=== PATIENT | male | born 1950 | race Caucasian/White ===

== ENCOUNTER → 2016-12-23 | Outpatient (CLI) | payer OTHER ==
--- NOTE | 2016-12-23 08:56 | US ---
EXAMINATION TYPE: US kidneys/renal and bladder DATE OF EXAM: 12/23/2016 COMPARISON: NONE CLINICAL HISTORY: N18.9 Chronic Kidney Disease. EXAM MEASUREMENTS: Right Kidney: 11.2 x 5.9 x 4.9 cm Left Kidney: 11.2 x 5.4 x 4.8 cm Right Kidney: no evidence of hydronephrosis or mass Left Kidney: cystic area mid = 2.1 x 2.4 x 2.9cm Bladder: appears wnl Bilateral Jets seen: yes The right kidney appears morphologically normal. There is a cystic lesion in the mid polar region of the left kidney measured 2.1 x 2.4 x 2.9 cm. This has low-level internal echoes and does not meet the requirements of simple cyst. IMPRESSION: 2.9 CM CYSTIC LESION IN THE LEFT KIDNEY DOES NOT MEET THE REQUIREMENTS OF A SIMPLE CYST. FURTHER INVE STIGATION WITH CT OR MR WOULD BE SUGGESTED.
== END | disposition home or self-care (01) ==
LOC: RADUSWWP 08:07
PROVIDERS: ATTEND Family Medicine
DX: Q61.9 Cystic kidney disease, unspecified (principal); N18.9 Chronic kidney disease, unspecified
CPT/HCPCS: 76770

== ENCOUNTER → 2017-01-13 | Outpatient (CLI) | payer MEDICARE, OTHER | END | disposition home or self-care (01) | LOC: LABWHC1 14:13 | PROVIDERS: ATTEND Internal Medicine | DX: Z01.812 Encounter for preprocedural laboratory examination (principal) | CPT/HCPCS: 36415; 82565 ==

== ENCOUNTER → 2017-01-15 | Outpatient (CLI) | payer MEDICARE, OTHER | END | disposition home or self-care (01) | LOC: RADMRIMAIN 07:54 | PROVIDERS: ATTEND Internal Medicine | DX: Z53.9 Procedure and treatment not carried out, unspecified reason (principal) ==

== ENCOUNTER → 2017-03-27 | Outpatient (CLI) | payer MEDICARE, OTHER ==
--- NOTE | 2017-03-27 13:30 | NM ---
EXAMINATION TYPE: NM stress cardiolite complete DATE OF EXAM: 03/27/2017 COMPARISON: NONE HISTORY: History of hypertension, diabetes, hypercholesteremia, and family history of coronary artery disease presents with chest pain and difficulty in breathing. TECHNIQUE: After the intravenous administration of 11.2 mCi Tc 99m Sestamibi - Rest images obtained 45 minutes post injection. The patient exercised using a CARO protocol and 1 minute prior to peak exercise was injected with 28.0 mCi Tc 99m Sestamibi - Stress images obtained 10 minutes post injecti on. FINDINGS: Targeted heart rate was achieved during performance of the study. Review of stress and rest SPECT waqas ges demonstrates no distinct perfusion abnormality. Gated analysis shows normal wall motion with an estimated left ventricular ejection fraction of 63 %. IMPRESSION: No convincing scintigraphic evidence for reversible ischemia
--- NOTE | 2017-03-27 22:04 | EST ---
EXERCISE STRESS Baseline EKG revealed a normal sinus rhythm with right bundle branch block pattern, and there was evidence of leftward axis. Patient walked for 4 minutes on standard Frederic protocol. Maximum heart rate was 136 beats per minute, more than 85% of predicted maximal. Resting blood pressure was 155/78. Peak blood pressure was 184/69. EKG remained unremarkable without ST-segment changes. However, because of minor resting changes, this is considered an inconclusive stress test with limited exercise capacity. IMPRESSION: Limited exercise capacity. Technically inconclusive stress test, but at the above- mentioned stress level, patient did not have angina. There were no significant EKG changes. Baseline minor resting changes persisted. MMODL / IJN: [id number] /
== END ==
LOC: RADNMMAIN 10:11
PROVIDERS: ATTEND Internal Medicine
DX: R07.89 Other chest pain (principal)
CPT/HCPCS: 93017; 78452; A9500

== ENCOUNTER → 2021-12-12 | Outpatient (CLI) | payer MEDICARE, OTHER ==
[2021-12-12 17:30] LABS: Partial Thromboplastin Time 24.2 sec (22.0-30.0)
[2021-12-12 22:16] LABS: Appearance,Urine Clear (Clear); Bilirubin,Urine Negative (Negative); Blood,Urine Negative (Negative); Color,Urine Yellow; Glucose,Urine (UA) Negative (Negative); Hyaline Casts,Urine 5 /lpf (0-2); Ketones,Urine Negative (Negative); Leukocyte Esterase,Urine Negative (Negative); Mucus,Urine Rare /hpf; Nitrite,Urine Negative (Negative); Protein,Urine 2+ (Negative); RBC,Urine 1 /hpf (0-5); Specific Gravity,Urine 1.015 (1.001-1.035); Squamous Epithelial Cell,Urine <1 /hpf (0-4); Urobilinogen,Urine <2.0 mg/dL (<2.0); WBC,Urine 1 /hpf (0-5)
[2021-12-12 22:56] LABS: African American GFR (CKD) 45.4 (60.0-200.0); Albumin 3.6 g/dL (3.8-4.9); Albumin/Globulin Ratio 1.24 (1.60-3.17); Anion Gap 8.1 mmol/L (10.00-18.00); BUN/Creat Ratio 14.71 Ratio (12.00-20.00); Calcium 8.6 mg/dL (8.7-10.3); Carbon Dioxide 25.9 mmol/L (20.0-27.5); Globulin 2.9 g/dL (1.6-3.3); Non-African American GFR(CKD) 39.1 (60.0-200.0); Potassium 4.4 mmol/L (3.5-5.5); Total Bilirubin 0.3 mg/dL (0.30-1.20); Total Protein 6.5 g/dL (6.2-8.2)
[2021-12-12 23:29] LABS: HCT 36.6 % (39.6-50.0); HGB 11.6 g/dL (13.0-17.0); MCH 32.5 pg (27.0-32.0); MCHC 31.7 g/dL (32.0-37.0); MCV 102.5 fL (80.0-97.0); Mean Platelet Volume 10.9 fL (9.5-12.2); NRBC Per 100 WBC 0 /100 WBCS (0.0-0.0); Platelet Count 202 X 10*3/uL (140-440); RBC 3.57 X 10*6/uL (4.40-5.60); RDW 13.8 % (11.5-14.5); WBC 7.23 X 10*3/uL (4.50-10.00)
== END | disposition home or self-care (01) ==
LOC: LABPAT 12-11 14:08
PROVIDERS: ATTEND Orthopaedic Surgery
DX: Z01.812 Encounter for preprocedural laboratory examination (principal); M16.11 Unilateral primary osteoarthritis, right hip
CPT/HCPCS: 36415; 80053; 81001; 85027; 85610; 85730; 87070; 93005

== ENCOUNTER 2021-12-23 11:03 | Day surgery (SDC) | payer MEDICARE, OTHER ==
[2021-12-19 10:15] VITALS: BMI 43.5
[~2021-12-23 11:03] MED LIST: ACETAMINOPHEN TAB 500 MG TAB PO PRN; DEXAMETHASONE SOD PHOSPHATE 4 MG/ML 1 ML VIAL IV ONE; GABAPENTIN 300 MG CAP PO PRN; LIDOCAINE 1% (10MG/ML) FOR IV START INTRADERMA PRN; MELOXICAM 7.5 MG TAB PO PRN; ONDANSETRON 4 MG/2 ML VIAL IVP ONE; TRANEXAMIC ACID IN NACL,ISO-OS 1,000 MG in SALINE 1 100ML.BAG IVPB PRN; ceFAZolin 3 GM in SODIUM CHLORIDE 0.9% 100 ML IVPB PRN; fentaNYL (PF) 50 MCG/ML 2 ML AMP IV PRN
[2021-12-23] MEDS: LACTATED RINGERS 1,000 ML IV SCH (11:45)
[2021-12-23 12:31] LABS: Glucose,Whole Blood 172 mg/dL (75-99)
[2021-12-23] MEDS ORDERED: TRANEXAMIC ACID IN NACL,ISO-OS 1,000 MG/100 ML BAG ONE (13:38)
[2021-12-23] MEDS ORDERED: MIDAZOLAM 2 MG/2 ML VIAL ONE (13:38)
[2021-12-23] MEDS ORDERED: PHENYLEPHRINE-0.9% NACL SYG 1,000 MCG/10 ML SYRINGE ONE (13:38)
[2021-12-23] MEDS ORDERED: PROPOFOL 10 MG/ML 20 ML VIAL IV ONE (13:38)
[2021-12-23] MEDS ORDERED: fentaNYL (PF) 50 MCG/ML 2 ML AMP ONE (13:38)
[2021-12-23] MEDS ORDERED: ceFAZolin 1,000 MG in SODIUM CHLORIDE 0.9% 1,000 ML IRRIGATION ONE (14:13)
[2021-12-23] MEDS ORDERED: ROPIVACAINE 5 MG/ML 30 ML VIAL MISCELLANE ONE (14:59)
--- NOTE | 2021-12-23 15:06 | P.OP ---
Date of Procedure: 12/23/21 Preoperative Diagnosis: Severe osteoarthritis right hip Postoperative Diagnosis: Severe osteoarthritis right hip Procedure(s) Performed: Right total hip arthroplasty with a direct anterior approach Implants: [employer] Polarstem standard size 2 collar [employer] R3, 3 hole hemispherical acetabular shell, 54 mm [employer] Reflection 6.5 mm cancellus screw, 20 mm 2 [employer] R3, XLPE 20 acetabular liner [employer] Oxinium femoral head 36 m, +4 All components were press-fit. The articulation is Oxinium on polyethylene. Anesthesia: spinal Surgeon: Jefry Norman Dental Detail Representative #1: Kavya Ozuna Estimated Blood Loss (ml): 300 Pathology: other (Femoral head) Condition: stable Disposition: PACU Indications for Procedure: After failure of conservative treatment we discussed the surgical and nonsur gical treatment options at length. Patient wishes to proceed with a total hip arthroplasty with a direct anterior approach. Complications specific to this procedure were discussed at length, including but not limited to infection, leg length discrepancy, dislocation, nerve injury, and fracture. Covid-19 was also discussed at length with the patient, and they are aware of the current policies and procedures. The patient was given the option of delaying surgery, but they elect to proceed knowing these risks. Patient is aware of all these complications and informed consent was obtained Operative Findings: The operative findings are consistent with severe osteoarthritis of the right hip Description of Procedure: Patient was seen and evaluated in the preoperative area and the consent was reviewed. The operative site was marked with a skin marker. The patient was then brought to the operating room and given preoperative antibiotics intravenously. 1 g of Tranexamic acid was also given intravenously. A spinal anesthetic was administered by the anesthesia department. The patient was then placed on the Julian table with the bony prominences well-padded. The hip area was then prepped with a ChloraPrep solution and draped in the usual sterile fashion. A universal timeout was then performed, which confirmed the patient's name, surgical site, ALLERGIES, and procedure being performed on the consent. Next the incision site was located at 1 cm distal and 2 cm lateral to the anterior superior iliac spine. The skin and subcutaneous tissues were sharply incised. Incision was carefully dissected down to the fascia overlying the tensor fascia prudencio muscle. This fascia was then incised in line with the incision. Care was taken to stay laterally in order to avoid injuring the lateral femoral cutaneous nerve. Next, using blunt finger dissection, the tensor fascia prudencio muscle was dissected off its investing fascia. The muscle was then carefully retracted laterally with a cobra retractor over the lateral neck of the femur. Next, the circumflex vessels were identified and cauterized using the AquaMantis device. The anterior hip capsule was then exposed. The capsule was then opened and an inverted T fashion. Cobra retractors were then placed intracapsularly. The retractors were maintained intracapsular throughout the procedure. The proximal femur was then visualized. Fluoroscopic x-rays were then taken in order to evaluate the preoperative leg lengths. A small amount of traction was placed on the leg. The femoral neck was then osteotomized at the appropriate level above the lesser trochanter. A small wedge of bone was then removed from the remaining femoral head. Next, using a corkscrew the femoral head was removed from the acetabulum. On gross visual inspection, the femoral head had complete loss of articular cartilage and multiple periarticular osteophytes. The femoral head was then alex sured. Attention was then turned to the acetabulum. The acetabulum was exposed and any remaining labrum was excised. Sequential reaming of the acetabulum was performed using fluoroscopic guidance until there was a good bed of bleeding cancellus bone. When the appropriate size was reached, a trial was then placed. The position and fit of the trial was checked with fluoroscopy. The trial was then removed. Then, using fluoroscopic guidance, the final implant was impacted at 20 of anteversion and 40 of abduction, and fully seated in the acetabulum. 2 screws were then placed in the acetabulum. Again fluoroscopy was used to check position of the screws. Next, the liner was then impacted, with a 20 elevated liner located in the anterior superior quadrant. Component locking was confirmed. Attention was then directed to the femur. With the aid of the Julian table, the femur was externally rotated to approximately 130, extended, and adducted under the opposite leg. A side hook was then placed under the proximal femur, and the side hook elevator was used to elevate the proximal femur while releasing the capsule. Retractors were then placed. A capsular release was performed, as well as a release of the conjoined tendon, which afforded excellent visualization of the proximal femur. Next, a box osteotome was used to lateralize the proximal femur. A hand wood sander was then used to locate the femoral canal. Sequential broaching was then performed with appropriate size which afforded excellent fixation in the proximal femur. A trial was then placed with appropriate head and neck, and the hip was gently reduced with the aid of the Julian table. Fluoroscopy was then used to check position of the components, as well as to ensure equal leg lengths. The hip was then gently dislocated and the trials were then removed. Final implants were then impacted and the hip was again reduced. Final fluoroscopic x-rays confirmed that the components were in anatomic position, as well as equal leg lengths. The hip was also taken through range of motion, and found to be stable. The hip was then copiously irrigated with antibiotic solution with pulsatile lavage. The hip was then irrigated with Irrisept solution. The soft tissues were then injected with a ropivacaine solution. A second dose of 1 g of Tranexamic acid was also given intravenously. The fascia was then closed with 2-0 strata fix suture. The subcutaneous tissue was closed with 3-0 Vicryl. The subcuticular tissue was closed with 3-0 strata fix suture. The skin was then closed with Exofin skin glue. After the glue and dried, and Optifoam silver impregnated dressing was applied. The patient was then transferred to the recovery room in stable condition. The data analysis assistant LOREE Bridges was required due to the complexity of surgery, and the need for skilled surgical territory manager for positioning, draping, exposure, retraction, and closure of the wound.
[2021-12-23] MEDS ORDERED: LACTATED RINGERS 1,000 ML IV ONE (15:08)
[2021-12-23] MEDS ORDERED: NALOXONE 0.4 MG/ML 1 ML VIAL IV PRN (15:34)
[2021-12-23] MEDS ORDERED: HYDROmorphone 0.5 MG/0.5 ML SYRINGE IVP PRN ×2 (15:34)
[2021-12-23] MEDS ORDERED: MAGNESIUM HYDROXIDE 2,400 MG/10 ML CUP PO PRN (15:34)
--- NOTE | 2021-12-23 15:58 | XR ---
EXAMINATION TYPE: XR Hip Limited RT DATE OF EXAM: 12/23/2021 Comparison: None Clinical History: 71-year-old male Status post hip surgery, assess surgical alignment Findings: Image shows placement of right total hip arthroplasty. Both acetabular cup and femoral stem component s of the prosthesis are well seated without periprosthetic fracture. Alignment grossly anatomic. Scat tered soft tissue air related to recent operation. Vascular calcifications noted. Impression: Uncomplicated postoperative appearance right hip total arthroplasty.
[2021-12-23 16:09] LABS: Glucose,Whole Blood 113 mg/dL (75-99)
--- NOTE | 2021-12-23 18:59 | XR ---
EXAMINATION TYPE: XR Hip Limited RT, FL guidance operating room DATE OF EXAM: 12/23/2021 Comparison: None Clinical History: 71-year-old male Rt Hip-Ant Findings: Intraoperative fluoroscopic images during placement of right hip total arthroplasty. FLUOROSCOPY Fluoroscopy time of 1 minute 23 seconds was used during right hip total arthroplasty. 3 image/s docu ment/s the procedure. Impression: Intraoperative fluoroscopy as above.
[2021-12-23 20:14] LABS: Glucose,Whole Blood 212 mg/dL (75-99)
[2021-12-23] MEDS: HYDROmorphone 0.5 MG/0.5 ML SYRINGE IVP PRN (20:17)
[2021-12-23] MEDS: INSULIN ASPART (NovoLOG) 100 UNIT/ML VIAL SQ SCH (20:18)
[2021-12-23] MEDS: ceFAZolin 3 GM in SODIUM CHLORIDE 0.9% 100 ML IVPB SCH (20:18)
[2021-12-23] MEDS: ASPIRIN 325 MG TAB PO SCH (20:18)
[2021-12-23] MEDS ORDERED: INSULIN DETEMIR (LEVEMIR) 100 UNIT/ML SYR SQ SCH (21:00)
[2021-12-23] MEDS ORDERED: SENNOSIDES-DOCUSATE SODIUM 1 EACH TAB PO SCH (21:00)
[2021-12-23] MEDS ORDERED: ATORVASTATIN 10 MG TAB PO SCH (21:00)
[2021-12-23] MEDS: HYDROcodone/APAP 7.5-325MG 1 EACH TAB PO PRN (22:19)
[2021-12-24] MEDS: HYDROmorphone 0.5 MG/0.5 ML SYRINGE IVP PRN ×2 (01:44→07:06)
[2021-12-24] MEDS: ceFAZolin 3 GM in SODIUM CHLORIDE 0.9% 100 ML IVPB SCH (04:29)
[2021-12-24] MEDS: HYDROcodone/APAP 7.5-325MG 1 EACH TAB PO PRN ×2 (06:03→11:18)
[2021-12-24] MEDS ORDERED: LEVOTHYROXINE 100 MCG TAB PO SCH (06:30)
[2021-12-24 06:51] LABS: Glucose,Whole Blood 169 mg/dL (75-99)
[2021-12-24] MEDS: LACTATED RINGERS 1,000 ML IV SCH (06:59)
[2021-12-24] MEDS: INSULIN ASPART (NovoLOG) 100 UNIT/ML VIAL SQ SCH ×4 (07:01→12:23)
[2021-12-24] MEDS: ASPIRIN 325 MG TAB PO SCH (07:07)
[2021-12-24 07:56] VITALS: BP 154/79; PULSE 67; RESP 20; TEMP 98.2
[2021-12-24] MEDS ORDERED: TAMSULOSIN 0.4 MG CAP.ER.24H PO SCH (09:00)
[2021-12-24] MEDS ORDERED: LORATADINE 10 MG TAB PO SCH (09:00)
[2021-12-24] MEDS ORDERED: LOSARTAN 25 MG TAB PO SCH (09:00)
[2021-12-24] MEDS ORDERED: allopurinoL 100 MG TAB PO SCH (09:00)
[2021-12-24] MEDS ORDERED: atenoloL 50 MG TAB PO SCH (09:00)
[2021-12-24 09:07] LABS: Basophils # (A) 0.02 X 10*3/uL (0.00-0.10); Basophils % (A) 0.3 %; Eosinophils % (A) 1.4 %; HCT 32.4 % (39.6-50.0); Immature Grans, Automated 0.3 %; Lymphocytes # (A) 1.07 X 10*3/uL (0.90-5.00); Lymphocytes % (A) 14.5 %; MCH 31.7 pg (27.0-32.0); MCHC 30.9 g/dL (32.0-37.0); MCV 102.9 fL (80.0-97.0); Mean Platelet Volume 10.6 fL (9.5-12.2); Monocytes # (A) 0.78 X 10*3/uL (0.20-1.00); Monocytes % (A) 10.6 %; NRBC Per 100 WBC 0 /100 WBCS (0.0-0.0); Neutrophils # (A) 5.39 X 10*3/uL (1.80-7.70); Neutrophils % (A) 72.9 %; Platelet Count 190 X 10*3/uL (140-440); RBC 3.15 X 10*6/uL (4.40-5.60); RDW 13.8 % (11.5-14.5); WBC 7.38 X 10*3/uL (4.50-10.00)
--- NOTE | 2021-12-24 10:58 | P.DS ---
Providers Expected date of discharge: 12/24/21 Attending physician: Jefry Norman Consults: 12/23/21 15:34 Consult Physician Routine Consulting Provider: Dane Mejia Reason/Comments: Medical management Do you want consulting provider notified?: Yes Primary care physician: Dane Mejia [facility] Course: This is a 71-year-old male who has been followed in our office by Dr. Norman for continued complaints of right hip pain due to right hip osteoarthritis. Treatment options were discussed, and patient elected to undergo a right total hip arthroplasty. Patient was seen pre-operatively by Dr. Mejia and cleared for surgery. Patient underwent a right total hip arthroplasty on 12/23/21. The procedure was performed without complication or sequelae. The patient is doing fairly well postoperatively. Vital signs and labs are stable on postoperative day #1. Patient was examined bedside today. He is up to the bedside chair. Patient states he is overall doing very well and the pain in his right hip is well- controlled. He has been ambulating with a walker with minimal assistance. He has worked with physical therapy this morning. Patient is tolerating his breakfast well. He is voiding without issues. Patient is comfortable being discharged home today. Patient denies chest pain, shortness of breath, nausea, vomiting, fevers, chills. On examination, the patient is sitting up in the bedside chair in no apparent distress. He is alert and orientated 3. On inspection of the right hip, there is a clean, dry, intact Optifoam dressing in place. There is no bleeding or drainage the dressing. Patient has good strength and ROM of the right ankle and toes. Motor and sensory function is intact of the right lower extremity. The dorsalis pedis pulse is easily palpable, the right lower extremity is warm and well perfused with brisk capillary refill. Calf is soft and non-tender to palpation. Patient is discharged home with home health in good condition, pending medical clearance. Patient will follow-up with Dr. Norman in the office in 2 weeks. Please see med rec for accurate list of discharge medication. Plan - Discharge Summary Discharge Rx Participant: Yes New Discharge Prescriptions: New Meloxicam [Mobic] 1 - 2 tab PO DAILY PRN #30 tab PRN Reason: Pain Sennosides-Docusate Sodium [Senokot-S] 1 tab PO BID #60 tablet Aspirin 325 mg PO BID #60 tab HYDROcodone/APAP 7.5-325MG [[place] 7.5-325] 1 - 2 tab PO Q6HR PRN #32 tab PRN Reason: Pain Ondansetron Odt [Zofran Odt] 4 mg PO Q8HR PRN #14 tab PRN Reason: Nausea No Action Insulin Glargine,Hum.rec.anlog [Lantus Solostar Pen] 13 unit SQ HS Loratadine [Claritin] 10 mg PO DAILY Atorvastatin [Lipitor] 10 mg PO HS Cholecalciferol [Vitamin D3 (25 Mcg = 1000 Iu)] 50 mcg PO DAILY Insulin Aspart [NovoLOG Flexpen] 13 units SQ TID-W/MEALS Tamsulosin [Flomax] 0.4 mg PO DAILY Allopurinol [Zyloprim] 100 mg PO DAILY Atenolol [Tenormin] 50 mg PO DAILY Multivitamins, Thera [Multivitamin (formulary)] 1 tab PO DAILY Losartan [Cozaar] 25 mg PO DAILY Levothyroxine Sodium [Synthroid] 100 mcg PO DAILY Cyanocobalamin (Vitamin B-12) [Vitamin B-12] 1,000 mcg PO DAILY Aspirin [Adult Low Dose Aspirin EC] 81 mg PO DAILY Discharge Medication List Allopurinol [Zyloprim] 100 mg PO DAILY 12/19/21 [History] Aspirin [Adult Low Dose Aspirin EC] 81 mg PO DAILY 12/19/21 [History] Atenolol [Tenormin] 50 mg PO DAILY 12/19/21 [History] Atorvastatin [Lipitor] 10 mg PO HS 12/19/21 [History] Cholecalciferol [Vitamin D3 (25 Mcg = 1000 Iu)] 50 mcg PO DAILY 12/19/21 [History] Cyanocobalamin (Vitamin B-12) [Vitamin B-12] 1,000 mcg PO DAILY 12/19/21 [Hi story] Insulin Aspart [NovoLOG Flexpen] 13 units SQ TID-W/MEALS 12/19/21 [History] Insulin Glargine,Hum.rec.anlog [Lantus Solostar Pen] 13 unit SQ HS 12/19/21 [History] Levothyroxine Sodium [Synthroid] 100 mcg PO DAILY 12/19/21 [History] Loratadine [Claritin] 10 mg PO DAILY 12/19/21 [History] Losartan [Cozaar] 25 mg PO DAILY 12/19/21 [History] Multivitamins, Thera [Multivitamin (formulary)] 1 tab PO DAILY 12/19/21 [History] Tamsulosin [Flomax] 0.4 mg PO DAILY 12/19/21 [History] Aspirin 325 mg PO BID #60 tab 12/23/21 [Rx] HYDROcodone/APAP 7.5-325MG [[place] 7.5-325] 1 - 2 tab PO Q6HR PRN #32 tab 12/23/21 [Rx] Meloxicam [Mobic] 1 - 2 tab PO DAILY PRN #30 tab 12/23/21 [Rx] Ondansetron Odt [Zofran Odt] 4 mg PO Q8HR PRN #14 tab 12/23/21 [Rx] Sennosides-Docusate Sodium [Senokot-S] 1 tab PO BID #60 tablet 12/23/21 [Rx] Follow up Appointment(s)/Referral(s): [facility], [NON-STAFF] - ([facility] will contact you to arrange a visit) Jefry Norman DO [Doctor of Osteopathic Medicine] - 01/06/22 2:45 pm Activity/Diet/Wound Care/Special Instructions: May bear wt as tolerated w walker. Keep Optifoam dressing intact 7 days post op. May shower. Discharge Disposition: HOME WITH HOME HEALTH SERVICES
[2021-12-24] MEDS ORDERED: PANTOPRAZOLE 40 MG/10 ML VIAL IVP SCH (11:00)
[2021-12-24 11:06] LABS: Glucose,Whole Blood 126 mg/dL (75-99)
--- NOTE | 2021-12-24 13:05 | P.CONS ---
History of Present Illness - Reason for Consult Consult date: 12/24/21 Medical management DM,HTN Requesting physician: Jefry Norman - Chief Complaint Severe right hip osteoarthritis status post surgical repair - History of Present Illness This is a 71 -year-old gentleman status post right total hip arthroplasty with a direct anterior approach secondary to severe right hip osteoarthritis, postop day #1, with a past medical history of diabetes mellitus, deafness, hypertension, hyperlipidemia, hypothyroidism, gout, BPH and multiple other m edical issues. Tolerated procedure well. Pain controlled on current regimen. Participate with physical therapy, ambulating with walker, tolerated exertion well. Denies lightheadedness, dizziness or focal deficits. Denies chest pain, palpitations or shortness of breath. Good diet intake with blood sugars controlled. Blood pressures better controlled, home medication regime /antihypertensive resumed this morning this morning. Afebrile, normal WBC. Hemoglobin 10, platelets 190. Review of Systems Constitutional: Denied any fatigue denied any fever. Cardio vascular: denied any chest pain, palpitations Gastrointestinal denied any nausea vomiting Pulmonary: Denied any shortness of breath cough Neurologic denied any new focal deficits ROS Statement: Those systems with pertinent positive or pertinent negative responses have been documented in the HPI. ROS Other: All systems not noted in ROS Statement are negative. Past Medical History Past Medical History: Diabetes Mellitus, Hearing Disorder / Deafness, Hyperlipidemia, Hypertension, Musculoskeletal Disorder, Osteoarthritis (OA), Thyroid Disorder Additional Past Medical History / Comment(s): GOUT, BPH, BILAT HEARING AIDS History of Any Multi-Drug Resistant Organisms: None Reported Past Surgical History: Appendectomy, Joint Replacement Additional Past Surgical History / Comment(s): BILAT CATARACTS REMOVED WITH LENS IMPLANTS. COLONOSCOPY. Ant. TRH 12/23/2021 Past Anesthesia/Blood Transfusion Reactions: No Reported Reaction Past Psychological History: No Psychological Hx Reported Smoking Status: Never smoker Past Alcohol Use History: Occasional Past Drug Use History: None Reported - Past Family History Mother Family Medical History: Cancer Medications and Allergies Home Medications Medication Instructions Recorded Confirmed Type Allopurinol [Zyloprim] 100 mg PO DAILY 12/19/21 12/23/21 History Aspirin [Adult Low Dose Aspirin EC] 81 mg PO DAILY 12/19/21 12/23/21 History Atenolol [Tenormin] 50 mg PO DAILY 12/19/21 12/23/21 History Atorvastatin [Lipitor] 10 mg PO HS 12/19/21 12/23/21 History Cholecalciferol [Vitamin D3 (25 50 mcg PO DAILY 12/19/21 12/23/21 History Mcg = 1000 Iu)] Cyanocobalamin (Vitamin B-12) 1,000 mcg PO DAILY 12/19/21 12/23/21 History [Vitamin B-12] Insulin Aspart [NovoLOG Flexpen] 13 units SQ TID-W/MEALS 12/19/21 12/23/21 History Insulin Glargine,Hum.rec.anlog 13 unit SQ HS 12/19/21 12/23/21 History [Lantus Solostar Pen] Levothyroxine Sodium [Synthroid] 100 mcg PO DAILY 12/19/21 12/23/21 History Loratadine [Claritin] 10 mg PO DAILY 12/19/21 12/23/21 History Losartan [Cozaar] 25 mg PO DAILY 12/19/21 12/23/21 History Multivitamins, Thera [Multivitamin 1 tab PO DAILY 12/19/21 12/23/21 History (formulary)] Tamsulosin [Flomax] 0.4 mg PO DAILY 12/19/21 12/23/21 History Aspirin 325 mg PO BID #60 tab 12/23/21 Rx HYDROcodone/APAP 7.5-325MG [[place] 1 - 2 tab PO Q6HR PRN #32 tab 12/23/21 Rx 7.5-325] Meloxicam [Mobic] 1 - 2 tab PO DAILY PRN #30 tab 12/23/21 Rx Ondansetron Odt [Zofran Odt] 4 mg PO Q8HR PRN #14 tab 12/23/21 Rx Sennosides-Docusate Sodium 1 tab PO BID #60 tablet 12/23/21 Rx [Senokot-S] Allergies Allergy/AdvReac Type Severity Reaction Status Date / Time albuterol Allergy Rash/Hives Verified 12/23/21 11:57 Physical Exam Vitals: Vital Signs Temp Pulse Resp BP Pulse Ox 12/24/21 07:56 98.2 F 67 20 154/79 93 L 12/24/21 01:41 98.0 F 69 17 155/76 96 12/23/21 20:31 57 L 154/78 12/23/21 18:47 97.4 F L 61 18 172/68 95 12/23/21 18:20 54 L 159/92 98 12/23/21 18:05 61 149/72 98 12/23/21 17:50 49 L 154/76 96 12/23/21 17:35 51 L 162/73 97 12/23/21 17:20 49 L 172/68 98 12/23/21 16:59 50 L 17 145/65 97 12/23/21 16:30 50 L 16 116/58 99 12/23/21 16:15 50 L 16 117/53 95 12/23/21 16:00 69 17 111/51 97 12/23/21 15:45 51 L 16 90/50 98 12/23/21 15:29 96.9 F L 52 L 16 80/55 97 12/23/21 12:09 98.0 F 63 16 176/61 98 Intake and Output 12/23/21 12/24/21 12/24/21 22:59 06:59 14:59 Intake Total 1720 Output Total 700 550 Balance 1020 -550 Intake: IV 1600 Oral 120 Output: Urine 400 550 Estimated Blood Loss 300 Other: # Voids 1 1 1 Weight 140.2 kg PHYSICAL EXAM: VITAL SIGNS: As above GENERAL: Sitting up in chair, no acute distress HEENT: Conjunctivae normal. eyes normal. NECK: Supple, No JVD. No thyroid enlargement. No LNs CARDIOVASCULAR: S1, S2 regular. No murmur RESPIRATION: Breath sounds diminished in the bases. No rhonchi or crackles. No bronchial breathing. ABDOMEN: Soft, nontender . No guarding. no masses palpable. No ascites, No hepatosplenomegaly.Bowel sounds heard. LEGS: Right hip dressing clean dry and intact, no lower calf pain, positive DP pulse. No edema. PSYCHIATRY: Alert and oriented X3, mood and affect normal. NERVOUS SYSTEM: Cranial N 2-12 grossly normal. Moves all 4 limbs. No focal deficits. Strength and sensation grossly intact. Skin: Warm and dry, no rash. Results CBC & Chem 7: 12/24/21 05:26 Labs: Abnormal Lab Results - Last 24 Hours (Table) 12/23/21 12/23/21 12/23/21 Range/Units 12:28 16:08 20:12 RBC (4.40-5.60) X 10*6/uL Hgb (13.0-17.0) g/dL Hct (39.6-50.0) % MCV (80.0-97.0) fL MCHC (32.0-37.0) g/dL POC Glucose (mg/dL) 172 H 113 H 212 H (75-99) mg/dL 12/24/21 12/24/21 Range/Units 05:26 06:49 RBC 3.15 L (4.40-5.60) X 10*6/uL Hgb 10.0 L (13.0-17.0) g/dL Hct 32.4 L (39.6-50.0) % MCV 102.9 H (80.0-97.0) fL MCHC 30.9 L (32.0-37.0) g/dL POC Glucose (mg/dL) 169 H (75-99) mg/dL Assessment and Plan Assessment: Severe right hip osteoarthritis status post right total hip arthroplasty with direct anterior approach Diabetes mellitus Hypertension Hyperlipidemia Hearing disorder BPH Hypothyroidism Plan: Continue on current medication regime, monitoring and symptomatic treatment.Home meds reviewed and resumed accordingly. PPI added to med regimen for GI prophylaxis. Pain management/anticoagulation as per primary. Follow wit h PCP in one week. Thank you Dr. Norman for the consult. The impression and plan of care has been dictated as directed. : I performed a history and examination of this patient, discussed the same with the dictator. I agree with the dictator's note ,documented as a scribe. Any additional findings or plans will be noted.
[2021-12-24] MEDS ORDERED: TEMAZEPAM 15 MG CAP PO PRN (22:00)
== END 2021-12-24 12:49 | disposition home health service (06) ==
LOC: OR 11:03 → 4SSUR 15:29 → OR 12-24 12:49
PROVIDERS: ATTEND Orthopaedic Surgery
DX: M16.11 Unilateral primary osteoarthritis, right hip (principal); E03.9 Hypothyroidism, unspecified; E78.5 Hyperlipidemia, unspecified; I10 Essential (primary) hypertension; M10.9 Gout, unspecified; N40.0 Benign prostatic hyperplasia without lower urinary tract symptoms; Z79.1 Long term (current) use of non-steroidal anti-inflammatories (NSAID); Z79.82 Long term (current) use of aspirin; Z90.49 Acquired absence of other specified parts of digestive tract; Z96.641 Presence of right artificial hip joint
CPT/HCPCS: 27130; 97162; 85025; 88300; 73501; C1776; J0690 ×3; J2405; J2795; J1170 ×2; 86850; 86900; 86901

== ENCOUNTER → 2022-11-19 | Outpatient (CLI) | payer MEDICARE, OTHER ==
[2022-11-19 12:59] LABS: Partial Thromboplastin Time 24.3 sec (22.0-30.0)
[2022-11-19 15:44] LABS: Appearance,Urine Clear (Clear); Bilirubin,Urine Negative (Negative); Blood,Urine Negative (Negative); Color,Urine Yellow (Yellow); Ketones,Urine Negative (Negative); Nitrite,Urine Negative (Negative); PH, Urine 6.5 (5.0-8.0); Specific Gravity,Urine 1.014 (1.001-1.030)
[2022-11-19 15:52] LABS: Bacteria,Urine None Seen /HPF (None Seen)
[2022-11-19 15:56] LABS: HCT 35.7 % (39.6-50.0); HGB 11.1 g/dL (13.0-17.0); MCH 30.9 pg (27.0-32.0); MCHC 31.1 g/dL (32.0-37.0); MCV 99.4 fL (80.0-97.0); Mean Platelet Volume 10.8 fL (9.5-12.2); NRBC Per 100 WBC 0 /100 WBCS (0.0-0.0); Platelet Count 218 X 10*3/uL (140-440); RBC 3.59 X 10*6/uL (4.40-5.60); WBC 7.57 X 10*3/uL (4.50-10.00)
[2022-11-19 18:14] LABS: Prothrombin Time 10.8 sec (9.0-12.0)
[2022-11-19 20:28] LABS: African American GFR (CKD) 35.3 (60.0-200.0); Albumin 3.6 g/dL (3.8-4.9); Albumin/Globulin Ratio 1.32 (1.60-3.17); Anion Gap 10.2 mmol/L (10.00-18.00); BUN/Creat Ratio 13.85 Ratio (12.00-20.00); Blood Urea Nitrogen 28.8 mg/dL (9.0-27.0); Calcium 8.7 mg/dL (8.7-10.3); Carbon Dioxide 26.3 mmol/L (20.0-27.5); Globulin 2.8 g/dL (1.6-3.3); Non-African American GFR(CKD) 30.5 (60.0-200.0); Potassium 4.8 mmol/L (3.5-5.5); Total Bilirubin 0.3 mg/dL (0.30-1.20); Total Protein 6.4 g/dL (6.2-8.2)
== END | disposition home or self-care (01) ==
LOC: LABPAT 09:50
PROVIDERS: ATTEND Orthopaedic Surgery
DX: Z01.812 Encounter for preprocedural laboratory examination (principal); M17.12 Unilateral primary osteoarthritis, left knee; I45.10 Unspecified right bundle-branch block; I44.4 Left anterior fascicular block; I45.2 Bifascicular block; R94.31 Abnormal electrocardiogram [ECG] [EKG]
CPT/HCPCS: 36415; 80053; 81001; 85027; 85610; 85730; 87070; 93005

== ENCOUNTER 2022-12-02 10:28 | Observation (INO) | payer MEDICARE, OTHER ==
[2022-12-02 17:29] LABS: Glucose,Whole Blood 124 mg/dL (70-110)
[2022-12-02] MEDS ORDERED: LORATADINE 10 MG TAB PO PRN (18:18)
[2022-12-02] MEDS: INSULIN ASPART (NovoLOG) 100 UNIT/ML VIAL SQ SCH ×2 (18:29→21:16)
[2022-12-02] MEDS: SODIUM CHLORIDE 0.9% 1,000 ML IV SCH (18:30)
[2022-12-02 19:58] LABS: Glucose,Whole Blood 136 mg/dL (70-110)
[2022-12-02] MEDS ORDERED: INSULIN DETEMIR (LEVEMIR) 100 UNIT/ML SYR SQ SCH (21:00)
[2022-12-02] MEDS ORDERED: TAMSULOSIN 0.4 MG CAP.ER.24H PO SCH (21:00)
[2022-12-03 02:06] LABS: Anion Gap 7.8 mmol/L (10.00-18.00); BUN/Creat Ratio 18.78 Ratio (12.00-20.00); Blood Urea Nitrogen 33.8 mg/dL (9.0-27.0); Calcium 8.4 mg/dL (8.7-10.3); Carbon Dioxide 24.2 mmol/L (20.0-27.5); Non-African American GFR(CKD) 36.3 (60.0-200.0); Potassium 4.5 mmol/L (3.5-5.5)
[2022-12-03 02:22] LABS: HCT 33.4 % (39.6-50.0); HGB 10.3 g/dL (13.0-17.0); MCH 31.4 pg (27.0-32.0); MCHC 30.8 g/dL (32.0-37.0); MCV 101.8 fL (80.0-97.0); Mean Platelet Volume 10.7 fL (9.5-12.2); NRBC Per 100 WBC 0 /100 WBCS (0.0-0.0); Platelet Count 221 X 10*3/uL (140-440); RBC 3.28 X 10*6/uL (4.40-5.60); RDW 14.5 % (11.5-14.5); WBC 8.64 X 10*3/uL (4.50-10.00)
[2022-12-03] MEDS: SODIUM CHLORIDE 0.9% 1,000 ML IV SCH ×2 (05:58→12:41)
[2022-12-03 06:07] LABS: Glucose,Whole Blood 113 mg/dL (70-110)
[2022-12-03] MEDS: INSULIN ASPART (NovoLOG) 100 UNIT/ML VIAL SQ SCH ×3 (06:20→17:54)
[2022-12-03] MEDS ORDERED: LEVOTHYROXINE 100 MCG TAB PO SCH (06:30)
[2022-12-03] MEDS ORDERED: allopurinoL 100 MG TAB PO SCH (09:00)
[2022-12-03] MEDS ORDERED: ATORVASTATIN 40 MG TAB PO SCH (09:00)
[2022-12-03] MEDS ORDERED: CHOLECALCIFEROL 25 MCG (1000 IU) TABLET PO SCH (09:00)
[2022-12-03] MEDS ORDERED: atenoloL 25 MG TAB PO SCH (09:00)
[2022-12-03] MEDS ORDERED: ASPIRIN 81 MG PO SCH (09:00)
[2022-12-03] MEDS ORDERED: CYANOCOBALAMIN 500 MCG TAB PO SCH (09:00)
[2022-12-03] MEDS ORDERED: MULTIVITAMINS, THERA 1 EACH TAB PO SCH (09:00)
[2022-12-03] MEDS ORDERED: LOSARTAN 50 MG TAB PO SCH (09:00)
[2022-12-03 09:13] LABS: African American GFR (CKD) 39 (>60 ml/min/1.73 sqM); Anion Gap 8 mmol/L; Blood Urea Nitrogen 30 mg/dL (9-20); Calcium 8.3 mg/dL (8.4-10.2); Carbon Dioxide 24 mmol/L (22-30); Chloride 106 mmol/L (98-107); Glucose 144 mg/dL (74-99); Non-African American GFR(CKD) 34 (>60 ml/min/1.73 sqM); Potassium 4.4 mmol/L (3.5-5.1); Sodium 138 mmol/L (137-145)
[2022-12-03] MEDS: BENZOCAINE SPRAY 1 CAN TOPICAL ONE ×2 (10:00→10:05)
[2022-12-03] MEDS ORDERED: MIDAZOLAM 2 MG/2 ML VIAL IVP ONE (10:06)
[2022-12-03] MEDS ORDERED: fentaNYL (PF) 50 MCG/ML 2 ML AMP IVP ONE (10:06)
[2022-12-03] MEDS: MIDAZOLAM 2 MG/2 ML VIAL IVP ONE ×2 (10:10→10:17)
[2022-12-03] MEDS: SODIUM CHLORIDE 0.9% 1,000 ML IV ONE ×2 (10:23→12:40)
[2022-12-03] MEDS ORDERED: SODIUM CHLORIDE 0.9% 1,000 ML IV ONE ×2 (10:23)
[2022-12-03] MEDS ORDERED: IV FLUID CONTINUATION 1,000 ML IV ONE (11:20)
[2022-12-03] MEDS ORDERED: LIDOCAINE 1% INJ 10MG/ML (5 ML VIAL-PF) SQ ONE (11:32)
[2022-12-03] MEDS ORDERED: MIDAZOLAM 2 MG/2 ML VIAL IV ONE (11:32)
[2022-12-03] MEDS: VERAPAMIL SYRINGE (5 MG/10 ML) INTRAARTER ONE ×2 (11:35→11:49)
[2022-12-03] MEDS ORDERED: HEPARIN SODIUM 1,000 UN/ML (10ML VL) IV ONE (11:42)
[2022-12-03] MEDS ORDERED: IOPAMIDOL-370 100ML BTL INJ ONE (11:48)
[2022-12-03] MEDS ORDERED: amLODIPine 5 MG TAB PO STA ×2 (12:28→17:04)
[2022-12-03 12:38] LABS: Glucose,Whole Blood 119 mg/dL (70-110)
[2022-12-03] MEDS ORDERED: SODIUM CHLORIDE 0.9% 1,000 ML IV SCH (12:45)
--- NOTE | 2022-12-03 12:45 | P.NPCON ---
History of Present Illness - Reason for Consult acute renal failure, chronic renal failure - History of Present Illness Reason for consultation: Acute kidney injury on chronic kidney disease History of present illness: Patient is a 72-year-old male seen in renal consultation for acute kidney injury on chronic kidney disease. Patient has chronic kidney disease stage IIIa baseline creatinine near 1.5-1.6 secondary to diabetic kidney disease. Creatinine this admission has been in the range of 1.8-1.9. Patient came to the hospital for elective cardiac cath which was completed this morning. No interv entions done however he will need aortic valve replaced due to stenosis. He denies chest pain or shortness of breath. No vomiting or diarrhea. No fever or chills. Admits to good urine output. No hematuria or dysuria. He does have long-standing history of diabetes. He denies use of nonsteroidals. He is currently receiving IV fluids. Vital signs are stable. General: No acute distress. HEENT: Head exam is unremarkable. LUNGS: No audible rhonchi or wheezes. HEART: Rate and Rhythm are regular. ABDOMEN: Obese, nontender. EXTREMITITES: No edema. Past Medical History Past Medical History: Diabetes Mellitus, Hearing Disorder / Deafness, Hypertension, Renal Disease, Thyroid Disorder Additional Past Medical History / Comment(s): CHRONIC KIDNEY DISEASE, MACULAR DEGENERATION, NEUROPATHY - BOTH FEET History of Any Multi-Drug Resistant Organisms: None Reported Past Surgical History: Appendectomy, Joint Replacement Additional Past Surgical History / Comment(s): BILAT CATARACTS REMOVED WITH LENS IMPLANTS. COLONOSCOPY, TOTAL RIGHT HIP Past Anesthesia/Blood Transfusion Reactions: No Reported Reaction Past Psychological History: No Psychological Hx Reported Smoking Status: Never smoker Past Alcohol Use History: Occasional Past Drug Use History: None Reported - Past Family History Mother Family Medical History: Cancer Medications and Allergies Home Medications Medication Instructions Recorded Confirmed Type Aspirin [Adult Low Dose Aspirin EC] 81 mg PO DAILY 12/19/21 12/02/22 History Cholecalciferol [Vitamin D3 (25 50 mcg PO DAILY 12/19/21 12/02/22 History Mcg = 1000 Iu)] Cyanocobalamin (Vitamin B-12) 1,000 mcg PO DAILY 12/19/21 12/02/22 History [Vitamin B-12] Insulin Aspart [NovoLOG Flexpen] 13 units SQ TID-W/MEALS 12/19/21 12/02/22 History Insulin Glargine,Hum.rec.anlog 26 unit SQ HS 12/19/21 12/02/22 History [Lantus Solostar Pen] Levothyroxine Sodium [Synthroid] 100 mcg PO DAILY 12/19/21 12/02/22 History Loratadine [Claritin] 10 mg PO DAILY PRN 12/19/21 12/02/22 History Multivitamins, Thera [Multivitamin 1 tab PO DAILY 12/19/21 12/02/22 History (formulary)] Tamsulosin [Flomax] 0.4 mg PO HS 12/19/21 12/02/22 History allopurinoL [Zyloprim] 200 mg PO DAILY 12/19/21 12/02/22 History atenoloL [Tenormin] 25 mg PO DAILY 12/19/21 12/02/22 History Meloxicam [Mobic] 1 - 2 tab PO DAILY PRN #30 tab 12/23/21 12/02/22 Rx Losartan [Cozaar] 50 mg PO DAILY 12/02/22 12/02/22 History Rosuvastatin [Crestor] 20 mg PO DAILY 12/02/22 12/02/22 History Allergies Allergy/AdvReac Type Severity Reaction Status Date / Time albuterol Allergy Rash/Hives Verified 12/02/22 18:02 Physical Exam Vitals: Vital Signs Temp Pulse Pulse Resp BP BP Pulse Ox 12/03/22 10:15 71 14 155/70 98 12/03/22 10:10 77 16 159/74 98 12/03/22 10:05 75 16 183/78 100 12/03/22 09:15 17 12/03/22 07:31 97 12/03/22 06:57 97.8 F 63 18 169/71 98 12/03/22 02:37 98.0 F 65 16 179/82 97 12/02/22 19:18 97.5 F L 70 16 174/72 98 12/02/22 16:33 97.5 F L 72 16 164/69 97 Intake and Output 12/02/22 12/03/22 12/03/22 22:59 06:59 14:59 Intake Total 240 350 Balance 240 350 Intake: IV 350 Oral 240 Other: Voiding Method Toilet # Voids 1 1 Weight 140.7 kg Results - Lab Results Most recent lab results Calcium 8.3 mg/dL (8.4-10.2) L 12/03/22 08:21 12/02/22 17:25 12/03/22 08:21 Assessment and Plan Plan: Assessment: 1. Mild acute kidney injury versus progression of underlying chronic kidney disease. Renal function stable with creatinine 1.8-1.9. 2. Chronic kidney disease stage III with baseline creatinine near 1.6 secondary to diabetic kidney disease. 3. Aortic stenosis. 4. Diabetes mellitus. 5. Hypertension with chronic kidney disease. Plan: Maintain IV fluids. 1 dose of amlodipine noted by cardiology. Most recent blood pressure in the systolic 140s. Avoid nephrotoxins. Discussed risk of worsening renal failure post-IV contrast exposure. I gave the patient a prescription to get BMP done on 12/05/2022 to make sure renal function stable. Follow-up outpatient in 1 week. Thank you for the consultation. I will continue to follow the patient with you during his hospital stay.
[2022-12-03 13:47] VITALS: RESP 17; TEMP 98
--- NOTE | 2022-12-03 13:49 | PN ---
PROGRESS NOTE SUBJECTIVE: I admitted this gentleman yesterday because of diabetes, CKD, creatinine of 1.8. He has hypertension, hyperlipidemia, severe aortic stenosis by noninvasive evaluation. I suggested that he should come into the hospital to be hydrated. The patient received 0.9 normal saline and a 0.9 saline at 75 mL/hour through the night. His diabetes is under fair control. He has significant exertional shortness of breath and chest tightness. He is going to have a transesophageal echo today along with coronary angiography. The patient is doing well. No chest pain. OBJECTIVE: VITAL SIGNS: Blood pressure is 150/70, pulse rate is 70 per minute, regular. HEENT: Unremarkable. Fundus was not examined by me. NECK: Supple. No JVD. I do not hear a carotid bruit. There is no thyromegaly. HEART: Reveals S1, S2 heard normally. Ejection systolic murmur at the base. Second heart sound is not well heard. LUNGS: Clear. ABDOMEN: Soft, nontender. LOWER EXTREMITIES: Reveal diminished pulses. CENTRAL NERVOUS SYSTEM: Grossly within normal limits. IMPRESSION: 1. Severe aortic stenosis. 2. Type 2 diabetes with chronic kidney disease. 3. Hypertension. 4. Hyperlipidemia. 5. Obesity. 6. Hypothyroidism. RECOMMENDATIONS: The patient will have a transesophageal echo today and coronary angiography. He has been brought in early yesterday for hydration. We will repeat BUN, creatinine. The patient will be hydrated following the procedure as well. Procedure will be performed today. MMODL / CLAUDIAN: [id number] / MTDD
[2022-12-03 17:07] VITALS: BP 177/83; PULSE 57
[2022-12-03 17:18] LABS: Glucose,Whole Blood 140 mg/dL (70-110)
--- NOTE | 2022-12-03 17:39 | CC ---
CARDIAC CATHETERIZATION REPORT DATE OF SERVICE: 12/03/2022. PROCEDURE PERFORMED: Coronary angiography. PERFORMED BY: Dr. Naomy Yu. Moderate conscious sedation time was 19 minutes. The patient was administered Versed. Oxygen saturation, hemodynamics, and EKG were monitored closely. CLINICAL INFORMATION: Mr. Eduardo Greenfield is a 72-year-old obese gentleman with a history of hypertension, hyperlipidemia, and diabetes with chronic kidney disease. He has also developed severe aortic stenosis. He was advised cardiac catheterization and transesophageal echo and brought in for the procedure. Transesophageal echo revealed severe aortic stenosis with a valve area at about 0.9, which is significant when you look at his body surface area. He was advised coronary angiography. PROCEDURE NOTE: Under local anesthesia and strict aseptic precautions, a 6-Portuguese introducer was placed in the right radial artery. Using JL3.5 and JR4 catheters, I performed coronary angiography. I could not cross the aortic valve. The sheath was taken out, and TR band was applied as per protocol. Saturation in the fingers of the right hand was 96%. The patient tolerated procedure well without complication. CARDIAC CATHETERIZATION FINDINGS: CORONARY ANGIOGRAPHY FINDINGS: 1. RIGHT CORONARY ARTERY: Dominant vessel. No significant disease. Supplies a sizable amount of myocardium. Distally bifurcates into large PDA and PLV, no significant disease. RCA is dominant. 2. LEFT MAIN CORONARY ARTERY: Short, patent vessel, free of significant disease. Bifurcates into LAD and circumflex. 3. LEFT ANTERIOR DESCENDING CORONARY ARTERY: Good-caliber vessel, extends along the anterior wall, gives off septal and diagonal branches, runs all the way to the apex. LAD has only minor irregularities. No significant disease. 4. LEFT POSTERIOR CIRCUMFLEX CORONARY ARTERY: There is a high obtuse marginal, almost looks like a ramus, and also a secondary branch from it, and then circumflex continues in the AV groove and distally has 2 small branches. There are only minor irregularities in the circumflex system. No significant disease is noted. FINAL IMPRESSION: This patient has a right-dominant system, minor irregularities, no significant disease. Basically, he has no significant obstructive coronary artery disease. He has severe aortic stenosis by transesophageal echo and transthoracic echo. RECOMMENDATIONS: I am recommending elective transcutaneous aortic valve replacement. Discussed my thoughts in detail with the patient and his . MMODL / IJN: [id number] /
--- NOTE | 2022-12-03 23:31 | DS ---
DISCHARGE SUMMARY DIAGNOSES: 1. Severe aortic stenosis. 2. Hypertension. 3. Hypercholesterolemia. 4. Diabetes with chronic kidney disease. HOSPITAL COURSE: Mr. Greenfield was admitted to the hospital yesterday evening for hydration. He has severe aortic stenosis, and he was advised a transesophageal echo and coronary angiography. In preparation for this, he was advised to come in a day earlier for hydration. His creatinine runs between 1.8 and 2.0. He was adequately hydrated yesterday, and I performed coronary angiography with the least amount of contrast and also had a transesophageal echo. He has no significant obstructive CAD. He has a right-dominant system. He has severe aortic stenosis. I am referring him to the Structural Heart Team for evaluation for percutaneous aortic valve implant. The patient was hydrated till about 6 or 6:30 p.m., this evening, and he will be discharged, and I will see him in the office next week. Advised to orally hydrate himself for at least another 24 hours. Same medical regimen plus amlodipine 5 mg b.i.d. He has an appointment to be seen in the [facility]. At the time of discharge, he was asymptomatic, ambulating without symptoms. MMODL / IJN: [id number] /
--- NOTE | 2022-12-04 03:10 | ECHOT ---
TRANSESOPHAGEAL ECHOCARDIOGRAM INDICATION: Aortic stenosis. PROCEDURE NOTE: After obtaining informed consent, transesophageal echocardiogram was performed in left lateral position using an Omniplane probe. Local and IV sedation were obtained using Versed and fentanyl. The patient tolerated the procedure well without any obvious immediate complications. The patient received moderate conscious sedation. Total sedation time was 10 minutes. FINDINGS: 1. Aortic valve: Aortic valve is a 3-leaflet valve that appears calcified and shows severe restriction in leaflet mobility. By planimetry, the valve area is around 0.921 sq cm. This is consistent with severe aortic stenosis. There is no aortic regurgitation. Mitral valve appears anatomically normal. There is mild central mitral regurgitation noted. Tricuspid valve shows mild tricuspid regurgitation. Left atrium is mildly enlarged. Right atrium and right ventricle seem within normal limits. 2. Left ventricle has normal size and systolic function. 3. Interatrial septum: there is no evidence of laiv-zj-offnq shunt by color-flow Doppler or dlkjl-eo-wlns shunt by agitated saline contrast study. 4. Aortic root measures within normal limits. Ascending aorta measures at 3.7 cm consistent with mild aneurysm. CONCLUSIONS: 1. Severe aortic stenosis involving a tricuspid aortic valve that is heavily calcified and shows restricted leaflet mobility. By planimetry, the valve area is between 0.9 and 1 square cm. 2. Normal LV systolic function. PLAN: The patient will undergo cardiac catheterization and probably be referred for aortic valve replacement. MMODL / IJN: [id number] /
[2022-12-04] MEDS ORDERED: HEPARIN SODIUM,PORCINE 2,500 UNIT in SODIUM CHLORIDE 0.9% 250 ML IRRIGATION PRN (07:00)
[2022-12-04] MEDS ORDERED: HEPARIN SODIUM,PORCINE 10,000 UNIT in SODIUM CHLORIDE 0.9% 1,000 ML IRRIGATION PRN (07:00)
[2022-12-04] MEDS ORDERED: amLODIPine 5 MG TAB PO SCH (09:00)
== END 2022-12-03 18:31 | disposition home or self-care (01) ==
LOC: 6NMEDSUR 16:08
PROVIDERS: ADMIT Internal Medicine Interventional Cardiology; ATTEND Internal Medicine Interventional Cardiology
DX: I35.0 Nonrheumatic aortic (valve) stenosis (principal); N17.9 Acute kidney failure, unspecified; I12.9 Hypertensive chronic kidney disease with stage 1 through stage 4 chronic kidney disease, or unspecified chronic kidney disease; E11.22 Type 2 diabetes mellitus with diabetic chronic kidney disease; E66.9 Obesity, unspecified; E03.9 Hypothyroidism, unspecified; N18.31 Chronic kidney disease, stage 3a; E78.00 Pure hypercholesterolemia, unspecified; E11.42 Type 2 diabetes mellitus with diabetic polyneuropathy; I08.1 Rheumatic disorders of both mitral and tricuspid valves; H35.30 Unspecified macular degeneration; Z98.42 Cataract extraction status, left eye; Z98.41 Cataract extraction status, right eye; Z96.1 Presence of intraocular lens; Z96.641 Presence of right artificial hip joint; Z80.9 Family history of malignant neoplasm, unspecified; Z79.82 Long term (current) use of aspirin; Z79.899 Other long term (current) drug therapy; Z79.4 Long term (current) use of insulin; Z79.890 Hormone replacement therapy; Z68.42 Body mass index [BMI] 45.0-49.9, adult
CPT/HCPCS: 80048; 85027; 93312; 93325; 93454; 94760

== ENCOUNTER → 2022-12-18 | Outpatient (CLI) | payer MEDICARE, OTHER ==
[2022-12-18 07:48] VITALS: BP 172/78; PULSE 66; RESP 16
[2022-12-18 07:52] LABS: Basophils % (A) 1 %; Eosinophils # (A) 0.2 k/uL (0-0.7); Eosinophils % (A) 3 %; HCT 35.2 % (39.0-53.0); HGB 11.2 gm/dL (13.0-17.5); Lymphocytes % (A) 15 %; MCH 31.3 pg (25.0-35.0); MCHC 31.8 g/dL (31.0-37.0); MCV 98.4 fL (80.0-100.0); Mean Platelet Volume 8.7; Monocytes # (A) 0.4 k/uL (0-1.0); Monocytes % (A) 6 %; Neutrophils # (A) 4.7 k/uL (1.3-7.7); Neutrophils % (A) 74 %; Platelet Count 197 k/uL (150-450); RBC 3.58 m/uL (4.30-5.90); RDW 14.5 % (11.5-15.5); WBC 6.4 k/uL (3.8-10.6)
[2022-12-18 08:02] LABS: ALT 24 U/L (4-49); AST 27 U/L (17-59); African American GFR (CKD) 41 (>60 ml/min/1.73 sqM); Albumin 3.5 g/dL (3.5-5.0); Albumin/Globulin Ratio 1.1; Alkaline Phosphatase 105 U/L (38-126); Anion Gap 9 mmol/L; Blood Urea Nitrogen 26 mg/dL (9-20); Calcium 8.2 mg/dL (8.4-10.2); Carbon Dioxide 26 mmol/L (22-30); Chloride 102 mmol/L (98-107); Globulin 3.1 g/dL; Glucose 171 mg/dL (74-99); Magnesium 1.8 mg/dL (1.6-2.3); Non-African American GFR(CKD) 35 (>60 ml/min/1.73 sqM); Potassium 4.2 mmol/L (3.5-5.1); Prothrombin Time 10.7 sec (9.0-12.0); Sodium 137 mmol/L (137-145); Total Bilirubin 0.5 mg/dL (0.2-1.3); Total Protein 6.6 g/dL (6.3-8.2)
[2022-12-18 08:06] LABS: Appearance,Urine Clear (Clear); Bacteria,Urine Rare /hpf; Bilirubin,Urine Negative (Negative); Blood,Urine Negative (Negative); Color,Urine Light Yellow; Glucose,Urine (UA) Negative (Negative); Ketones,Urine Negative (Negative); Leukocyte Esterase,Urine Negative (Negative); Nitrite,Urine Negative (Negative); PH, Urine 6.5 (5.0-8.0); Protein,Urine 2+ (Negative); RBC,Urine 1 /hpf (0-5); Urobilinogen,Urine <2.0 mg/dL (<2.0); WBC,Urine <1 /hpf (0-5)
[2022-12-18 11:17] LABS: Hepatitis A Antibody IgM Nonreactive (Nonreactive); Hepatitis B Core IgM Nonreactive (Nonreactive); Hepatitis B Surface Antigen Nonreactive (Nonreactive); Hepatitis C IgG Antibody Nonreactive (Nonreactive)
--- NOTE | 2022-12-18 14:20 | US ---
EXAMINATION TYPE: US carotid duplex BILAT DATE OF EXAM: 12/18/2022 COMPARISON: NONE CLINICAL INDICATION: Male, 72 years old with history of TAVR workup; TECHNIQUE: Carotid duplex ultrasound examination. Indirect Doppler criteria was utilized. FINDINGS: EXAM MEASUREMENTS: RIGHT: Peak Systolic Velocity (PSV) cm/sec ----- Right CCA: 98.8 ----- Right ICA: 97.9 ----- Right ECA: 88.8 ICA/CCA ratio: 1.0 RIGHT: End Diastole cm/sec ----- Right CCA: 14.5 ----- Right ICA: 28.1 ----- Right ECA: 0 LEFT: Peak Systolic Velocity (PSV) cm/sec ----- Left CCA: 101 ----- Left ICA: 99.7 ----- Left ECA: 77.9 ICA/CCA ratio: 1.0 LEFT: End Diastole cm/sec ----- Left CCA: 19.9 ----- Left ICA: 26.3 ----- Left ECA: 0 VERTEBRALS (direction of flow): Right Vertebral: Antegrade Left Vertebral: Antegrade Rhythm: Normal [facility] NOTES: No significant stenosis seen IMPRESSION: Less than 50% stenosis of the bilateral carotid bifurcations. Criteria for Assigning % of Stenosis / Diameter reduction (Estimation based on the indirect measurements of the internal carotid artery velocities (ICA PSV). 1. Normal (no stenosis)=ICA PSV < 125 cm/s: ratio < 2.0: ICA EDV<40 cm/s. 2. Less than 50% stenosis=ICA PSV < 125 cm/s: ratio < 2.0: ICA EDV<40 cm/s. 3. 50 to 69% stenosis=ICA PSV of 125 to 230 cm/s: ration 2.0 ? 4.0: ICA EDV 40-100 cm/s. 4. Greater than 70% stenosis to near occlusion= ICA PSV > 230 cm/s: ratio > 4.0: ICA EDV > 100 cm/s. 5. Near occlusion= ICA PSV velocities may be low or undetectable: variable ratio and ICA EDV. 6. Total occlusion=unable to detect flow.
[2022-12-18 16:23] LABS: Chol/HDL Ratio 2.11 Ratio; LDL Cholesterol,Calculated 26.5 mg/dL (0.0-131.0)
--- NOTE | 2022-12-18 22:13 | CT ---
EXAMINATION TYPE: CT TAVR Planning DATE OF EXAM: 12/18/2022 HISTORY: 72-year-old male TAVR planning. Non-rheumatic aortic valve insufficiency. CT DLP: 3526.60 mGycm Automated Exposure Control for Dose Reduction was Utilized. CONTRAST: CT scan of the chest, abdomen and pelvis is performed with IV Contrast, patient injected with 125 mL of Isovue 370. COMPARISON: None TECHNIQUE: Helical imaging obtained through the chest, abdomen and pelvis during arterial phase fredy rasta administration of radiographic contrast intravenously. FINDINGS: See report from [facility] regarding preprocedural planning CHEST: Lower Neck and Thyroid: There is marked bilateral lingual and palatine tonsillar hypertrophy. Signif icant circumferential narrowing of the hypopharynx, axial image 14. Direct visualization is advised t o assess for any abnormal mucosal space lesions. Lungs: There is some dependent atelectasis. Mild diffuse bronchial wall thickening suggesting bronchi tis or asthma. Some strandy atelectasis or scarring at the lung bases. No pleural effusion. Central Airway: No significant findings Pleura: No significant findings Pulmonary Arteries: Borderline caliber measuring up to 2.5 cm may reflect underlying pulmonary hypert ension. Heart and Pericardium: Moderate aortic valvular calcifications. Heart overall normal size without per icardial effusion. Borderline aneurysmal ascending aorta 4.0 cm. Bovine configuration to the aortic arch. Lymph Nodes: Scattered nonenlarged mediastinal lymph nodes. No thoracic lymphadenopathy by CT size cr iteria. Mediastinum & Esophagus: No significant findings ABDOMEN/PELVIS: Please note arterial phase of the imaging limits detailed evaluation of the solid abdominal organs. Liver: No significant abnormality. Spleen: No significant findings Kidneys: A couple benign renal cortical cysts measuring up to 2.0 cm on the left and 1.1 cm on the ri ght. Adrenal Glands: No significant findings Pancreas: No significant findings Gallbladder: No significant findings Bowel and Mesentery: Small 2.8 cm diverticulum of the third portion of the duodenum projecting up int o the pancreatic head region. No dilated small bowel, free fluid, or free air. Mild overall stool bur den. Redundant sigmoid colon. No pericolonic inflammatory change. Lymph Nodes: No significant findings Urinary Bladder: No significant findings Pelvic Organs: Prostatomegaly of 5.3 cm wide. Multiple pelvic phleboliths. Other: Right apical arthroplasty. [facility] within the lower thoracic spine. Hypertrophic facet arthropath y lower lumbar spine. Moderate degenerative disc disease L4-L5. Other Lines/Tubes/Devices/Hardware: None IMPRESSION: 1. Prominent bilateral palatine and lingual tonsillar hypertrophy. There seems to be significant circ umferential narrowing at the level of the hypopharynx as well. Recommend direct visualization to excl ude any worrisome lesion of the cervical mucosal space here. 2. Possible underlying pulmonary arterial hypertension. Mild aneurysm ascending aorta 4.0 cm. Prostat omegaly at 5.3 cm.
== END | disposition home or self-care (01) ==
LOC: LABWHC1 06:48
PROVIDERS: ATTEND Thoracic Surgery (Cardiothoracic Vascular Surgery)
DX: Z01.818 Encounter for other preprocedural examination (principal); I35.1 Nonrheumatic aortic (valve) insufficiency; I65.23 Occlusion and stenosis of bilateral carotid arteries; J35.1 Hypertrophy of tonsils; E87.8 Other disorders of electrolyte and fluid balance, not elsewhere classified; R58 Hemorrhage, not elsewhere classified; E07.9 Disorder of thyroid, unspecified; R35.0 Frequency of micturition; Z79.01 Long term (current) use of anticoagulants; I35.0 Nonrheumatic aortic (valve) stenosis; E11.9 Type 2 diabetes mellitus without complications; N28.9 Disorder of kidney and ureter, unspecified; E78.5 Hyperlipidemia, unspecified; Z79.899 Other long term (current) drug therapy
CPT/HCPCS: 94150; 83880; 80061; 80053; 80074; 84443; 83735; 85025; 85610; 85730; 81001; 87086; 83036; 93880; 71275; 74174; 36415; Q9967

== ENCOUNTER → 2023-01-22 | Outpatient (CLI) | payer MEDICARE, OTHER ==
[2023-01-22 12:02] LABS: Partial Thromboplastin Time 23.5 sec (22.0-30.0); Prothrombin Time 10.6 sec (9.0-12.0)
[2023-01-22 16:33] LABS: ALT 17 U/L (10-49); AST 20 U/L (14-35); Albumin 3.8 d/dL (3.8-4.9); Albumin/Globulin Ratio 1.46 Ratio (1.60-3.17); Alkaline Phosphatase 86 U/L (41-126); BUN/Creat Ratio 15.95 Ratio (12.00-20.00); Blood Urea Nitrogen 31.9 mg/dL (9.0-27.0); Calcium 9.1 mg/dL (8.7-10.3); Carbon Dioxide 23.5 mmol/L (21.6-31.8); Chloride 108 mmol/L (96-109); Globulin 2.6 d/dL (1.6-3.3); Glucose 162 mg/dL (70-110); Potassium 4.4 mmol/L (3.5-5.5); Sodium 141 mmol/L (135-145); Total Bilirubin 0.3 mg/dL (0.3-1.2); Total Protein 6.4 d/dL (6.2-8.2)
[2023-01-22 16:34] LABS: HCT 36.2 % (39.6-50.0); HGB 11.5 d/dL (12.0-15.0); MCH 31.6 pg (27.0-32.0); MCHC 31.8 d/dL (32.0-37.0); MCV 99.5 FL (80.0-97.0); Mean Platelet Volume 10.5 FL (9.5-12.2); NRBC Per 100 WBC 0 X 10*3/uL (0.00-0.01); Platelet Count 199 X 10*3/uL (140-440); RBC 3.64 X 10*6/uL (4.40-5.60); RDW 14.2 % (11.5-14.5); WBC 8.43 X 10*3/uL (4.50-10.00)
== END | disposition home or self-care (01) ==
LOC: LABWHC1 11:14
PROVIDERS: ATTEND Thoracic Surgery (Cardiothoracic Vascular Surgery)
DX: I35.0 Nonrheumatic aortic (valve) stenosis (principal)
CPT/HCPCS: 36415; 80053; 85027; 85610; 85730

== ENCOUNTER 2023-01-28 05:40 | Inpatient (IN) | payer MEDICARE, OTHER ==
[2023-01-28] MEDS ORDERED: LACTATED RINGERS 1,000 ML IV SCH ×2 (06:00→09:38)
[2023-01-28] MEDS ORDERED: TRANEXAMIC ACID 2,000 MG in SODIUM CHLORIDE 0.9% 80 ML IV PRN (06:00)
[2023-01-28] MEDS ORDERED: METOPROLOL TARTRATE 25 MG TAB PO ONE (06:00)
[2023-01-28] MEDS ORDERED: NITROGLYCERIN-D5W PMX 25 MG/250 ML BTL IV PRN (06:00)
[2023-01-28] MEDS ORDERED: ceFAZolin 3 GM in SODIUM CHLORIDE 0.9% 100 ML IVPB ONE (06:00)
[2023-01-28] MEDS ORDERED: PROTAMINE SULFATE 250 MG in EMPTY BAG 1 BAG IV PRN (06:00)
[2023-01-28] MEDS ORDERED: CLOPIDOGREL 75 MG TAB PO ONE (06:00)
[2023-01-28] MEDS ORDERED: ATORVASTATIN 10 MG TAB PO ONE (06:00)
[2023-01-28] MEDS ORDERED: SODIUM CHLORIDE 0.9% 500 ML 500 ML INTRAARTER PRN (06:00)
[2023-01-28] MEDS ORDERED: INSULIN REGULAR 100 UNIT in SODIUM CHLORIDE 0.9% 100 ML IV PRN (06:00)
[2023-01-28] MEDS ORDERED: CLEVIDIPINE BUTYRATE 25 MG in EMPTY BAG 1 BAG IV PRN (06:00)
[2023-01-28] MEDS ORDERED: ASPIRIN 325 MG TAB PO ONE (06:00)
[2023-01-28] MEDS ORDERED: ELECTROLYTE-A SOLUTION 1,000 ML with POTASSIUM CHLORIDE 100 MEQ, MAGNESIUM SULFATE 16 M... IV PRN ×5 (06:00)
[2023-01-28 06:37] LABS: Glucose,Whole Blood 141 mg/dL (70-110)
[2023-01-28] MEDS ORDERED: SODIUM CHLORIDE 0.9% 1,000 ML IV ONE ×2 (06:40→09:26)
[2023-01-28] MEDS ORDERED: SUCCINYLCHOLINE CHLORIDE 200 MG/10 ML VIAL IV ONE (07:41)
[2023-01-28] MEDS ORDERED: PHENYLEPHRINE 10 MG/ML VIAL ONE (07:41)
[2023-01-28] MEDS ORDERED: LIDOCAINE 2% INJ 20 MG/ML (2 ML VIAL) ONE (07:41)
[2023-01-28] MEDS ORDERED: hydrALAZINE HCL 20 MG/ML 1 ML VIAL ONE (07:41)
[2023-01-28] MEDS ORDERED: fentaNYL (PF) 50 MCG/ML 2 ML AMP ONE (07:41)
[2023-01-28] MEDS ORDERED: PROTAMINE SULFATE 10 MG/ML 5 ML VIAL IV ONE (07:41)
[2023-01-28] MEDS ORDERED: PROPOFOL 10 MG/ML 50 ML VIAL IV ONE (07:41)
[2023-01-28] MEDS ORDERED: NEOSTIGMINE 1 MG/ML 10 ML VIAL ONE (07:41)
[2023-01-28] MEDS ORDERED: HEPARIN SODIUM,PORCINE 10,000 UNIT/ML 1 ML VIAL ONE (07:41)
[2023-01-28] MEDS ORDERED: ROCURONIUM 10 MG/ML (5 ML VIAL) IV ONE (07:41)
[2023-01-28] MEDS ORDERED: GLYCOPYRROLATE 0.2 MG/ML 2 ML VIAL ONE (07:41)
[2023-01-28] MEDS ORDERED: MIDAZOLAM 2 MG/2 ML VIAL ONE (07:41)
[2023-01-28] MEDS ORDERED: IOPAMIDOL-370 100ML BTL INJ ONE ×4 (09:12)
--- NOTE | 2023-01-28 09:26 | P.OP ---
Description of Procedure: Transcatheter Aoritc Valve Replacement Operative report PROCEDURE PERFORMED: 1. Percutaneous Aortic Valve Implantation using a 34 mm Evolut-FX. 2. Transesophageal echocardiography (performed by anesthesia) 3. Ultrasound guided access and repair of left femoral artery access site by Perclose closure device. 4. Placement of temporary pacemaker wire. 5. Aortic root angiography INDICATIONS: 1. 73 year-old with a history of severe symptomatic aortic valve stenosis. PERFORMING PHYSICIANS: 1. Venancio Randall, Interventional Cardiology 2. Roberto Ulloa MD, Cardiothoracic Surgeon. SEDATION: General anesthesia provided by anesthesia, see separate note APPROACH: Left femoral artery via percutaneous approach PROCEDURE DESCRIPTION: The patient was discussed at valve clinic with multidisciplinary approach with cardiothoracic surgeon as well as underground foreman and thought better treated with TAVR. Risks, benefits, and alternatives of the procedure had been explained to the patient who understood the risks and agreed to proceed. After consents were obtained, patient was brought to the transcatheter aortic valve implantation r oom in the cardiac medical lab assistant and general anesthesia was provided by the anesthesiologist (see separate report). Once full body sterile prep was performed, right subclavian venous access was obtained and a temporary pacemaker was screwed in, performed by cardiothoracic surgery. Pacing threshholds were checked and deemed appropriate. Next the right femoral artery was accessed using a modified Seldinger technique, ultrasound guidance and micropuncture technique. A 6 Khmer Rabi sheath was placed in the right femoral artery. Next, a 6-Khmer pigtail catheter was advanced into the aorta and positioned in the aortic root, aortic root angiography was performed to determine optimal deployment angle. The left femoral artery was accessed using modified Seldinger technique, micropuncture technique and under direct ultrasound guidance. Femoral angiogram was done showing access in the common femoral artery and a 6Fr sheath was placed. Next preclose technique was performed using 2 Percloses. Next a 0.035 Lunderquist wire was placed in the Aorta via a pigtail catheter. Over that the arteriotomy was serially dilated and a 18 Fr [place] sheath was placed. Next a 6F- AL1 catheter was advanced over a wire to the aortic root. A straight wire was advanced through the catheter and used to cross the severely stenotic valve. The AL1 was then exchanged for a 6Fr pigtail catheter and pressure measurements were obtained. The 0.035 Lunderquist wire was then positioned in the apex. Next a 34 mm Evolut-FX was advanced. The valve was then positioned across the aortic valve and confirmed with aortic root angiography. The valve was then deployed in proper position using slow deployment and with rapid pacing in conjuncture with aortic root angiography and SHEILA. The delivery system was withdrawn back into the arch and an aortic root injection in conjunction with SHEILA demonstrated a satisfactory result. There was mild para valvular leak. There was no evidence of any other significant abnormalities. The preclose Perclose was then deployed in the left femoral artery however one of the percloses broke and therefore additional 8Fr Angioseal was deployed with hemostasis achieved. A 6Fr Rim see ter was advanced to the bifurcation via the right femoral access. Femoral angiogram was performed that showed no contrast leak. The right femoral angiogram demonstrated an arteriotomy in the common femoral artery and this was repaired using a 6F angioseal device with complete hemostasis. The temporary venous pacemaker was sutured in place. The patient was then transported to the ICU in hemodynamically stable condition, requiring no pressor support. COMPLICATIONS: None CONCLUSION: 1. Implantaion of 34 mm Evolut-Fx transcatheter aortic valve via left femoral approach under SHEILA and fluoro guidance with mild judd-valvular aortic regurgitation. 2. Placement of temporary pacemaker wire 3. Aortic Root Aortogram. RECOMMENDATIONS: The patient will be monitored in the ICU for hemodynamic and electrical stability. Patient will be on aspirin
[2023-01-28] MEDS ORDERED: DEXTROSE 50% SYRINGE 50 ML IVP PRN ×2 (09:38)
[2023-01-28] MEDS ORDERED: CALCIUM GLUCONATE IN NACL 2 GM in SALINE 1 100ML.BAG IVPB PRN (09:38)
[2023-01-28] MEDS ORDERED: Magnesium Replacement Protocol 1 EACH MISC MISCELLANE PRN (09:38)
[2023-01-28] MEDS ORDERED: IPRATROPIUM-ALBUTEROL 3 ML NEB INHALATION PRN (09:38)
[2023-01-28] MEDS ORDERED: ACETAMINOPHEN TAB 325 MG TAB PO PRN (09:38)
[2023-01-28] MEDS ORDERED: Potassium Replacement Protocol 1 EACH MISC MISCELLANE PRN (09:38)
--- NOTE | 2023-01-28 09:38 | P.ANPRN ---
Procedure Note - Anesthesia - SHEILA Intraop Pre Bypass SHEILA Intraop - Anesthesia Indication: TAVR Date of Procedure: 01/28/23 Pre-operative Diagnosis: aortic stenosis Post-operative Diagnosis: same Surgeon: Roberto Ulloa Left Ventricle: wnl Ejection Fraction: Normal Regional Wall Motion Abnormalities: None Left Ventricle Hypertrophy: No R. Ventricle Function: Normal Aortic Valve: LVOT 2.2. Tricuspid. 0.8cm2 and 0.9cm2. peak pressure 46 and mean 29. EF wnl Anatomy: Trileaflet Aortic Stenosis: Severe Aortic Regurgitation: None Mitral Stenosis: None Mitral Regurgitation: Trace Tricuspid Stenosis: None Tricuspid Regurgitation: None Pulmonic Stenosis: None Pulmonic Regurgitation: None R. Atrial Dilation: No R. Atrial PFO: No L. Atrial Dilation: No Aortic Dissection: No Aortic Calcification: None Plural Effusion: None
--- NOTE | 2023-01-28 09:40 | P.ANPRN ---
Procedure Note - Anesthesia - SHEILA Intraop Post Bypass SHEILA Intraop Post Bypass Procedure Performed: TAVR Left Ventricle: wnl Ejection Fraction: Normal Regional Wall Motion Abnormalities: None R. Ventricle Function: Normal Aortic Valve: prostethic valve in place. opens well. small perivalvular leak at position where natural right and left coronary commisure would be. peak 15, mean 10 Mitral Valve: Unchanged Tricuspid: Unchanged Pulmonic: Unchanged Aortic Dissection: No
--- NOTE | 2023-01-28 09:40 | P.OP ---
Date of Procedure: 01/28/23 Preoperative Diagnosis: Pneumatic calcific tricuspid aortic stenosis Postoperative Diagnosis: Same Procedure(s) Performed: Percutaneous transfemoral placement of transcatheter aortic valve (Medtronic evolute FX 34 mm) Implants: Medtronic evolute FX 34 mm transcatheter aortic valve Anesthesia: GETA Surgeon: Roberto Ulloa (Cardiovascular surgeon) Inside Polisher #1: Venancio Randall ([facility]) Estimated Blood Loss (ml): 20 Pathology: none sent Condition: stable Disposition: ICU Indications for Procedure: 73-year-old male with worsening exertional dyspnea over the past year. Found to have severe aortic valvular stenosis. Recommended undergo transcatheter aortic valve replacement. Operative Findings: See below Description of Procedure: Patient was brought to the cardiac catheterization laboratory and placed supine on the table. Bilateral groins and chest were sterilely prepped and draped. Bilateral femoral access was obtained under ultrasound guidance. On the left a 7-Peruvian sheath was placed in the common femoral artery. On the right a 6- Peruvian long sheath was placed and advanced into the descending thoracic aorta. Right subclavian vein was punctured and a screw-in ventricular lead was advanced into the right ventricular apex. Thresholds were below 1 ball. This was secured at the skin with 2-0 silk suture ligatures. Pigtail catheter was advanced from the right femoral artery into the noncoronary sinus of Valsalva. A 7-Peruvian sheath was removed over a wire on the left and 2 Perclose devices were placed and the 9-Peruvian sheath was placed. Patient was systemically heparinized and ACTs maintained greater than 250. A 9-Peruvian sheath was exchanged for an 18-Peruvian sheath over a stiff wire. The valve was crossed and the left femoral artery and pigtail catheter positioned in the apex of the ventricle. Transvalvular gradients were measured. Lunderquist wire was placed in the apex of the ventricle. 34 Medtronic evolute FX valve had been loaded on the back table and the deployment system was brought up onto the field. 18- Peruvian sheath was exchanged over the Lunderquist wire for the deployment system of the TAVR valve. It was advanced through the ileal aortic system around the arch and across the aortic valve under fluoroscopic guidance. Valve was deployed under rapid ventricular pacing good deployment levels. Deployment system was drawn back into the descending thoracic aorta. SHEILA demonstrated excellent deployment level with good expansion and no evidence of paravalvular leak. Heparin was reversed with protamine and the valve delivery system removed. One Perclose device failed the other was deployed and a Angio-Seal was added for secured hemostasis in the left groin. Completion angiography was performed and the right femoral was closed by Dr. Randall. Patient was transferred to ICU in stable condition
[2023-01-28 09:42] LABS: Glucose,Whole Blood 146 mg/dL (70-110)
[2023-01-28 10:29] LABS: Basophils % (A) 0 %; Eosinophils # (A) 0.1 k/uL (0-0.7); Eosinophils % (A) 2 %; HCT 32.6 % (39.0-53.0); HGB 10.5 gm/dL (13.0-17.5); Lymphocytes % (A) 15 %; MCH 31.5 pg (25.0-35.0); MCHC 32.2 g/dL (31.0-37.0); Mean Platelet Volume 8.8; Monocytes # (A) 0.4 k/uL (0-1.0); Monocytes % (A) 6 %; Neutrophils # (A) 5.2 k/uL (1.3-7.7); Neutrophils % (A) 75 %; Platelet Count 171 k/uL (150-450); RBC 3.33 m/uL (4.30-5.90); RDW 14.3 % (11.5-15.5); WBC 6.9 k/uL (3.8-10.6)
--- NOTE | 2023-01-28 10:34 | XR ---
EXAMINATION TYPE: XR chest 1V portable DATE OF EXAM: 01/28/2023 10:10 AM COMPARISON: CT 12/18/2022 TECHNIQUE: XR chest 1V portable Frontal view of the chest. CLINICAL INDICATION:Male, 73 years old with history of Post Operative Cardiac Surgery; FINDINGS: Lungs/Pleura: There is no evidence of pleural effusion, focal consolidation, or pneumothorax. Pulmonary vascularity: Unremarkable. Heart/mediastinum: Cardiomediastinal silhouette is enlarged and stable. Post aortic valve repair ramesh nges. Musculoskeletal: No acute osseous pathology. IMPRESSION: Post aortic repair changes, No acute cardiopulmonary disease/process.
[2023-01-28 10:37] LABS: INR 1.1 (<1.2); Partial Thromboplastin Time 22.8 sec (22.0-30.0); Prothrombin Time 11.2 sec (9.0-12.0)
[2023-01-28 10:47] LABS: Ionized Calcium 4.8 mg/dL (4.5-5.3)
[2023-01-28 10:57] LABS: ALT 17 U/L (4-49); AST 26 U/L (17-59); African American GFR (CKD) 38 (>60 ml/min/1.73 sqM); Albumin 2.9 g/dL (3.5-5.0); Alkaline Phosphatase 78 U/L (38-126); Anion Gap 8 mmol/L; Blood Urea Nitrogen 32 mg/dL (9-20); Calcium 7.8 mg/dL (8.4-10.2); Carbon Dioxide 22 mmol/L (22-30); Chloride 108 mmol/L (98-107); Glucose 154 mg/dL (74-99); Magnesium 1.8 mg/dL (1.6-2.3); Non-African American GFR(CKD) 33 (>60 ml/min/1.73 sqM); Potassium 4.1 mmol/L (3.5-5.1); Sodium 138 mmol/L (137-145); Total Bilirubin 0.3 mg/dL (0.2-1.3); Total Protein 5.7 g/dL (6.3-8.2)
[2023-01-28 11:14] LABS: Glucose,Whole Blood 177 mg/dL (70-110)
[2023-01-28] MEDS ORDERED: MAGNESIUM SULFATE-D5W PMX 1 GM in DEXTROSE/WATER 1 100ML.BAG IVPB ONE (12:00)
[2023-01-28] MEDS: INSULIN ASPART (NovoLOG) 100 UNIT/ML VIAL SQ SCH ×5 (12:24→20:38)
[2023-01-28] MEDS: hydrALAZINE HCL 20 MG/ML 1 ML VIAL IVP PRN ×2 (13:55→19:28)
[2023-01-28 14:07] VITALS: BMI 45.4
[2023-01-28] MEDS: ceFAZolin 3 GM in SODIUM CHLORIDE 0.9% 100 ML IVPB SCH ×2 (16:01→23:32)
[2023-01-28 16:36] LABS: Glucose,Whole Blood 142 mg/dL (70-110)
[2023-01-28] MEDS ORDERED: BENZOCAINE/MENTHOL LOZENG 1 EACH LOZENGE MUCOUS MEM PRN (16:37)
[2023-01-28 20:26] LABS: Glucose,Whole Blood 154 mg/dL (70-110)
[2023-01-28] MEDS ORDERED: TAMSULOSIN 0.4 MG CAP.ER.24H PO SCH (21:00)
[2023-01-28] MEDS ORDERED: INSULIN DETEMIR (LEVEMIR) 100 UNIT/ML SYR SQ SCH (21:00)
[2023-01-28] MEDS: HEPARIN SODIUM,PORCINE/PF 5,000 UNIT/0.5 ML SYRINGE SQ SCH (23:32)
[2023-01-29] MEDS: ONDANSETRON 4 MG/2 ML VIAL IVP PRN ×2 (00:43→04:37)
[2023-01-29 04:37] LABS: Basophils % (A) 0 %; Eosinophils % (A) 0 %; HCT 34.8 % (39.0-53.0); HGB 11.4 gm/dL (13.0-17.5); Lymphocytes # (A) 0.9 k/uL (1.0-4.8); Lymphocytes % (A) 7 %; MCH 32.4 pg (25.0-35.0); MCHC 32.7 g/dL (31.0-37.0); MCV 99.2 fL (80.0-100.0); Mean Platelet Volume 8.6; Monocytes # (A) 0.6 k/uL (0-1.0); Monocytes % (A) 5 %; Neutrophils # (A) 10.4 k/uL (1.3-7.7); Neutrophils % (A) 87 %; Platelet Count 183 k/uL (150-450); RBC 3.51 m/uL (4.30-5.90); RDW 14.3 % (11.5-15.5)
[2023-01-29 05:03] LABS: Ionized Calcium 4.9 mg/dL (4.5-5.3)
[2023-01-29 05:09] LABS: ALT 16 U/L (4-49); AST 30 U/L (17-59); African American GFR (CKD) 37 (>60 ml/min/1.73 sqM); Albumin 3.3 g/dL (3.5-5.0); Alkaline Phosphatase 80 U/L (38-126); Anion Gap 8 mmol/L; Blood Urea Nitrogen 29 mg/dL (9-20); Calcium 8.5 mg/dL (8.4-10.2); Carbon Dioxide 24 mmol/L (22-30); Chloride 106 mmol/L (98-107); Glucose 127 mg/dL (74-99); Magnesium 2.1 mg/dL (1.6-2.3); Non-African American GFR(CKD) 32 (>60 ml/min/1.73 sqM); Potassium 3.8 mmol/L (3.5-5.1); Sodium 138 mmol/L (137-145); Total Bilirubin 0.3 mg/dL (0.2-1.3); Total Protein 6.2 g/dL (6.3-8.2)
[2023-01-29] MEDS ORDERED: POTASSIUM CHLORIDE ER 20 MEQ TAB.ER PO SCH (06:00)
[2023-01-29] MEDS ORDERED: LEVOTHYROXINE 100 MCG TAB PO SCH (06:30)
[2023-01-29 06:35] LABS: Glucose,Whole Blood 188 mg/dL (70-110)
[2023-01-29] MEDS: INSULIN ASPART (NovoLOG) 100 UNIT/ML VIAL SQ SCH ×4 (06:45→12:05)
[2023-01-29] MEDS ORDERED: PANTOPRAZOLE 40 MG TABLET PO SCH (07:30)
--- NOTE | 2023-01-29 07:35 | XR ---
EXAMINATION TYPE: XR chest 1V portable DATE OF EXAM: 01/29/2023 Comparison: 01/28/2023 Clinical History: 73-year-old male Post Operative Cardiac Surgery Findings: Endovascular aortic valve replacement. Right ventricular transvenous pacer lead noted. Heart mildly e nlarged. Interstitial prominence is improving. There may be trace residual effusions and some minimal anterior retrocardiac atelectasis remaining. Impression: Mild cardiomegaly. Interstitial prominence is improving. There may be residual trace effusions and so me patchy postoperative atelectasis in the retrocardiac region.
[2023-01-29] MEDS: HEPARIN SODIUM,PORCINE/PF 5,000 UNIT/0.5 ML SYRINGE SQ SCH (07:59)
[2023-01-29 08:06] VITALS: RESP 19; TEMP 97.7
[2023-01-29] MEDS ORDERED: CHOLECALCIFEROL 25 MCG (1000 IU) TABLET PO SCH (09:00)
[2023-01-29] MEDS ORDERED: atenoloL 25 MG TAB PO SCH (09:00)
[2023-01-29] MEDS ORDERED: LOSARTAN 50 MG TAB PO SCH (09:00)
[2023-01-29] MEDS ORDERED: MULTIVITAMINS, THERA 1 EACH TAB PO SCH (09:00)
[2023-01-29] MEDS ORDERED: allopurinoL 100 MG TAB PO SCH (09:00)
[2023-01-29] MEDS ORDERED: CYANOCOBALAMIN 500 MCG TAB PO SCH (09:00)
[2023-01-29] MEDS ORDERED: ASPIRIN 81 MG PO SCH (09:00)
[2023-01-29] MEDS ORDERED: TAMSULOSIN 0.4 MG CAP.ER.24H PO SCH (09:00)
[2023-01-29] MEDS ORDERED: ATORVASTATIN 40 MG TAB PO SCH (09:00)
[2023-01-29] MEDS ORDERED: MAGNESIUM HYDROXIDE 2,400 MG/30 ML CUP PO PRN (09:00)
[2023-01-29] MEDS: ceFAZolin 3 GM in SODIUM CHLORIDE 0.9% 100 ML IVPB SCH (09:48)
--- NOTE | 2023-01-29 10:29 | CA ---
Transthoracic Echo Report Name: Eduardo Greenfield Age: 73 Gender: M : 1950 Exam Date: 01/29/2023 08:03 Exam Location: [facility] Ht (in): 69 Wt (lb): 307 Ordering Physician: Kayva Pires Attending/Referring Phys: [id number], Lexis Machine Tailer Layo Steinberg Procedure CPT: Indications: post TAVR Cardiac Hx: Technical Quality: Technically difficult study Contrast 1: Lumason Total Dose (mL): 5 Contrast 2: Agitated Saline Total Dose (mL): 10 MEASUREMENTS (Male / Female) Normal Values 2D ECHO LV Diastolic Diameter PLAX 3.9 cm 4.2 - 5.9 / 3.9 - 5.3 cm LV Systolic Diameter PLAX 2.6 cm IVS Diastolic Thickness 1.2 cm 0.6 - 1.0 / 0.6 - 0.9 cm LVPW Diastolic Thickness 1.3 cm 0.6 - 1.0 / 0.6 - 0.9 cm LV Relative Wall Thickness 0.7 RV Internal Dim ED PLAX 2.6 cm LVOT Diameter 2.0 cm Aortic Root Diameter 2.1 cm LA Systolic Diameter LX 3.1 cm 3.0 - 4.0 / 2.7 - 3.8 cm LV Diastolic Volume MOD BP 76.2 cm??? 67 - 155 / 56 - 104 cm??? LV Systolic Volume MOD BP 43.2 cm??? 22 - 58 / 19 - 49 cm??? LV Ejection Fraction MOD BP 43.3 % >= 55 % LV Diastolic Volume MOD 4C 93.2 cm??? LV Systolic Volume MOD 4C 50.2 cm??? LV Ejection Fraction MOD 4C 46.1 % LV Diastolic Length 4C 8.4 cm LV Systolic Length 4C 7.6 cm LV Diastolic Volume MOD 2C 56.8 cm??? LV Systolic Volume MOD 2C 33.5 cm??? LV Ejection Fraction MOD 2C 41.0 % LV Diastolic Length 2C 7.6 cm LV Systolic Length 2C 6.9 cm LA Volume 78.0 cm??? 18 - 58 / 22 - 52 cm??? DOPPLER AV Peak Velocity 224.1 cm/s AV Peak Gradient 20.1 mmHg AV Mean Velocity 181.0 cm/s AV Mean Gradient 14.4 mmHg AV Velocity Time Integral 45.7 cm LVOT Peak Velocity 139.4 cm/s LVOT Peak Gradient 7.8 mmHg AV Area Cont Eq pk 1.9 cm??? MV Peak Velocity 174.1 cm/s MV Peak Gradient 12.1 mmHg MV Mean Velocity 87.2 cm/s MV Mean Gradient 3.9 mmHg MV Velocity Time Integral 47.3 cm Mitral E Point Velocity 121.0 cm/s Mitral A Point Velocity 155.1 cm/s Mitral E to A Ratio 0.8 MV Deceleration Time 252.0 ms MV E' Velocity 9.6 cm/s Mitral E to MV E' Ratio 12.6 TR Peak Velocity 170.1 cm/s TR Peak Gradient 11.6 mmHg Right Ventricular Systolic Press 16.6 mmHg PV Peak Velocity 144.8 cm/s PV Peak Gradient 8.4 mmHg FINDINGS Left Ventricle Normal LV size. Concentric LVH. Left ventricular ejection fraction is estimated at _55-60 %. Right Ventricle Normal right ventricular size. Right Atrium Normal right atrial size. Left Atrium Normal left atrial size. Mitral Valve Mitral valve thickened. Mild MR. Aortic Valve Post TAVR. Tricuspid Valve Tricuspid valve not well visualized. Trace TR. Pulmonic Valve Pulmonic valve not well visualized. Pericardium Not well visualized Aorta Not well visualized. CONCLUSIONS Technically difficult. Normal LV function Normally functioning bioprosthetic valve in aortic position Trace aortic regurgitation Previewed by: Alejandro Galdamez MD Dr. Suresh Tumma MD (Electronically Signed) Final Date: 29 January 2023 10:28
--- NOTE | 2023-01-29 10:56 | P.DS ---
Providers Date of admission: 01/28/23 05:40 Expected date of discharge: 01/29/23 Attending physician: Venancio Randall DO Consults: 01/28/23 06:00 Consult to Anesthesia Routine Consulting Provider: Anesthesia,Services Consult Reason/Comments: Cardiac Surgery Pre-Op 01/28/23 09:38 Consult Physician Routine Consulting Provider: Roberto Ulloa Consult Reason/Comments: post tavr Do you want consulting provider notified?: Already Contacted Primary care physician: Dane Mejia Hospital Course: MEDICAL HISTORY: 1. Calcified aortic valve with severe symptomatic aortic valve stenosis, NYHA III 2. Hypertension 3. Hyperlipidemia, treated, cholesterol 108, LDL 26, triglycerides 152 4. Type 2 diabetes mellitus, hemoglobin A1c 6.5% 5. Hypothyroidism, TSH 3.56 6. Current kidney disease stage III 7. BPH 8. Chronic anemia 9. Gout PROCEDURE: 1. Percutaneous aortic valve implantation using a 34 mm Core Valve Evolute-FX 2. Transesophageal echocardiography performed by anesthesia 3. Ultrasound-guided access and repair of left femoral artery access site by Perclose closure device 4. Placement of temporary pacemaker wire 5. Aortic root angiography HISTORY OF PRESENT ILLNESS: This is a 73-year-old gentleman who follows on an outpatient basis with Dr. Mejia for primary care and Dr. Yu for cardiology. He has a known history of severe aortic stenosis and has been symptomatic with increased exertional dyspnea as well as occasional chest pressure. He had been referred to structural heart clinic for evaluation for transcatheter aortic va lve replacement after heart catheterization and transesophageal echocardiogram were completed. Echocardiography demonstrated normal systolic function with EF 55%, aortic valve area 0.92 cm with a peak/mean gradient 63/39 mmHg. Heart catheterization showed no significant obstructive coronary artery disease. After workup was completed STS risk score was calculated along with incremental risk and the patient was felt to be better served with transcatheter aortic valve replacement. The usual course of TAVR was discussed in detail the patient, risks and benefits were reviewed, shared decision making between cardiology, surgery, and the patient/family took place, and the patient consented to proceed with the procedure. HOSPITAL COURSE: The patient was brought to the hospital on 01/28/2023, was taken to the extended stay area, prepared in the usual fashion, and subsequently taken to the cardiac catheterization laboratory where Dr. Randall and Dr. Ulloa completed TAVR procedure under general anesthesia with fluoroscopy and SHEILA. The valve was deployed under rapid ventricular pacing and proceeded without event. At the end of the procedure hemodynamics were felt to be acceptable, and there was no evidence of significant perivalvular leak. Upon completion of the procedure the patient was extubated and was transferred to the cardiovascular intensive care unit where he was recovered and monitored hemodynamically. His oxygen was titrated down, he was tolerating oral diet, his pain was controlled, follow-up TTE demonstrated normal left ventricular systolic function, functioni ng TAVR valve without significant leak, and he was ready to be discharged to home on postoperative day #1. He received written and verbal instruction regarding his medications, activity restrictions, signs and symptoms requiring physician notification, and follow-up appointments. Patient Condition at Discharge: Stable Plan - Discharge Summary Discharge Rx Participant: Yes New Discharge Prescriptions: New Sennosides-Docusate Sodium [Senokot-S] 2 each PO HS PRN tab PRN Reason: Constipation Acetaminophen Tab [Tylenol] 650 mg PO Q4HR PRN tab PRN Reason: Fever And/ Or Mild Pain (1-3) Continue Insulin Glargine,Hum.rec.anlog [Lantus Solostar Pen] 26 unit SQ HS Cholecalciferol [Vitamin D3 (25 Mcg = 1000 Iu)] 50 mcg PO DAILY Insulin Aspart [NovoLOG Flexpen] 13 units SQ TID-W/MEALS Losartan [Cozaar] 50 mg PO DAILY Tamsulosin [Flomax] 0.4 mg PO HS allopurinoL [Zyloprim] 200 mg PO DAILY atenoloL [Tenormin] 25 mg PO DAILY Multivitamins, Thera [Multivitamin (formulary)] 1 tab PO DAILY Levothyroxine Sodium [Synthroid] 100 mcg PO DAILY Cyanocobalamin (Vitamin B-12) [Vitamin B-12] 1,000 mcg PO DAILY Aspirin [Adult Low Dose Aspirin EC] 81 mg PO DAILY Rosuvastatin [Crestor] 20 mg PO DAILY Discharge Medication List Aspirin [Adult Low Dose Aspirin EC] 81 mg PO DAILY 12/19/21 [History] Cholecalciferol [Vitamin D3 (25 Mcg = 1000 Iu)] 50 mcg PO DAILY 12/19/21 [History] Cyanocobalamin (Vitamin B-12) [Vitamin B-12] 1,000 mcg PO DAILY 12/19/21 [History] Insulin Aspart [NovoLOG Flexpen] 13 units SQ TID-W/MEALS 12/19/21 [History] Insulin Glargine,Hum.rec.anlog [Lantus Solostar Pen] 26 unit SQ HS 12/19/21 [History] Levothyroxine Sodium [Synthroid] 100 mcg PO DAILY 12/19/21 [History] Multivitamins, Thera [Multivitamin (formulary)] 1 tab PO DAILY 12/19/21 [History] Tamsulosin [Flomax] 0.4 mg PO HS 12/19/21 [History] allopurinoL [Zyloprim] 200 mg PO DAILY 12/19/21 [History] atenoloL [Tenormin] 25 mg PO DAILY 12/19/21 [History] Losartan [Cozaar] 50 mg PO DAILY 12/02/22 [History] Rosuvastatin [Crestor] 20 mg PO DAILY 12/02/22 [History] Acetaminophen Tab [Tylenol] 650 mg PO Q4HR PRN tab 01/29/23 [Rx] Sennosides-Docusate Sodium [Senokot-S] 2 each PO HS PRN tab 01/29/23 [Rx] Follow up Appointment(s)/Referral(s): Cm Yu MD [STAFF PHYSICIAN] - 02/03/23 10:15 am (Appointment 02/03 is with DAVID aLwrence for groin check. You also have a 30 day post TAVR echo and appointment with Dr. Yu 04/08/23 @ 12:30 pm, and again 02/04/24 @ 9:45 am for a 1 year post TAVR echo and appointment with Dr. Yu ) Dane Mejia DO [Primary Care Provider] - As Needed Clinic,Structural Heart [NON-STAFF] - 04/08/23 12:00 pm (You have a 30 day post TAVR appointment at the valve clinic 04/08 @ noon before your appointment with Dr. Yu, and again 02/04/24 @ 9:15 am for a 1 year post TAVR valve clinic appointment ) Ambulatory/Diagnostic Orders: Complete Blood Count w/diff [LAB.AMB] Location: None Selected Complete Blood Count w/diff [LAB.AMB] Location: None Selected Comprehensive Metabolic Panel [LAB.AMB] Location: None Selected Comprehensive Metabolic Panel [LAB.AMB] Location: None Selected Patient Instructions/Handouts: Transcatheter Aortic Valve Replacement (DC) Activity/Diet/Wound Care/Special Instructions: DISCHARGE INSTRUCTIONS: 1. No driving for 1 week, or until physician gives their ok. 2. No lifting, pushing, or pulling more than 5-10 pounds for 1 week. 3. Hold both groins when you cough or sneeze for the next 2 weeks. Bruising is common, but report increased swelling, pain or fever >101F 4. Shower daily. No pool, hot tub, or bathtub for 1 week 5. No powders, lotions, ointments on incisions. 6. No straining, including for bowel movements. Use stool softner if necessary 7. Stairs are not an issue. Go slowly, using handrail and take 1 step at a time. Ambulate several times daily 8. Continue pain control per as needed orders. 9. Take only the medications listed on your discharge form 10. Eat low salt (limited to 2 grams or 2000 milligrams) daily, avoid adding salt, avoid canned/processed foods 11. Take your weight daily in the morning and record, bring with you to your follow up appointments 12. Keep all follow up appointments. You will need a valve clinic appointment at 30 days and 1 year post procedure for follow up 13. You have been referred to and are expected to begin Cardiac Rehab in approximately 4 weeks. 14. You will need antibiotics prior to any dental work, including cleanings, and any surgeries to prevent Endocarditis (bacterial infection in your heart) For any questions or concerns please call your valve coordinators: Kavya or Alireza @ Discharge Disposition: HOME SELF-CARE
[2023-01-29 11:39] LABS: Glucose,Whole Blood 210 mg/dL (70-110)
[2023-01-29 12:08] VITALS: BP 138/60; PULSE 78
[2023-01-29] MEDS ORDERED: SENNOSIDES-DOCUSATE SODIUM 1 EACH TAB PO SCH (21:00)
== END 2023-01-29 13:50 | disposition home or self-care (01) | DRG 267 ==
LOC: 2ORMAIN 05:40 → 2SICU 09:16
PROVIDERS: ADMIT Internal Medicine; ATTEND Internal Medicine
PROC: 5A1223Z Performance of Cardiac Pacing, Continuous (ICD-10-PCS; 2023-01-28)
PROC: B3101ZZ Fluoroscopy of Thoracic Aorta using Low Osmolar Contrast (ICD-10-PCS; 2023-01-28)
PROC: B24BZZ4 Ultrasonography of Heart with Aorta, Transesophageal (ICD-10-PCS; 2023-01-28)
PROC: 02RF38Z Replacement of Aortic Valve with Zooplastic Tissue, Percutaneous Approach (ICD-10-PCS; principal; 2023-01-28 08:00)
PROC: 04QL0ZZ Repair Left Femoral Artery, Open Approach (ICD-10-PCS; 2023-01-28 08:00)
DX: I35.2 Nonrheumatic aortic (valve) stenosis with insufficiency (principal); Z00.6 Encounter for examination for normal comparison and control in clinical research program; Z68.42 Body mass index [BMI] 45.0-49.9, adult; E03.9 Hypothyroidism, unspecified; E78.5 Hyperlipidemia, unspecified; M10.9 Gout, unspecified; N18.30 Chronic kidney disease, stage 3 unspecified; I12.9 Hypertensive chronic kidney disease with stage 1 through stage 4 chronic kidney disease, or unspecified chronic kidney disease; D63.1 Anemia in chronic kidney disease; N40.0 Benign prostatic hyperplasia without lower urinary tract symptoms; E11.22 Type 2 diabetes mellitus with diabetic chronic kidney disease; E66.01 Morbid (severe) obesity due to excess calories; M19.90 Unspecified osteoarthritis, unspecified site
CPT/HCPCS: 33210; 33361; 71045; 80053; 82330; 83735; 85025; 85610; 85730; 86850; 86900; 86901; 93306; 93312; 93320; 93325

== ENCOUNTER 2023-02-01 16:18 | Inpatient (IN) | payer MEDICARE, OTHER ==
[2023-02-01 17:08] LABS: Basophils % (A) 0 %; Eosinophils # (A) 0.1 k/uL (0-0.7); Eosinophils % (A) 2 %; HCT 33.1 % (39.0-53.0); HGB 10.6 gm/dL (13.0-17.5); Hypochromasia Slight; Lymphocytes # (A) 0.8 k/uL (1.0-4.8); Lymphocytes % (A) 13 %; MCH 32.4 pg (25.0-35.0); MCHC 31.9 g/dL (31.0-37.0); MCV 101.4 fL (80.0-100.0); Macrocytosis Slight; Mean Platelet Volume 8.8; Monocytes # (A) 0.4 k/uL (0-1.0); Monocytes % (A) 6 %; Neutrophils # (A) 4.9 k/uL (1.3-7.7); Neutrophils % (A) 78 %; Platelet Count 146 k/uL (150-450); RBC 3.26 m/uL (4.30-5.90); WBC 6.3 k/uL (3.8-10.6)
[2023-02-01 17:16] LABS: Partial Thromboplastin Time 22.1 sec (22.0-30.0); Prothrombin Time 10.5 sec (9.0-12.0)
[2023-02-01 17:22] LABS: ALT 32 U/L (4-49); AST 76 U/L (17-59); African American GFR (CKD) 32 (>60 ml/min/1.73 sqM); Albumin 3.2 g/dL (3.5-5.0); Alkaline Phosphatase 112 U/L (38-126); Anion Gap 10 mmol/L; Blood Urea Nitrogen 38 mg/dL (9-20); Calcium 8.1 mg/dL (8.4-10.2); Carbon Dioxide 21 mmol/L (22-30); Chloride 107 mmol/L (98-107); Glucose 177 mg/dL (74-99); Non-African American GFR(CKD) 27 (>60 ml/min/1.73 sqM); Potassium 4.8 mmol/L (3.5-5.1); Sodium 138 mmol/L (137-145); Total Bilirubin 0.3 mg/dL (0.2-1.3); Total Protein 6.1 g/dL (6.3-8.2)
--- NOTE | 2023-02-01 17:26 | ED ---
General Adult HPI - General Chief complaint: Dizziness Stated complaint: s/p TAVR with low heart rate Time Seen by Provider: 02/01/23 16:27 Source: patient Mode of arrival: wheelchair Limitations: no limitations - History of Present Illness Initial comments: This is a 73-year-old male with a past medical history including hypertension, diabetes and recent TAVR procedure performed on Thursday presents emergency department for low heart rate and increasing terms of breath. The patient stated that he was doing well after the surgery but noted that at lunch today he started to note that he was increasingly short of breath. The patient stated t hat he checked his heart rate and noted it was very low so he came into the emergency department for evaluation. While speaking, the patient did have some minor shortness of breath but denied any lightheadedness, dizziness or chest pain. The patient denied any other acute pain or complaints at this time. - Related Data Home Medications Medication Instructions Recorded Confirmed Aspirin [Adult Low Dose Aspirin EC] 81 mg PO DAILY 12/19/21 01/28/23 Cholecalciferol [Vitamin D3 (25 50 mcg PO DAILY 12/19/21 01/28/23 Mcg = 1000 Iu)] Cyanocobalamin (Vitamin B-12) 1,000 mcg PO DAILY 12/19/21 01/28/23 [Vitamin B-12] Insulin Aspart [NovoLOG Flexpen] 13 units SQ TID-W/MEALS 12/19/21 01/28/23 Insulin Glargine,Hum.rec.anlog 26 unit SQ HS 12/19/21 01/28/23 [Lantus Solostar Pen] Levothyroxine Sodium [Synthroid] 100 mcg PO DAILY 12/19/21 01/28/23 Multivitamins, Thera [Multivitamin 1 tab PO DAILY 12/19/21 01/28/23 (formulary)] Tamsulosin [Flomax] 0.4 mg PO HS 12/19/21 01/28/23 allopurinoL [Zyloprim] 200 mg PO DAILY 12/19/21 01/28/23 atenoloL [Tenormin] 25 mg PO DAILY 12/19/21 01/28/23 Losartan [Cozaar] 50 mg PO DAILY 12/02/22 01/28/23 Rosuvastatin [Crestor] 20 mg PO DAILY 12/02/22 01/28/23 Previous Rx's Medication Instructions Recorded Acetaminophen Tab [Tylenol] 650 mg PO Q4HR PRN tab 01/29/23 Sennosides-Docusate Sodium 2 each PO HS PRN tab 01/29/23 [Senokot-S] Allergies Allergy/AdvReac Type Severity Reaction Status Date / Time albuterol Allergy Rash/Hives Verified 02/01/23 16:23 Review of Systems ROS Statement: Those systems with pertinent positive or pertinent negative responses have been documented in the HPI. ROS Other: All systems not noted in ROS Statement are negative. Past Medical History Past Medical History: Diabetes Mellitus, Hearing Disorder / Deafness, Hypertension, Osteoarthritis (OA), Renal Disease, Thyroid Disorder Additional Past Medical History / Comment(s): CHRONIC KIDNEY DISEASE, MACULAR DEGENERATION, NEUROPATHY - BOTH FEET, SOB w/exertion History of Any Multi-Drug Resistant Organisms: None Reported Past Surgical History: Appendectomy, Heart Catheterization, Joint Replacement Additional Past Surgical History / Comment(s): BILAT CATARACTS REMOVED WITH LENS IMPLANTS. COLONOSCOPY, TOTAL RIGHT HIP Past Anesthesia/Blood Transfusion Reactions: No Reported Reaction Past Psychological History: No Psychological Hx Reported Smoking Status: Never smoker Past Alcohol Use History: None Reported Past Drug Use History: None Reported - Past Family History Mother Family Medical History: Cancer General Exam Limitations: no limitations General appearance: alert, in no apparent distress, obese Head exam: Present: atraumatic, normocephalic, normal inspection Eye exam: Present: normal appearance, PERRL Pupils: Present: normal accommodation ENT exam: Present: normal exam, normal oropharynx, mucous membranes moist Neck exam: Present: normal inspection, full ROM Respiratory exam: Present: normal lung sounds bilaterally Cardiovascular Exam: Present: normal rhythm, bradycardia GI/Abdominal exam: Present: soft, normal bowel sounds Extremities exam: Present: normal inspection, full ROM, pedal edema Back exam: Present: normal inspection, full ROM Neurological exam: Present: alert, oriented X3, CN II-XII intact Psychiatric exam: Present: normal affect, normal mood Skin exam: Present: warm, dry Course Vital Signs 02/01/23 02/01/23 02/01/23 16:19 17:09 17:42 Temperature 98.1 F Pulse Rate 41 L 36 L 55 L Respiratory 18 17 17 Rate Blood Pressure 121/70 103/46 122/86 O2 Sat by Pulse 97 94 L 94 L Oximetry 02/01/23 18:41 Temperature Pulse Rate 65 Respiratory 15 Rate Blood Pressure 128/60 O2 Sat by Pulse 95 Oximetry EKG Findings - EKG Comments: EKG Findings:: An EKG was obtained and was interpreted by myself showing a rate of 44, QRS duration of 154, QTC of 431. This EKG did show a right bundle branch block and was sinus bradycardia without ST segment elevation or depression noted. Medical Decision Making - Medical Decision Making Was pt. sent in by a medical professional or institution ([facility], [facility] [employer], urgent care, hospital, or assisted...) When possible be specific @ -No Did you speak to anyone other than the patient for history (EMS, parent, family, police, friend...)? What history was obtained from this source @ -Yes, patient's was at the bedside and did state that the patient had symptoms that began at lunch Did you review nursing and triage notes (agree or disagree)? Why? @ -I reviewed and agree with nursing and triage notes Were old charts reviewed (outside hosp., previous admission, EMS record, old EKG, old radiological studies, urgent care reports/EKG's, assisted records)? Report findings @ -No old charts were reviewed Differential Diagnosis (chest pain, altered mental status, abdominal pain women, abdominal pain men, vaginal bleeding, weakness, fever, dyspnea, syncope, headache, dizziness, GI bleed, back pain, seizure, CVA, palpatations, mental health)? @ -Symptomatic bradycardia, third-degree heart block, ACS EKG interpreted by me (3pts min.). @ -As above X-rays interpreted by me (1pt min.). @ -Chest x-ray was ordered however was pending at this time. CT interpreted by me (1pt min.). @ -None done U/S interpreted by me (1pt. min.). @ -None done What testing was considered but not performed or refused? (CT, X-rays, U/S, labs)? Why? @ -None What meds were considered but not given or refused? Why? @ -None Did you discuss the management of the patient with other professionals (professionals i.e. [facility], [employer], lab, RT, psych nurse, social media content specialist, delivery clerk, teacher, correctional officer lieutenant, nurse outreach case manager)? Give summary @ -Yes, the patient's cardiothoracic surgeon, Dr. Ulloa was made aware of the patient but stated that cardiology was to be contacted and he was not needed to be on consult at this time. The regulatory coordinator on-call, Dr. Montenegro, was contacted and did state that the patient to go to the ICU for further evaluation, made nothing by mouth at midnight for likely pacemaker placement in the morning. Daniela sahu from [facility] was also contacted regarding admission and she did accept the patient. Dr. Clemons was also contacted for ICU admission however he did state that he did not need to be on consult and did accept the patient to the ICU however. Was smoking cessation discussed for >3mins.? @ -No Was critical care preformed (if so, how long)? @ -Yes, see above Were there social determinants of health that impacted care today? How? (Homelessness, low income, unemployed, alcoholism, drug addiction, transporta tion, low edu. Level, literacy, decrease access to med. care, mcc, rehab)? @ -No Was there de-escalation of care discussed even if they declined (Discuss DNR or withdrawal of care, Hospice)? DNR status @ -No What co-morbidities impacted this encounter? (DM, HTN, Smoking, COPD, CAD, Cancer, CVA, ARF, Chemo, Hep., AIDS, mental health diagnosis, sleep apnea, morbid obesity)? @ -Hypertension, diabetes, recent TAVR on Thursday Was patient admitted / discharged? Hospital course, mention meds given and route, prescriptions, significant lab abnormalities, going to OR and other pertinent info. @ -The patient was seen and evaluated in the emergency department. Physical exam, the patient was resting in bed without any acute distress or symptoms. Vital signs admission however did show bradycardia with a normal blood pressure. EKG confirms the sinus bradycardia. Due to the patient's symptoms in the setting of bradycardia, for workup was obtained and did show an elevated troponin however due to the patient's recent cardiac surgery, it was likely secondary to this and did not require heparin at this time. Due to the patient's symptomatically bradycardia, the initial cardiac thoracic surgeon, Dr. Ulloa was contacted who stated that he did not need to be on consult and to contact cardiology. Dr. Montenegro was contacted and did recommend placement in the ICU and nothing by mouth at midnight. Dr. Clemons was contacted for ICU placement and he did accept the patient to the ICU however stated that he did not need to be on consult due to the patient being a cardiac patient. [facility] was contacted by EMS and accepted the patient for admission. It was also recommended to hold the patient's beta owen overnight. The patient was agreeable to this plan and was placed in ICU in stable condition. Undiagnosed new problem with uncertain prognosis? @ -No Drug Therapy requiring intensive monitoring for toxicity (Heparin, Nitro, Insulin, Cardizem)? @ -No Were any procedures done? @ -No Diagnosis/symptom? @ -Symptomatic bradycardia Acute, or Chronic, or Acute on Chronic? @ -Acute Uncomplicated (without systemic symptoms) or Complicated (systemic symptoms)? @ -Complicated Side effects of treatment? @ -No Exacerbation, Progression, or Severe Exacerbation? @ -No Poses a threat to life or bodily function? How? (Chest pain, USA, MD, pneumonia, PE, COPD, DKA, ARF, appy, cholecystitis, CVA, Diverticulitis, Homicidal, Suicidal, threat to staff... and all critical care pts) @ -Yes, continued symptomatic bradycardia can lead to worsening arrhythmia and possible . - Lab Data Result diagrams: 02/01/23 16:53 02/01/23 16:53 Lab Results 02/01/23 02/01/23 02/01/23 Range/Units 16:53 16:53 16:53 WBC 6.3 (3.8-10.6) k/uL RBC 3.26 L (4.30-5.90) m/uL Hgb 10.6 L (13.0-17.5) gm/dL Hct 33.1 L (39.0-53.0) % MCV 101.4 H (80.0-100.0) fL MCH 32.4 (25.0-35.0) pg MCHC 31.9 (31.0-37.0) g/dL RDW 14.0 (11.5-15.5) % Plt Count 146 L (150-450) k/uL MPV 8.8 Neutrophils % 78 % Lymphocytes % 13 % Monocytes % 6 % Eosinophils % 2 % Basophils % 0 % Neutrophils # 4.9 (1.3-7.7) k/uL Lymphocytes # 0.8 L (1.0-4.8) k/uL Monocytes # 0.4 (0-1.0) k/uL Eosinophils # 0.1 (0-0.7) k/uL Basophils # 0.0 (0-0.2) k/uL Hypochromasia Slight Macrocytosis Slight PT 10.5 (9.0-12.0) sec INR 1.0 (<1.2) APTT 22.1 (22.0-30.0) sec Sodium 138 (137-145) mmol/L Potassium 4.8 (3.5-5.1) mmol/L Chloride 107 (98-107) mmol/L Carbon Dioxide 21 L (22-30) mmol/L Anion Gap 10 mmol/L BUN 38 H (9-20) mg/dL Creatinine 2.26 H (0.66-1.25) mg/dL Est GFR (CKD-EPI)AfAm 32 (>60 ml/min/1.73 sqM) Est GFR (CKD-EPI)NonAf 27 (>60 ml/min/1.73 sqM) Glucose 177 H (74-99) mg/dL Calcium 8.1 L (8.4-10.2) mg/dL Magnesium 2.0 (1.6-2.3) mg/dL Total Bilirubin 0.3 (0.2-1.3) mg/dL AST 76 H (17-59) U/L ALT 32 (4-49) U/L Alkaline Phosphatase 112 (38-126) U/L Troponin I (0.000-0.034) ng/mL NT-Pro-B Natriuret Pep pg/mL Total Protein 6.1 L (6.3-8.2) g/dL Albumin 3.2 L (3.5-5.0) g/dL 02/01/23 02/01/23 Range/Units 16:53 16:53 WBC (3.8-10.6) k/uL RBC (4.30-5.90) m/uL Hgb (13.0-17.5) gm/dL Hct (39.0-53.0) % MCV (80.0-100.0) fL MCH (25.0-35.0) pg MCHC (31.0-37.0) g/dL RDW (11.5-15.5) % Plt Count (150-450) k/uL MPV Neutrophils % % Lymphocytes % % Monocytes % % Eosinophils % % Basophils % % Neutrophils # (1.3-7.7) k/uL Lymphocytes # (1.0-4.8) k/uL Monocytes # (0-1.0) k/uL Eosinophils # (0-0.7) k/uL Basophils # (0-0.2) k/uL Hypochromasia Macrocytosis PT (9.0-12.0) sec INR (<1.2) APTT (22.0-30.0) sec Sodium (137-145) mmol/L Potassium (3.5-5.1) mmol/L Chloride (98-107) mmol/L Carbon Dioxide (22-30) mmol/L Anion Gap mmol/L BUN (9-20) mg/dL Creatinine (0.66-1.25) mg/dL Est GFR (CKD-EPI)AfAm (>60 ml/min/1.73 sqM) Est GFR (CKD-EPI)NonAf (>60 ml/min/1.73 sqM) Glucose (74-99) mg/dL Calcium (8.4-10.2) mg/dL Magnesium (1.6-2.3) mg/dL Total Bilirubin (0.2-1.3) mg/dL AST (17-59) U/L ALT (4-49) U/L Alkaline Phosphatase (38-126) U/L Troponin I 0.204 H* (0.000-0.034) ng/mL NT-Pro-B Natriuret Pep 4080 pg/mL Total Protein (6.3-8.2) g/dL Albumin (3.5-5.0) g/dL Critical Care Time Critical Care Time: Yes Total Critical Care Time: 38 Disposition Clinical Impression: Symptomatic bradycardia Disposition: ADMITTED IP TO THIS [facility] Condition: Stable Is patient prescribed a controlled substance at d/c from ED?: No Referrals: Dane Mejia DO [Primary Care Provider] - 1-2 days Time of Disposition: 17:00 Decision to Admit Reason: Admit from EC Decision Date: 02/01/23 Decision Time: 17:00
[2023-02-01] MEDS ORDERED: NALOXONE 0.4 MG/ML 1 ML VIAL IV PRN (18:55)
--- NOTE | 2023-02-01 19:53 | XR ---
EXAMINATION TYPE: XR chest 2V DATE OF EXAM: 02/01/2023 7:47 PM COMPARISON: Chest radiographs from 01/29/2023 TECHNIQUE: XR chest 2V Frontal and lateral views of the chest. CLINICAL INDICATION:Male, 73 years old with history of CP; FINDINGS: Lungs/Pleura: There is no evidence of pleural effusion, focal consolidation, or pneumothorax. Pulmonary vascularity: Unremarkable. Heart/mediastinum: Cardiomediastinal silhouette is unremarkable. Musculoskeletal: No acute osseous pathology. IMPRESSION: No acute cardiopulmonary disease/process.
[2023-02-01 21:36] LABS: Glucose,Whole Blood 159 mg/dL (70-110)
[2023-02-02] MEDS ORDERED: SENNOSIDES-DOCUSATE SODIUM 1 EACH TAB PO PRN (06:44)
[2023-02-02] MEDS ORDERED: DEXTROSE 50% SYRINGE 50 ML IVP PRN ×2 (06:45)
[2023-02-02] MEDS: INSULIN ASPART (NovoLOG) 100 UNIT/ML VIAL SQ SCH ×4 (07:27→21:00)
[2023-02-02 07:42] LABS: Basophils % (A) 0 %; Eosinophils # (A) 0.2 k/uL (0-0.7); Eosinophils % (A) 3 %; HCT 33.6 % (39.0-53.0); HGB 10.4 gm/dL (13.0-17.5); Hypochromasia Moderate; Lymphocytes # (A) 0.9 k/uL (1.0-4.8); Lymphocytes % (A) 11 %; MCH 31.9 pg (25.0-35.0); MCV 102.8 fL (80.0-100.0); Macrocytosis Slight; Mean Platelet Volume 8.6; Monocytes # (A) 0.5 k/uL (0-1.0); Monocytes % (A) 6 %; Neutrophils # (A) 6.2 k/uL (1.3-7.7); Neutrophils % (A) 79 %; Platelet Count 158 k/uL (150-450); RBC 3.27 m/uL (4.30-5.90); RDW 14.1 % (11.5-15.5); WBC 7.8 k/uL (3.8-10.6)
[2023-02-02 07:55] LABS: African American GFR (CKD) 38 (>60 ml/min/1.73 sqM); Anion Gap 8 mmol/L; Blood Urea Nitrogen 33 mg/dL (9-20); Carbon Dioxide 21 mmol/L (22-30); Chloride 110 mmol/L (98-107); Glucose 136 mg/dL (74-99); Non-African American GFR(CKD) 32 (>60 ml/min/1.73 sqM); Sodium 139 mmol/L (137-145)
[2023-02-02 08:06] LABS: Potassium 4.9 mmol/L (3.5-5.1)
[2023-02-02] MEDS: MULTIVITAMINS, THERA 1 EACH TAB PO SCH (08:12)
[2023-02-02] MEDS: CHOLECALCIFEROL 25 MCG (1000 IU) TABLET PO SCH (08:12)
[2023-02-02] MEDS: ASPIRIN 81 MG PO SCH (08:12)
[2023-02-02] MEDS: allopurinoL 100 MG TAB PO SCH (08:12)
[2023-02-02] MEDS: CYANOCOBALAMIN 500 MCG TAB PO SCH (08:12)
[2023-02-02] MEDS: ATORVASTATIN 40 MG TAB PO SCH (08:12)
[2023-02-02] MEDS: LEVOTHYROXINE 100 MCG TAB PO SCH (08:14)
--- NOTE | 2023-02-02 10:01 | P.CRDCN ---
History of Present Illness History of present illness: HISTORY OF PRESENTING ILLNESS Patient is pleasant 73-year-old male with history of severe aortic stenosis status post transcatheter aortic valve replacement 01/28/2023, hypertension, hyperlipidemia, diabetes mellitus type 2, hypothyroidism, CAD, BPH, anemia, gout. Patient follows in the office with Dr. Yu. Patient has been having progressive dyspnea on exertion and found to have severe aortic stenosis. He underwent workup with heart catheterization showing no significant obstructive disease and eventually underwent transcatheter aortic valve replacement with a 34 mm Evolute Fx 01/28. Patient did well postoperatively and had some mild sinus bradycardia heart rates in the 40s to 50s and was asymptomatic and therefore discharged home on 01/29. He had been doing fairly well however had an episode at lunch where he got hypoglycemic and then got lightheaded and short of breath. He noted his heart rate was in the 30s and 40s and presented to emergency department and was found to be in second-degree type 2 block with prolonged MS interval. His atenolol was discontinued and heart rates mainly in the 60s and 70s however still occasionally having second-degree block. Troponins noted to be mildly elevated. He states he has been having occasional 10-15 minutes of left-sided chest pain not associated with any shortness breath or nausea. Does not occur with any exertion. He admits this may be positional from prior hospitalization. REVIEW OF SYSTEMS At the time of my exam: CONSTITUTIONAL: Denies fever or chills. CARDIOVASCULAR: +chest pain, +shortness of breath, no orthopnea, PND or palpitations. RESPIRATORY: Denies cough. GASTROINTESTINAL: Denies abdominal pain, diarrhea, constipation, nausea or vomiting. MUSCULOSKELETAL: Denies myalgias. NEUROLOGIC: Denies numbness, tingling or weakness. ENDOCRINE: Denies fatigue, weight change, polydipsia or polyurina. GENITOURINARY: Denies burning, hematuria or urgency with micturation. HEMATOLOGIC: Denies history of anemia or bleeding. PHYSICAL EXAMINATION Vital signs reviewed. CONSTITUTIONAL: No apparent distress. HEENT: Head is normocephalic. Pupils are equal, round. Sclerae anicteric. Mucous membranes of the mouth are moist. No JVD. No carotid bruit. CHEST EXAMINATION: Lungs are clear to auscultation. No chest wall tenderness is noted on palpation or with deep breathing. HEART EXAMINATION: Regular rate and rhythm. S1, S2 heard. No murmurs, gallops or rub. ABDOMEN: Soft, nontender. Positive bowel sounds. EXTREMITIES: 2+ peripheral pulses, no lower extremity edema and no calf tenderness. NEUROLOGIC EXAMINATION: Patient is awake, alert and oriented x3. ASSESSMENT 1. Symptomatic bradycardia, second-degree type II heart block likely related to recent transcatheter valve replacement. Possible component of atenolol 2. Severe aortic stenosis status post transcatheter valve replacement 01/28 3. Hypertension 4. Non-STEMI, likely type II mechanism 5. Atypical chest pain 6. Diabetes mellitus type 2 PLAN Patient with 2-1 block with what appears to be second-degree type II block likely related to recent transcatheter aortic valve replacement. We will continue to hold atenolol and monitor heart rates. If he is still having significant blocks, patient will need permanent pacemaker. NSTEMI appears related to bradycardia and hypoglycemic episode and chest pain is atypical with recent echo showing no significant issues from transcatheter valve replacement. Past Medical History Past Medical History: Diabetes Mellitus, Hearing Disorder / Deafness, Hypertension, Osteoarthritis (OA), Renal Disease, Thyroid Disorder Additional Past Medical History / Comment(s): CHRONIC KIDNEY DISEASE, MACULAR DEGENERATION, NEUROPATHY - BOTH FEET, SOB w/exertion History of Any Multi-Drug Resistant Organisms: None Reported Past Surgical History: Appendectomy, Heart Catheterization, Joint Replacement Additional Past Surgical History / Comment(s): BILAT CATARACTS REMOVED WITH LENS IMPLANTS. COLONOSCOPY, TOTAL RIGHT HIP Past Anesthesia/Blood Transfusion Reactions: No Reported Reaction Past Psychological History: No Psychological Hx Reported Smoking Status: Never smoker Past Alcohol Use History: None Reported Additional Past Alcohol Use History / Comment(s): couple drinks per week Past Drug Use History: None Reported - Past Family History Mother Family Medical History: Cancer Medications and Allergies Home Medications Medication Instructions Recorded Confirmed Type Aspirin [Adult Low Dose Aspirin EC] 81 mg PO DAILY 12/19/21 02/01/23 History Cholecalciferol [Vitamin D3 (25 50 mcg PO DAILY 12/19/21 02/01/23 History Mcg = 1000 Iu)] Cyanocobalamin (Vitamin B-12) 1,000 mcg PO DAILY 12/19/21 02/01/23 History [Vitamin B-12] Insulin Aspart [NovoLOG Flexpen] 13 units SQ TID-W/MEALS 12/19/21 02/01/23 History Insulin Glargine,Hum.rec.anlog 26 unit SQ HS 12/19/21 02/01/23 History [Lantus Solostar Pen] Levothyroxine Sodium [Synthroid] 100 mcg PO DAILY 12/19/21 02/01/23 History Multivitamins, Thera [Multivitamin 1 tab PO DAILY 12/19/21 02/01/23 History (formulary)] Tamsulosin [Flomax] 0.4 mg PO HS 12/19/21 02/01/23 History allopurinoL [Zyloprim] 200 mg PO DAILY 12/19/21 02/01/23 History atenoloL [Tenormin] 25 mg PO DAILY 12/19/21 02/01/23 History Losartan [Cozaar] 50 mg PO DAILY 12/02/22 02/01/23 History Rosuvastatin [Crestor] 20 mg PO DAILY 12/02/22 02/01/23 History Acetaminophen Tab [Tylenol] 650 mg PO Q4HR PRN tab 01/29/23 02/01/23 Rx Sennosides-Docusate Sodium 2 tab PO HS PRN 02/01/23 02/01/23 History [Senokot-S] Allergies Allergy/AdvReac Type Severity Reaction Status Date / Time albuterol Allergy Rash/Hives Verified 02/01/23 20:35 Physical Exam Vitals: Vital Signs Temp Pulse Resp BP Pulse Ox 02/02/23 09:00 73 20 149/77 96 02/02/23 08:42 96 02/02/23 08:00 75 19 165/87 95 02/02/23 07:30 71 17 152/72 97 02/02/23 07:00 63 19 152/72 99 02/02/23 06:30 65 15 160/69 98 02/02/23 06:00 65 17 160/74 99 02/02/23 05:30 65 19 167/54 99 02/02/23 05:00 66 14 98 02/02/23 04:30 61 17 166/88 98 02/02/23 04:00 60 19 174/83 99 02/02/23 03:50 61 14 99 02/02/23 03:40 61 21 174/83 99 02/02/23 03:33 16 02/02/23 03:30 58 L 18 171/86 99 02/02/23 03:20 58 L 21 171/86 99 02/02/23 03:10 60 16 171/86 80 L 02/02/23 03:00 54 L 18 95 02/02/23 02:50 58 L 17 95 02/02/23 02:40 59 L 16 96 02/02/23 02:30 60 18 95 02/02/23 02:20 61 21 164/84 95 02/02/23 02:10 58 L 12 164/84 93 L 02/02/23 02:00 57 L 22 164/84 95 02/02/23 01:50 56 L 18 96 02/02/23 01:40 21 96 02/02/23 01:30 58 L 20 170/81 96 02/02/23 01:20 56 L 19 170/81 95 02/02/23 01:10 54 L 15 170/81 96 02/02/23 01:00 54 L 8 L 166/84 97 02/02/23 00:50 53 L 7 L 166/84 96 02/02/23 00:40 54 L 3 L 166/84 02/02/23 00:30 54 L 7 L 151/78 96 02/02/23 00:20 55 L 9 L 145/79 93 L 02/02/23 00:10 54 L 15 145/79 97 02/02/23 00:00 56 L 16 147/70 95 02/01/23 23:50 56 L 6 L 147/70 95 02/01/23 23:40 54 L 14 151/82 94 L 02/01/23 23:30 55 L 17 151/82 95 02/01/23 23:20 54 L 22 97 02/01/23 23:10 55 L 20 155/75 93 L 02/01/23 23:00 53 L 19 163/74 96 02/01/23 22:50 53 L 15 96 02/01/23 22:41 19 02/01/23 22:40 54 L 17 96 02/01/23 22:36 54 L 18 166/78 96 02/01/23 22:30 56 L 23 166/78 97 02/01/23 22:20 55 L 20 96 02/01/23 22:10 53 L 19 155/78 96 02/01/23 22:00 54 L 17 98 02/01/23 21:50 56 L 21 98 02/01/23 21:48 98.7 F 54 L 28 H 167/74 97 02/01/23 20:50 56 L 18 154/76 97 02/01/23 19:37 56 L 18 136/60 97 02/01/23 18:41 65 15 128/60 95 02/01/23 17:42 55 L 17 122/86 94 L 02/01/23 17:09 36 L 17 103/46 94 L 02/01/23 16:19 98.1 F 41 L 18 121/70 97 Intake and Output 02/01/23 02/02/23 02/02/23 22:59 06:59 14:59 Intake Total 100 Output Total 0 650 Balance 0 -650 100 Intake: Oral 100 Output: Urine 0 650 Other: Voiding Method Toilet # Voids 3 # Bowel Movements 1 Weight 140.16 kg 145.6 kg Results 02/02/23 07:26 02/02/23 07:26 Cardiac Enzymes 02/01/23 02/01/23 02/02/23 Range/Units 16:53 16:53 07:56 AST 76 H (17-59) U/L Troponin I 0.204 H* 0.183 H* (0.000-0.034) ng/mL Coagulation 02/01/23 Range/Units 16:53 PT 10.5 (9.0-12.0) sec APTT 22.1 (22.0-30.0) sec CBC 02/01/23 02/02/23 Range/Units 16:53 07:26 WBC 6.3 7.8 (3.8-10.6) k/uL RBC 3.26 L 3.27 L (4.30-5.90) m/uL Hgb 10.6 L 10.4 L (13.0-17.5) gm/dL Hct 33.1 L 33.6 L (39.0-53.0) % Plt Count 146 L 158 (150-450) k/uL Comprehensive Metabolic Panel 02/01/23 02/02/23 Range/Units 16:53 07:26 Sodium 138 139 (137-145) mmol/L Potassium 4.8 4.9 (3.5-5.1) mmol/L Chloride 107 110 H (98-107) mmol/L Carbon Dioxide 21 L 21 L (22-30) mmol/L BUN 38 H 33 H (9-20) mg/dL Creatinine 2.26 H 1.97 H (0.66-1.25) mg/dL Glucose 177 H 136 H (74-99) mg/dL Calcium 8.1 L 8.0 L (8.4-10.2) mg/dL AST 76 H (17-59) U/L ALT 32 (4-49) U/L Alkaline Phosphatase 112 (38-126) U/L Total Protein 6.1 L (6.3-8.2) g/dL Albumin 3.2 L (3.5-5.0) g/dL Current Medications Generic Name Dose Route Start Last Admin Trade Name Freq PRN Reason Stop Dose Admin Acetaminophen 650 mg 02/02/23 06:44 Acetaminophen Tab 325 Mg Tab PO Q4HR PRN Fever And/ Or Mild Pain (1-3) Allopurinol 200 mg 02/02/23 09:00 02/02/23 08:12 Allopurinol 100 Mg Tab PO 200 mg DAILY JARVIS Administration Aspirin 81 mg 02/02/23 09:00 02/02/23 08:12 Aspirin 81 Mg PO 81 mg DAILY JARVIS Administration Atorvastatin Calcium 40 mg 02/02/23 09:00 02/02/23 08:12 Atorvastatin 40 Mg Tab PO 40 mg DAILY JARVIS Administration Cholecalciferol 50 mcg 02/02/23 09:00 02/02/23 08:12 Cholecalciferol 25 Mcg (1000 Iu) Tablet PO 50 mcg DAILY JARVIS Administration Cyanocobalamin 1,000 mcg 02/02/23 09:00 02/02/23 08:12 Cyanocobalamin 500 Mcg Tab PO 1,000 mcg DAILY JARVIS Administration Dextrose/Water 25 ml 02/02/23 06:45 Dextrose 50% Syringe 50 Ml IVP PER PROTOCOL PRN Hypoglycemia Protocol Dextrose/Water 50 ml 02/02/23 06:45 Dextrose 50% Syringe 50 Ml IVP PER PROTOCOL PRN Hypoglycemia Protocol Insulin Aspart 0 unit 02/02/23 07:30 02/02/23 07:27 Insulin Aspart (Novolog) 100 Unit/Ml Vial SQ Not Given ACHS [facility] Protocol Insulin Detemir 26 unit 02/02/23 21:00 Insulin Detemir (Levemir) 100 Unit/Ml Syr SQ HS [facility] Levothyroxine Sodium 100 mcg 02/02/23 07:30 02/02/23 08:14 Levothyroxine 100 Mcg Tab PO 100 mcg 0630 JARVIS Administration Multivitamins 1 each 02/02/23 09:00 02/02/23 08:12 Multivitamins, Thera 1 Each Tab PO 1 each DAILY JARVIS Administration Naloxone HCl 0.2 mg 02/01/23 18:55 Naloxone 0.4 Mg/Ml 1 Ml Vial IV Q2M PRN Opioid Reversal Senna/Docusate Sodium 2 each 02/02/23 06:44 Sennosides-Docusate Sodium 1 Each Tab PO HS PRN Constipation Tamsulosin HCl 0.4 mg 02/02/23 21:00 Tamsulosin 0.4 Mg Cap.Er.24h PO HS JARVIS Intake and Output 02/01/23 02/02/23 02/02/23 22:59 06:59 14:59 Intake Total 100 Output Total 0 650 Balance 0 -650 100 Intake: Oral 100 Output: Urine 0 650 Other: Voiding Method Toilet # Voids 3 # Bowel Movements 1 Weight 140.16 kg 145.6 kg 02/02/23 07:26 02/02/23 07:26
[2023-02-02] MEDS ORDERED: ATROPINE SULFATE 0.1 MG/ML 10ML SYRINGE ONE (11:41)
[2023-02-02] MEDS: DOPamine DRIP 800 MG in DEXTROSE/WATER 1 250ML.BAG IV SCH (11:45)
[2023-02-02] MEDS ORDERED: DOPamine DRIP 250 ML IV ONE (11:46)
[2023-02-02 20:49] LABS: Glucose,Whole Blood 156 mg/dL (70-110)
--- NOTE | 2023-02-02 20:58 | P.HPIM ---
History of Present Illness H&P Date: 02/02/23 Chief Complaint: Lightheadedness Patient is a 73-year-old male with a known history of severe tricuspid aortic stenosis who underwent TAVR on 01/28/2023 presents to ER with complaints of lightheadedness, shortness of breath and noted to be bradycardic with heart rate 44 and he noticed his smart watch. Patient also has history of hypertension, diabetes type 2, osteoarthritis, hypothyroidism and hearing disorder/deafness. Patient was recently admitted to the hospital due to exertional dyspnea and found to have severe aortic stenosis. Patient underwent cardiac catheterization showed no significant coronary obstructive disease. Patient had SHEILA in November 2022. Postoperatively patient was noted to be in sinus bradycardia with heart rate in 50s but was asymptomatic. Patient felt improved after discharge until yesterday. Patient presents to ER due to low heart rate. EKG showed second- degree type II heart block. Patient is on atenolol 25 mg daily at home., Which is on hold. Patient otherwise denies any chest pain currently. Denies any fever or chills. No cough or sputum production. No nausea vomiting abdominal pain or diarrhea. Laboratory test showed WBC 6.3 hemoglobin 10.6 and platelets 146 Sodium 138 potassium 4.8 chloride 107 bicarb is 21 BUN 38 and creatinine 2.26 and blood sugar is 177. GFR 27. Calcium 8.1. Troponin 0.204, 0.183 and proBNP is 4080. TSH level is 3.25. Chest x-ray showed no acute cardiopulmonary process/disease. Review of Systems Constitutional: Patient denies any fever or chills . no Generalized weakness. Abdomen: Patient denied any nausea or vomiting or abd. pain Cardiovascular: Patient does complain of intermittent chest pains and shortness of breath.. Lightheadedness. No palpitations. No leg swelling. Respiratory: patient denied any cough . no sputum production. Positive for shortness of breath Neurologic: Patient denied any numbness or tingling headache. Musculoskeletal: Patient denies any complaints of joint swelling or deformity. Skin: Negative Psychiatric: Negative Endocrine: No heat or cold intolerance. No recent weight gain. Genitourinary: No dysuria or hematuria. All other 14 point ROS negative except the above Past Medical History Past Medical History: Diabetes Mellitus, Hearing Disorder / Deafness, Hypertension, Osteoarthritis (OA), Renal Disease, Thyroid Disorder Additional Past Medical History / Comment(s): CHRONIC KIDNEY DISEASE, MACULAR DEGENERATION, NEUROPATHY - BOTH FEET, SOB w/exertion History of Any Multi-Drug Resistant Organisms: None Reported Past Surgical History: Appendectomy, Heart Catheterization, Joint Replacement Additional Past Surgical History / Comment(s): BILAT CATARACTS REMOVED WITH LENS IMPLANTS. COLONOSCOPY, TOTAL RIGHT HIP Past Anesthesia/Blood Transfusion Reactions: No Reported Reaction Past Psychological History: No Psychological Hx Reported Smoking Status: Never smoker Past Alcohol Use History: None Reported Additional Past Alcohol Use History / Comment(s): couple drinks per week Past Drug Use History: None Reported - Past Family History Mother Family Medical History: Cancer Medications and Allergies Home Medications Medication Instructions Recorded Confirmed Type Aspirin [Adult Low Dose Aspirin EC] 81 mg PO DAILY 12/19/21 02/01/23 History Cholecalciferol [Vitamin D3 (25 50 mcg PO DAILY 12/19/21 02/01/23 History Mcg = 1000 Iu)] Cyanocobalamin (Vitamin B-12) 1,000 mcg PO DAILY 12/19/21 02/01/23 History [Vitamin B-12] Insulin Aspart [NovoLOG Flexpen] 13 units SQ TID-W/MEALS 12/19/21 02/01/23 History Insulin Glargine,Hum.rec.anlog 26 unit SQ HS 12/19/21 02/01/23 History [Lantus Solostar Pen] Levothyroxine Sodium [Synthroid] 100 mcg PO DAILY 12/19/21 02/01/23 History Multivitamins, Thera [Multivitamin 1 tab PO DAILY 12/19/21 02/01/23 History (formulary)] Tamsulosin [Flomax] 0.4 mg PO HS 12/19/21 02/01/23 History allopurinoL [Zyloprim] 200 mg PO DAILY 12/19/21 02/01/23 History atenoloL [Tenormin] 25 mg PO DAILY 12/19/21 02/01/23 History Losartan [Cozaar] 50 mg PO DAILY 12/02/22 02/01/23 History Rosuvastatin [Crestor] 20 mg PO DAILY 12/02/22 02/01/23 History Acetaminophen Tab [Tylenol] 650 mg PO Q4HR PRN tab 01/29/23 02/01/23 Rx Sennosides-Docusate Sodium 2 tab PO HS PRN 02/01/23 02/01/23 History [Senokot-S] Allergies Allergy/AdvReac Type Severity Reaction Status Date / Time albuterol Allergy Rash/Hives Verified 02/01/23 20:35 Physical Exam Vitals: Vital Signs Temp Pulse Resp BP Pulse Ox 02/02/23 10:00 74 16 143/78 97 02/02/23 09:00 73 20 149/77 96 02/02/23 08:42 96 02/02/23 08:00 75 19 165/87 95 02/02/23 07:30 71 17 152/72 97 02/02/23 07:00 63 19 152/72 99 02/02/23 06:30 65 15 160/69 98 02/02/23 06:00 65 17 160/74 99 02/02/23 05:30 65 19 167/54 99 02/02/23 05:00 66 14 98 02/02/23 04:30 61 17 166/88 98 02/02/23 04:00 60 19 174/83 99 02/02/23 03:50 61 14 99 02/02/23 03:40 61 21 174/83 99 02/02/23 03:33 16 02/02/23 03:30 58 L 18 171/86 99 02/02/23 03:20 58 L 21 171/86 99 02/02/23 03:10 60 16 171/86 80 L 02/02/23 03:00 54 L 18 95 02/02/23 02:50 58 L 17 95 02/02/23 02:40 59 L 16 96 02/02/23 02:30 60 18 95 02/02/23 02:20 61 21 164/84 95 02/02/23 02:10 58 L 12 164/84 93 L 02/02/23 02:00 57 L 22 164/84 95 02/02/23 01:50 56 L 18 96 02/02/23 01:40 21 96 02/02/23 01:30 58 L 20 170/81 96 02/02/23 01:20 56 L 19 170/81 95 02/02/23 01:10 54 L 15 170/81 96 02/02/23 01:00 54 L 8 L 166/84 97 02/02/23 00:50 53 L 7 L 166/84 96 02/02/23 00:40 54 L 3 L 166/84 07/17/23 00:30 54 L 7 L 151/78 96 02/02/23 00:20 55 L 9 L 145/79 93 L 02/02/23 00:10 54 L 15 145/79 97 02/02/23 00:00 56 L 16 147/70 95 02/01/23 23:50 56 L 6 L 147/70 95 02/01/23 23:40 54 L 14 151/82 94 L 02/01/23 23:30 55 L 17 151/82 95 02/01/23 23:20 54 L 22 97 02/01/23 23:10 55 L 20 155/75 93 L 02/01/23 23:00 53 L 19 163/74 96 02/01/23 22:50 53 L 15 96 02/01/23 22:41 19 02/01/23 22:40 54 L 17 96 02/01/23 22:36 54 L 18 166/78 96 02/01/23 22:30 56 L 23 166/78 97 02/01/23 22:20 55 L 20 96 02/01/23 22:10 53 L 19 155/78 96 02/01/23 22:00 54 L 17 98 02/01/23 21:50 56 L 21 98 02/01/23 21:48 98.7 F 54 L 28 H 167/74 97 02/01/23 20:50 56 L 18 154/76 97 02/01/23 19:37 56 L 18 136/60 97 02/01/23 18:41 65 15 128/60 95 02/01/23 17:42 55 L 17 122/86 94 L 02/01/23 17:09 36 L 17 103/46 94 L 02/01/23 16:19 98.1 F 41 L 18 121/70 97 Intake and Output 02/01/23 02/02/23 02/02/23 22:59 06:59 14:59 Intake Total 100 Output Total 0 650 Balance 0 -650 100 Intake: Oral 100 Output: Urine 0 650 Other: Voiding Method Toilet # Voids 3 # Bowel Movements 1 Weight 140.16 kg 145.6 kg PHYSICAL EXAMINATION: Patient is lying in the bed comfortably, no acute distress, awake alert and oriented.. Morbidly obese. HEENT: Normocephalic. Neck is supple. Pupils reactive. Nostrils clear. Oral cavity is moist. Neck reveals no JVD, carotid bruits, or thyromegaly. CHEST EXAMINATION: Trachea is central. Symmetrical expansion. Lung guerin clear to auscultation and percussion. CARDIAC: Normal S1, S2 with no gallops. No murmurs. ABDOMEN: Soft. Bowel sounds present. Nontender. No organomegaly. No abdominal bruits. Extremities: reveal no edema. No clubbing or cyanosis Neurologically awake, alert, oriented x3 with well-coordinated movements. No focal deficits noted Skin: No rash or skin lesions. Psychiatric: Coperative. Nonsuicidal, Musculoskeletal: No joint swelling or deformity. Normal range of motion. Results CBC & Chem 7: 02/02/23 07:02/02/23 07: Labs: Abnormal Lab Results - Last 24 Hours (Table) 02/01/23 02/01/23 02/01/23 Range/Units 16:53 16:53 16:53 RBC 3.26 L (4.30-5.90) m/uL Hgb 10.6 L (13.0-17.5) gm/dL Hct 33.1 L (39.0-53.0) % MCV 101.4 H (80.0-100.0) fL Plt Count 146 L (150-450) k/uL Lymphocytes # 0.8 L (1.0-4.8) k/uL Chloride (98-107) mmol/L Carbon Dioxide 21 L (22-30) mmol/L BUN 38 H (9-20) mg/dL Creatinine 2.26 H (0.66-1.25) mg/dL Glucose 177 H (74-99) mg/dL POC Glucose (mg/dL) (70-110) mg/dL Calcium 8.1 L (8.4-10.2) mg/dL AST 76 H (17-59) U/L Troponin I 0.204 H* (0.000-0.034) ng/mL Total Protein 6.1 L (6.3-8.2) g/dL Albumin 3.2 L (3.5-5.0) g/dL 02/01/23 02/02/23 02/02/23 Range/Units 21:35 07:26 07:26 RBC 3.27 L (4.30-5.90) m/uL Hgb 10.4 L (13.0-17.5) gm/dL Hct 33.6 L (39.0-53.0) % MCV 102.8 H (80.0-100.0) fL Plt Count (150-450) k/uL Lymphocytes # 0.9 L (1.0-4.8) k/uL Chloride 110 H (98-107) mmol/L Carbon Dioxide 21 L (22-30) mmol/L BUN 33 H (9-20) mg/dL Creatinine 1.97 H (0.66-1.25) mg/dL Glucose 136 H (74-99) mg/dL POC Glucose (mg/dL) 159 H (70-110) mg/dL Calcium 8.0 L (8.4-10.2) mg/dL AST (17-59) U/L Troponin I (0.000-0.034) ng/mL Total Protein (6.3-8.2) g/dL Albumin (3.5-5.0) g/dL 02/02/23 Range/Units 07:56 RBC (4.30-5.90) m/uL Hgb (13.0-17.5) gm/dL Hct (39.0-53.0) % MCV (80.0-100.0) fL Plt Count (150-450) k/uL Lymphocytes # (1.0-4.8) k/uL Chloride (98-107) mmol/L Carbon Dioxide (22-30) mmol/L BUN (9-20) mg/dL Creatinine (0.66-1.25) mg/dL Glucose (74-99) mg/dL POC Glucose (mg/dL) (70-110) mg/dL Calcium (8.4-10.2) mg/dL AST (17-59) U/L Troponin I 0.183 H* (0.000-0.034) ng/mL Total Protein (6.3-8.2) g/dL Albumin (3.5-5.0) g/dL Thrombosis Risk Factor Assmnt - DVT/VTE Prophylaxis DVT/VTE Prophylaxis: Pharmacologic Prophylaxis ordered Assessment and Plan Assessment: Symptomatic bradycardia. EKG showed second-degree heart block Mobitz type II. Status post transcatheter tricuspid aortic valve replacement on 01/28/2023 due to severe aortic stenosis. Elevated troponin level possible type II [place]. Macrocytic anemia with hemoglobin 10.6 on admission Chronic kidney disease stage IV with baseline creatinine level 1.9 Elevated BNP level without other evidence of CHF. Hypertension Diabetes type 2 Osteoarthritis Hearing disorder/deafness Hypothyroidism History of gout Morbid obesity BMI 47.4. DVT prophylaxis with heparin subcu Plan: Patient will be continued on telemetry monitoring. Atenolol is on hold. TSH level is within normal limits. Cardiology is planning for pacemaker placement if he continues to have significant heart block. Continue to monitor the patient in the ICU. Continue the home medications and insulin sliding scale for better blood sugar c ontrol. Prognosis is guarded at this time. Follow-up closely. Time with Patient: Greater than 30
[2023-02-02] MEDS: TAMSULOSIN 0.4 MG CAP.ER.24H PO SCH (21:01)
[2023-02-02] MEDS: INSULIN DETEMIR (LEVEMIR) 100 UNIT/ML SYR SQ SCH (21:05)
[2023-02-02] MEDS: HEPARIN SODIUM,PORCINE/PF 5,000 UNIT/0.5 ML SYRINGE SQ SCH (23:09)
[2023-02-03 03:53] LABS: Basophils % (A) 0 %; Eosinophils # (A) 0.1 k/uL (0-0.7); Eosinophils % (A) 2 %; HCT 32.5 % (39.0-53.0); HGB 10.3 gm/dL (13.0-17.5); Lymphocytes % (A) 13 %; MCH 31.3 pg (25.0-35.0); MCHC 31.6 g/dL (31.0-37.0); Mean Platelet Volume 8.9; Monocytes # (A) 0.6 k/uL (0-1.0); Monocytes % (A) 8 %; Neutrophils # (A) 5.6 k/uL (1.3-7.7); Neutrophils % (A) 75 %; Platelet Count 154 k/uL (150-450); RBC 3.28 m/uL (4.30-5.90); RDW 14.2 % (11.5-15.5); WBC 7.4 k/uL (3.8-10.6)
[2023-02-03 04:23] LABS: African American GFR (CKD) 39 (>60 ml/min/1.73 sqM); Anion Gap 7 mmol/L; Blood Urea Nitrogen 29 mg/dL (9-20); Calcium 8.5 mg/dL (8.4-10.2); Carbon Dioxide 22 mmol/L (22-30); Chloride 108 mmol/L (98-107); Glucose 136 mg/dL (74-99); Magnesium 1.9 mg/dL (1.6-2.3); Non-African American GFR(CKD) 34 (>60 ml/min/1.73 sqM); Potassium 4.7 mmol/L (3.5-5.1); Sodium 137 mmol/L (137-145)
[2023-02-03] MEDS: LEVOTHYROXINE 100 MCG TAB PO SCH (05:57)
[2023-02-03 06:40] LABS: Glucose,Whole Blood 137 mg/dL (70-110)
[2023-02-03] MEDS: INSULIN ASPART (NovoLOG) 100 UNIT/ML VIAL SQ SCH ×4 (06:44→20:25)
[2023-02-03] MEDS ORDERED: SODIUM CHLORIDE 0.9% 1,000 ML IV SCH ×3 (08:00→09:00)
[2023-02-03] MEDS: DOPamine DRIP 800 MG in DEXTROSE/WATER 1 250ML.BAG IV SCH (08:45)
[2023-02-03] MEDS: ASPIRIN 81 MG PO SCH (08:51)
[2023-02-03] MEDS: HEPARIN SODIUM,PORCINE/PF 5,000 UNIT/0.5 ML SYRINGE SQ SCH ×3 (08:51→23:21)
[2023-02-03] MEDS: MULTIVITAMINS, THERA 1 EACH TAB PO SCH (08:51)
[2023-02-03] MEDS: ATORVASTATIN 40 MG TAB PO SCH (08:51)
[2023-02-03] MEDS: allopurinoL 100 MG TAB PO SCH (08:51)
[2023-02-03] MEDS: CHOLECALCIFEROL 25 MCG (1000 IU) TABLET PO SCH (08:51)
[2023-02-03] MEDS: CYANOCOBALAMIN 500 MCG TAB PO SCH (08:52)
--- NOTE | 2023-02-03 09:07 | P.PN ---
Subjective HISTORY OF PRESENTING ILLNESS Patient is pleasant 73-year-old male with history of severe aortic stenosis status post transcatheter aortic valve replacement 01/28/2023, hypertension, hyperlipidemia, diabetes mellitus type 2, hypothyroidism, CAD, BPH, anemia, gout. Patient follows in the office with Dr. Yu. Patient has been having progressive dyspnea on exertion and found to have severe aortic stenosis. He underwent workup with heart catheterization showing no significant obstructive disease and eventually underwent transcatheter aortic valve replacement with a 34 mm Evolute Fx 01/28. Patient did well postoperatively and had some mild sinus bradycardia heart rates in the 40s to 50s and was asymptomatic and therefore discharged home on 01/29. He had been doing fairly well however had an episode at lunch where he got hypoglycemic and then got lightheaded and short of breath. He noted his heart rate was in the 30s and 40s and presented to emergency department and was found to be in second-degree type 2 block with prolonged DE interval. His atenolol was discontinued and heart rates mainly in the 60s and 70s however still occasionally having second-degree block. Troponins noted to be mildly elevated. He states he has been having occasional 10-15 minutes of left-sided chest pain not associated with any shortness breath or nausea. Does not occur with any exertion. He admits this may be positional from prior hospitalization. 02/03 Patient seen and examined. Patient had more significant bradycardia yesterday and therefore dopamine was attempted however developed chest pressure with this and therefore was discontinued. Troponin however noticed be decreasing. He still has had significant second-degree type II AV block and atenolol has been discontinued. PHYSICAL EXAMINATION Vital signs reviewed. CONSTITUTIONAL: No apparent distress. HEENT: Head is normocephalic. Pupils are equal, round. Sclerae anicteric. Mucous membranes of the mouth are moist. No JVD. No carotid bruit. CHEST EXAMINATION: Lungs are clear to auscultation. No chest wall tenderness is noted on palpation or with deep breathing. HEART EXAMINATION: Regular rate and rhythm. S1, S2 heard. No murmurs, gallops or rub. ABDOMEN: Soft, nontender. Positive bowel sounds. EXTREMITIES: 2+ peripheral pulses, no lower extremity edema and no calf tender ness. NEUROLOGIC EXAMINATION: Patient is awake, alert and oriented x3. ASSESSMENT 1. Symptomatic bradycardia, second-degree type II heart block likely related to recent transcatheter valve replacement. Possible component of atenolol 2. Severe aortic stenosis status post transcatheter valve replacement 01/28 3. Hypertension 4. Non-STEMI, likely type II mechanism 5. Atypical chest pain 6. Diabetes mellitus type 2 PLAN Since still having significant second-degree type II block despite disc ontinuation of atenolol. Discussed risks and benefits of permanent pacemaker and patient agreeable. Patient not having any further chest pain episodes and continue current regimen. Objective - Vital Signs Vital signs: Vital Signs Temp 97.5 F L 02/03/23 04:00 Pulse 57 L 02/03/23 07:00 Resp 15 02/03/23 07:00 BP 151/79 02/03/23 07:00 Pulse Ox 95 02/03/23 07:00 FiO2 Intake & Output 02/02/23 02/03/23 02/03/23 18:59 06:59 18:59 Intake Total 113.65 Output Total 650 1725 150 Balance -536.35 -1725 -150 Weight 142 kg Intake: Intake, IV Titration 13.65 Amount DOPamine DRIP 800 mg In 13.65 Dextrose/Water 1 250ml. bag @ 5 MCG/KG/MIN 13.65 mls/hr IV .[id number] [facility] Rx #:[id number] Oral 100 Output: Urine 650 1725 150 Other: Voiding Method Toilet Toilet # Voids 3 0 1 # Bowel Movements 3 - Labs CBC & Chem 7: 02/03/23 03:28 02/03/23 03:28 Labs: Abnormal Lab Results - Last 24 Hours (Table) 02/02/23 02/02/23 02/02/23 Range/Units 06:00 07:56 13:55 RBC (4.30-5.90) m/uL Hgb (13.0-17.5) gm/dL Hct (39.0-53.0) % Chloride (98-107) mmol/L BUN (9-20) mg/dL Creatinine (0.66-1.25) mg/dL Glucose (74-99) mg/dL POC Glucose (mg/dL) (70-110) mg/dL Hemoglobin A1c 6.5 H (<=6.0) % Troponin I 0.183 H* 0.106 H* (0.000-0.034) ng/mL 02/02/23 02/03/23 02/03/23 Range/Units 20:46 03:28 03:28 RBC 3.28 L (4.30-5.90) m/uL Hgb 10.3 L (13.0-17.5) gm/dL Hct 32.5 L (39.0-53.0) % Chloride 108 H (98-107) mmol/L BUN 29 H (9-20) mg/dL Creatinine 1.90 H (0.66-1.25) mg/dL Glucose 136 H (74-99) mg/dL POC Glucose (mg/dL) 156 H (70-110) mg/dL Hemoglobin A1c (<=6.0) % Troponin I (0.000-0.034) ng/mL 02/03/23 Range/Units 06:39 RBC (4.30-5.90) m/uL Hgb (13.0-17.5) gm/dL Hct (39.0-53.0) % Chloride (98-107) mmol/L BUN (9-20) mg/dL Creatinine (0.66-1.25) mg/dL Glucose (74-99) mg/dL POC Glucose (mg/dL) 137 H (70-110) mg/dL Hemoglobin A1c (<=6.0) % Troponin I (0.000-0.034) ng/mL
[2023-02-03 09:56] LABS: Vitamin B12 >1800.0 pg/mL (200.0-944.0)
[2023-02-03] MEDS ORDERED: LIDOCAINE 1% INJ 10MG/ML (20 ML MDV) ONE ×2 (10:28→11:00)
[2023-02-03] MEDS ORDERED: IOPAMIDOL-370 100ML BTL IVP ONE (11:05)
[2023-02-03] MEDS ORDERED: fentaNYL (PF) 50 MCG/ML 2 ML AMP ONE (11:08)
[2023-02-03] MEDS: MIDAZOLAM 2 MG/2 ML VIAL IVP ONE ×2 (11:10→13:28)
[2023-02-03] MEDS: fentaNYL (PF) 50 MCG/ML 2 ML AMP IVP ONE ×3 (11:10→12:07)
[2023-02-03] MEDS ORDERED: LIDOCAINE 1% INJ 10MG/ML (20 ML MDV) SQ ONE (11:14)
[2023-02-03] MEDS ORDERED: NITROGLYCERIN SL TABS 0.4 MG TAB SUBLINGUAL ONE ×2 (11:15)
[2023-02-03] MEDS: ceFAZolin 3 GM in SODIUM CHLORIDE 0.9% 100 ML IVPB PRN ×2 (11:16→11:20)
[2023-02-03] MEDS ORDERED: IV FLUID CONTINUATION 1,000 ML IV ONE (11:28)
[2023-02-03 15:06] LABS: Glucose,Whole Blood 126 mg/dL (70-110)
[2023-02-03] MEDS: ACETAMINOPHEN TAB 325 MG TAB PO PRN ×2 (16:30→20:34)
[2023-02-03 16:32] LABS: Glucose,Whole Blood 112 mg/dL (70-110)
--- NOTE | 2023-02-03 17:35 | XR ---
EXAMINATION TYPE: XR chest 1V portable DATE OF EXAM: 02/03/2023 5:23 PM COMPARISON: Chest x-ray 02/01/2023 TECHNIQUE: XR chest 1V portable . CLINICAL INDICATION:Male, 73 years old with history of Lead placement check; FINDINGS: Lungs/Pleura: Low lung volumes secondary to shallow inspiration. There is blunting of the left costop hrenic angle concerning for trace pleural effusion versus atelectasis. Left basilar atelectasis. Righ t lung is clear. No evidence for pneumothorax. Pulmonary vascularity: Unremarkable. Heart/mediastinum: Cardiomediastinal silhouette is unremarkable. Interval placement of endovascular s tent which projects over the right heart. Left-sided pacemaker with dual cardiac leads project over t he right atrium and right ventricle. Musculoskeletal: No acute osseous pathology. IMPRESSION: 1. Interval placement of left-sided pacemaker and endovascular stent. 2. Trace left pleural effusion versus atelectatic changes.
[2023-02-03] MEDS: ceFAZolin 3 GM in SODIUM CHLORIDE 0.9% 100 ML IVPB SCH ×2 (17:50→23:21)
[2023-02-03] MEDS: TAMSULOSIN 0.4 MG CAP.ER.24H PO SCH (20:23)
[2023-02-03] MEDS: INSULIN DETEMIR (LEVEMIR) 100 UNIT/ML SYR SQ SCH (20:23)
[2023-02-03 20:24] LABS: Glucose,Whole Blood 148 mg/dL (70-110)
[2023-02-04] MEDS: ACETAMINOPHEN TAB 325 MG TAB PO PRN (01:28)
[2023-02-04] MEDS: ceFAZolin 3 GM in SODIUM CHLORIDE 0.9% 100 ML IVPB SCH ×2 (05:26→11:26)
[2023-02-04] MEDS: LEVOTHYROXINE 100 MCG TAB PO SCH (05:41)
[2023-02-04 06:20] LABS: Glucose,Whole Blood 120 mg/dL (70-110)
[2023-02-04] MEDS: INSULIN ASPART (NovoLOG) 100 UNIT/ML VIAL SQ SCH ×2 (06:40→11:27)
[2023-02-04] MEDS ORDERED: ceFAZolin 1 GM in SODIUM CHLORIDE 0.9% IRRIG BTL 250 ML IRRIGATION PRN (07:00)
--- NOTE | 2023-02-04 08:18 | XR ---
EXAMINATION TYPE: XR chest 2V DATE OF EXAM: 02/04/2023 COMPARISON: 02/03/2023 INDICATION: Follow-up lead placement check TECHNIQUE: Frontal and lateral views of the chest are obtained. FINDINGS: The heart size is normal. The pulmonary vasculature is normal. The lungs are clear. There has been prior cardiac valve surgery. Pacemaker overlies left chest. Lead s are stable in position from comparison. No pneumothorax is evident. IMPRESSION: 1. No acute pulmonary process. 2. Pacemaker leads stable in position
[2023-02-04] MEDS: HEPARIN SODIUM,PORCINE/PF 5,000 UNIT/0.5 ML SYRINGE SQ SCH (08:36)
[2023-02-04] MEDS: MULTIVITAMINS, THERA 1 EACH TAB PO SCH (08:37)
[2023-02-04] MEDS: ATORVASTATIN 40 MG TAB PO SCH (08:37)
[2023-02-04] MEDS: CYANOCOBALAMIN 500 MCG TAB PO SCH (08:37)
[2023-02-04] MEDS: CHOLECALCIFEROL 25 MCG (1000 IU) TABLET PO SCH (08:37)
[2023-02-04] MEDS: allopurinoL 100 MG TAB PO SCH (08:37)
[2023-02-04] MEDS: ASPIRIN 81 MG PO SCH (08:37)
--- NOTE | 2023-02-04 08:42 | CA ---
Transthoracic Echo Report Name: Eduardo Greenfield Age: 73 Gender: M : 1950 Exam Date: 02/02/2023 14:02 Exam Location: [facility] Ht (in): 69 Wt (lb): 320 Ordering Physician: Venancio Randall DO ([email or web address]) Attending/Referring Phys: Detective Chief Layo Steinberg Procedure CPT: Indications: Chest Pain Cardiac Hx: Technical Quality: Fair Contrast 1: Total Dose (mL): Contrast 2: Total Dose (mL): MEASUREMENTS (Male / Female) Normal Values 2D ECHO LV Diastolic Diameter PLAX 4.3 cm 4.2 - 5.9 / 3.9 - 5.3 cm LV Systolic Diameter PLAX 3.2 cm IVS Diastolic Thickness 1.2 cm 0.6 - 1.0 / 0.6 - 0.9 cm LVPW Diastolic Thickness 1.5 cm 0.6 - 1.0 / 0.6 - 0.9 cm LV Relative Wall Thickness 0.6 LVOT Diameter 1.9 cm Aortic Root Diameter 3.4 cm DOPPLER AV Peak Velocity 196.7 cm/s AV Peak Gradient 15.5 mmHg LVOT Peak Velocity 93.4 cm/s LVOT Peak Gradient 3.5 mmHg AV Area Cont Eq pk 1.4 cm??? TR Peak Velocity 205.8 cm/s TR Peak Gradient 16.9 mmHg Right Ventricular Systolic Press 21.9 mmHg FINDINGS Left Ventricle Normal LV size and systolic function. Estimated LVEF 65%, mild concentric LVH. No obvious regional wall motion abnormality Right Ventricle Right Atrium Left Atrium Mitral Valve Aortic Valve 34 mm Evolute TAVR valve in place. Trace central and trace paravalvular leak is appreciated. Peak aortic valve velocity 1.9 m/s. Mean gradient proximately 12 mmHg Tricuspid Valve Pulmonic Valve Pericardium Aorta CONCLUSIONS Limited Echo Normal LV size and systolic function. LVEF estimated at 60-65% No obvious regional wall motion abnormality Mild concentric LVH 35mm evolute TAVR valve in place Peak aortic valve velocity 1.9 m/s. Mean gradient proximately 12 mmHg Previewed by: Dr Gilson Peralta (Electronically Signed) Final Date: 03 February 2023 10:21
--- NOTE | 2023-02-04 09:06 | CE ---
CARDIAC ELECTROPHYSIOLOGY REPORT PROCEDURE PERFORMED: Dual-chamber permanent pacemaker from left infraclavicular approach. PERFORMED BY: Dr. Remi Yu. MODERATE CONSCIOUS SEDATION TIME: 2 hours and 40 minutes. CLINICAL INFORMATION: Mr. Eduardo Greenfield is a 73-year-old gentleman with obesity, hypertension, diabetes, and hyperlipidemia with severe aortic stenosis, who about 6 days ago had aortic valve implant from percutaneous approach uneventfully. He went home and came back with a complete heart block, heart rate in the 30s. He has been hospitalized, and now, he is in second-degree heart block with a long VR interval, and also, right bundle branch block pattern. Given his symptomatic bradycardia with complete heart block, he was advised to have a permanent pacemaker. He was seen and evaluated by Dr. Randall. PREPROCEDURE DIAGNOSIS: Complete heart block with sick sinus syndrome. POSTPROCEDURE DIAGNOSIS: Complete heart block with sick sinus syndrome. DESCRIPTION OF PROCEDURE: Under strict aseptic precautions and local anesthesia, using a Micropuncture needle technique, access was obtained to the left axillary vein. A blunt dissection was performed with a linear incision of about 2-1/2 inches medial and parallel to the left deltopectoral groove. Good hemostasis was secured. There was a lot of oozing and it required quite some time to secure good hemostasis. A second access point was also obtained. Subsequently, a 7-[place] introducer was advanced over the wires. The right ventricular lead was positioned in the apex. Good thresholds and sensitivities were obtained. Subsequently, a second introducer was also advanced and positioned over the wire. Atrial lead was also positioned. I had a lot of difficulty getting a good position for the atrial lead. The sensing was very poor in any position. I spent nearly an hour and a half trying to get position for the atrial lead. Following this, I checked the ventricular lead and noted that the ventricular lead sensitivity was down to less than 2.5. I, therefore, went back and repositioned both the leads and considerable amount of time was taken for this. Eventually, I got a decent P-wave for the atrial lead, but a high a threshold for the atrial pacing, which was 2.5 V. For the right ventricular lead, I was able to get an R-wave of about 5.1 mV with a unipolar configuration, but the pacing threshold was very good at 1.0 V. considerable time and effort were devoted to positioning the leads. Both the leads were checked in NAMIBIAN and SOSA projections and also with a 10 V pacing. The pocket was then closed in two layers. Good hemostasis was secured, and the patient was sent to the room in a stable condition. The details were discussed with the patient and family, and also, the considerable effort and time it took to get lead positioning was explained to them. PACEMAKER INFORMATION: Pulse generator: 1. Model #[id number]. 2. Serial #[id number]. 3. Sales And Service Specialist: [employer]. Right atrial lead: 1. Sales And Service Specialist: [employer]. 2. Model #4076-52. 3. Serial #[id number]. Right ventricular lead: 1. Sales And Service Specialist: [employer]. 2. Model 4076-58. 3. Serial #[id number]. 4. Positioned in the RV apex. Right atrial P waves were 1.9 mV, pacing impedance was 399 ohms, and the threshold was 2.5 V at 0.4 milliseconds. For the right ventricle, the R-waves were 5.1 mV in the unipolar configuration. Pacing impedance was 931 ohms. The pacing threshold was 1.2 V at 0.4 milliseconds. The pacemaker settings were low rate of 55, high rate of 110, more was DDD. Pacing interval, AV paced, AV interval was 180 mV. Sensed AV interval was 150 mV. The patient tolerated the procedure well. There were no complications. NATASHA / CLAUDIAN: [id number] /
--- NOTE | 2023-02-04 09:41 | P.PN ---
Subjective HISTORY OF PRESENTING ILLNESS Patient is pleasant 73-year-old male with history of severe aortic stenosis status post transcatheter aortic valve replacement 01/28/2023, hypertension, hyperlipidemia, diabetes mellitus type 2, hypothyroidism, CAD, BPH, anemia, gout. Patient follows in the office with Dr. Yu. Patient has been having progressive dyspnea on exertion and found to have severe aortic stenosis. He underwent workup with heart catheterization showing no significant obstructive disease and eventually underwent transcatheter aortic valve replacement with a 34 mm Evolute Fx 01/28. Patient did well postoperatively and had some mild sinus bradycardia heart rates in the 40s to 50s and was asymptomatic and therefore discharged home on 01/29. He had been doing fairly well however had an episode at lunch where he got hypoglycemic and then got lightheaded and short of breath. He noted his heart rate was in the 30s and 40s and presented to emergency department and was found to be in second-degree type 2 block with prolonged ID interval. His atenolol was discontinued and heart rates mainly in the 60s and 70s however still occasionally having second-degree block. Troponins noted to be mildly elevated. He states he has been having occasional 10-15 minutes of left-sided chest pain not associated with any shortness breath or nausea. Does not occur with any exertion. He admits this may be positional from prior hospitalization. 02/03 Patient seen and examined. Patient had more significant bradycardia yesterday and therefore dopamine was attempted however developed chest pressure with this and therefore was discontinued. Troponin however noticed be decreasing. He still has had significant second-degree type II AV block and atenolol has been discontinued. 02/04 Patient seen and examined. Patient underwent dual-chamber permanent pacemaker yesterday. Telemetry shows atrial sensed ventricular paced rhythm without any significant block. Denies any chest pain or pressure. Echo showed preserved EF without significant valvular issues. Interrogation from this morning still pending. PHYSICAL EXAMINATION Vital signs reviewed. CONSTITUTIONAL: No apparent distress. HEENT: Head is normocephalic. Pupils are equal, round. Sclerae anicteric. Mucous membranes of the mouth are moist. No JVD. No carotid bruit. CHEST EXAMINATION: Lungs are clear to auscultation. No chest wall tenderness is noted on palpation or with deep breathing. HEART EXAMINATION: Regular rate and rhythm. S1, S2 heard. No murmurs, gallops or rub. ABDOMEN: Soft, nontender. Positive bowel sounds. EXTREMITIES: 2+ peripheral pulses, no lower extremity edema and no calf tenderness. NEUROLOGIC EXAMINATION: Patient is awake, alert and oriented x3. ASSESSMENT 1. Symptomatic bradycardia, second-degree type II heart block s/p dual chamber PPM 2. Severe aortic stenosis status post transcatheter valve replacement 01/28 3. Hypertension 4. Non-STEMI, likely type II mechanism 5. Atypical chest pain 6. Diabetes mellitus type 2 PLAN Add back atenolol and can you with remainder of medications. Await interrogation. If no significant abnormalities, patient may be discharged home today. S Objective - Vital Signs Vital signs: Vital Signs Temp 97.5 F L 02/04/23 08:00 Pulse 76 02/04/23 09:00 Resp 22 02/04/23 09:00 BP 158/75 02/04/23 09:00 Pulse Ox 96 02/04/23 09:00 FiO2 Intake & Output 02/03/23 02/04/23 02/04/23 18:59 06:59 18:59 Intake Total 1425 1175 20 Output Total 1050 1100 400 Balance 375 75 -380 Weight 143 kg Intake: IV 825 1175 20 Sodium Chloride 0.9% 1, 375 975 20 000 ml @ 75 mls/hr IV . [id number] [facility] Rx#:[id number] ceFAZolin 3 gm In Sodium 100 200 Chloride 0.9% 100 ml @ 100 mls/hr IVPB ONCE PRN Rx#:[id number] Oral 600 Output: Urine 1050 1100 400 Stool 0 0 Other: Voiding Method Toilet Toilet Toilet # Voids 0 1 # Bowel Movements 0 0 - Labs CBC & Chem 7: 02/03/23 03:28 02/03/23 03:28 Labs: Abnormal Lab Results - Last 24 Hours (Table) 02/03/23 02/03/23 02/03/23 Range/Units 03:28 15:04 16:31 POC Glucose (mg/dL) 126 H 112 H (70-110) mg/dL Vitamin B12 >1800.0 H (200.0-944.0) pg/mL 02/03/23 02/04/23 Range/Units 20:22 06:19 POC Glucose (mg/dL) 148 H 120 H (70-110) mg/dL Vitamin B12 (200.0-944.0) pg/mL
[2023-02-04] MEDS ORDERED: atenoloL 25 MG TAB PO SCH (10:00)
[2023-02-04 11:18] LABS: Glucose,Whole Blood 198 mg/dL (70-110)
[2023-02-04 13:10] VITALS: TEMP 97.6
[2023-02-04 14:13] VITALS: BP 128/67
[2023-02-04 15:52] VITALS: PULSE 71; RESP 7
== END 2023-02-04 15:55 | disposition home or self-care (01) | DRG 242 ==
LOC: EC 16:18 → 2SICU 18:55
PROVIDERS: ADMIT Internal Medicine; ATTEND Internal Medicine
PROC: 0JH606Z Insertion of Pacemaker, Dual Chamber into Chest Subcutaneous Tissue and Fascia, Open Approach (ICD-10-PCS; principal; 2023-02-04)
PROC: 02H63JZ Insertion of Pacemaker Lead into Right Atrium, Percutaneous Approach (ICD-10-PCS; principal; 2023-02-04)
PROC: 02HK3JZ Insertion of Pacemaker Lead into Right Ventricle, Percutaneous Approach (ICD-10-PCS; principal; 2023-02-04)
DX: I97.190 Other postprocedural cardiac functional disturbances following cardiac surgery (principal); I21.A1 Myocardial infarction type 2; N18.4 Chronic kidney disease, stage 4 (severe); Z68.42 Body mass index [BMI] 45.0-49.9, adult; I44.1 Atrioventricular block, second degree; I45.10 Unspecified right bundle-branch block; I35.0 Nonrheumatic aortic (valve) stenosis; N40.0 Benign prostatic hyperplasia without lower urinary tract symptoms; I25.10 Atherosclerotic heart disease of native coronary artery without angina pectoris; I12.9 Hypertensive chronic kidney disease with stage 1 through stage 4 chronic kidney disease, or unspecified chronic kidney disease; H91.90 Unspecified hearing loss, unspecified ear; E78.5 Hyperlipidemia, unspecified; T44.7X5A Adverse effect of beta-adrenoreceptor antagonists, initial encounter; E11.40 Type 2 diabetes mellitus with diabetic neuropathy, unspecified; E11.22 Type 2 diabetes mellitus with diabetic chronic kidney disease; E03.9 Hypothyroidism, unspecified; D53.9 Nutritional anemia, unspecified; D63.1 Anemia in chronic kidney disease; E66.01 Morbid (severe) obesity due to excess calories; R79.89 Other specified abnormal findings of blood chemistry; M19.90 Unspecified osteoarthritis, unspecified site; M10.9 Gout, unspecified; E11.649 Type 2 diabetes mellitus with hypoglycemia without coma; H35.30 Unspecified macular degeneration; Z96.641 Presence of right artificial hip joint; Z88.8 Allergy status to other drugs, medicaments and biological substances; Z95.2 Presence of prosthetic heart valve; Z79.899 Other long term (current) drug therapy; Z79.890 Hormone replacement therapy; Z79.82 Long term (current) use of aspirin; Z79.4 Long term (current) use of insulin
CPT/HCPCS: 33208; 36415; 71045; 71046; 80048; 80053; 82607; 82747; 83036; 83735; 83880; 84443; 84484; 85025; 85610; 85730; 93005; 93308; 94760; 99291

== ENCOUNTER 2023-04-21 11:05 | Day surgery (SDC) | payer MEDICARE, OTHER ==
[2023-04-16 16:16] VITALS: BMI 45.4
[~2023-04-21 11:05] MED LIST changes: -DEXAMETHASONE SOD PHOSPHATE 4 MG/ML 1 ML VIAL IV ONE; -LIDOCAINE 1% (10MG/ML) FOR IV START INTRADERMA PRN; -ONDANSETRON 4 MG/2 ML VIAL IVP ONE; +TRANEXAMIC 1,000 MG/100ML-NACL 1,000 MG in SALINE 1 100ML.BAG IVPB PRN; -TRANEXAMIC ACID IN NACL,ISO-OS 1,000 MG in SALINE 1 100ML.BAG IVPB PRN; -fentaNYL (PF) 50 MCG/ML 2 ML AMP IV PRN
[2023-04-21] MEDS ORDERED: LACTATED RINGERS 1,000 ML IV ONE ×2 (12:22→15:15)
[2023-04-21] MEDS ORDERED: ONDANSETRON 4 MG/2 ML VIAL ONE (12:25)
[2023-04-21] MEDS ORDERED: DEXAMETHASONE SOD PHOSPHATE 4 MG/ML 1 ML VIAL IVP ONE (12:49)
[2023-04-21 12:51] LABS: Glucose,Whole Blood 169 mg/dL (70-110)
[2023-04-21] MEDS ORDERED: MIDAZOLAM 2 MG/2 ML VIAL IVP ONE (13:11)
[2023-04-21] MEDS ORDERED: fentaNYL (PF) 50 MCG/ML 2 ML AMP IVP ONE (13:11)
--- NOTE | 2023-04-21 13:44 | P.ANPRN ---
Procedure Note - Anesthesia - Nerve Block Performed Left Adductor Canal Infusion Time Out Performed: Yes (1310) Date of Procedure: 04/21/23 Procedure Start Time: 13:11 Procedure Stop Time: 13:16 Location of Patient: PreOp Indication: Acute Post-Operative Pain, Requested by Surgeon Specifically requested for management of pain by DrKaitlin: Jefry Norman Sedation Type: Sedate with meaningful contact maintained Preparation: Sterile Prep, Sterile Dressing Position: Supine Catheter Depth at Skin (cm): 7 Catheter: Indwelling Needle Types: Manjeet Needle Gauge: 18 Ultrasound used to visualize needle placement: Yes Ultrasound used to observe medication spread: Yes Injectate: 0.5% Ropivacaine (see comment for volume) (15cc + 10cc nacl pf) Blood Aspirated: No Pain Paresthesia on Injection Noted: No Resistance on Injection: Normal Image Stored and Saved: Yes Events: Uneventful and Well Tolerated
--- NOTE | 2023-04-21 13:46 | P.ANPRN ---
Procedure Note - Anesthesia - Nerve Block Performed Left iPack Single Time Out Performed: Yes (1310) Date of Procedure: 04/21/23 Procedure Start Time: 13:17 Procedure Stop Time: :22 Location of Patient: PreOp Indication: Acute Post-Operative Pain, Requested by Surgeon Specifically requested for management of pain by DrKaitlin: Jefry Norman Sedation Type: Sedate with meaningful contact maintained Preparation: Sterile Prep Position: Supine Catheter: None Needle Types: Pajunk Needle Gauge: 21 Ultrasound used to visualize needle placement: Yes Ultrasound used to observe medication spread: Yes Injectate: 0.5% Ropivacaine (see comment for volume) (15cc+ 10cc nacl pf) Blood Aspirated: No Pain Paresthesia on Injection Noted: No Resistance on Injection: Normal Image Stored and Saved: Yes Events: Uneventful and Well Tolerated
[2023-04-21] MEDS ORDERED: ONDANSETRON 4 MG/2 ML VIAL IVP PRN (14:07)
[2023-04-21] MEDS ORDERED: bisacodyL 10 MG SUPP RECTAL PRN (14:07)
[2023-04-21] MEDS ORDERED: MAGNESIUM HYDROXIDE 2,400 MG/30 ML CUP PO PRN (14:07)
[2023-04-21] MEDS ORDERED: NA PHOS,M-B/NA PHOS,DI-BA 133 ML ENEMA RECTAL PRN (14:07)
[2023-04-21] MEDS ORDERED: HYDROmorphone 0.5 MG/0.5 ML SYRINGE IVP PRN ×3 (14:07)
[2023-04-21] MEDS ORDERED: NALOXONE 0.4 MG/ML 1 ML VIAL IV PRN (14:07)
[2023-04-21] MEDS ORDERED: LIDOCAINE 2% INJ 20 MG/ML (2 ML VIAL) ONE (14:19)
[2023-04-21] MEDS ORDERED: NEOSTIGMINE 1 MG/ML 10 ML VIAL ONE (14:19)
[2023-04-21] MEDS ORDERED: SODIUM CHLORIDE 0.9% (PF) 10 ML VIAL ONE (14:19)
[2023-04-21] MEDS ORDERED: TRANEXAMIC 1,000 MG/100ML-NACL PREMIX BAG ONE (14:19)
[2023-04-21] MEDS ORDERED: SUCCINYLCHOLINE CHLORIDE 200 MG/10 ML VIAL IV ONE (14:19)
[2023-04-21] MEDS ORDERED: PROPOFOL 10 MG/ML 20 ML VIAL IV ONE (14:19)
[2023-04-21] MEDS ORDERED: hydrALAZINE HCL 20 MG/ML 1 ML VIAL ONE (14:19)
[2023-04-21] MEDS ORDERED: ROPIVACAINE 5 MG/ML 30 ML VIAL ONE (14:19)
[2023-04-21] MEDS ORDERED: HYDROmorphone (PF) 1 MG/ML ONE (14:19)
[2023-04-21] MEDS ORDERED: ceFAZolin 1,000 MG in SODIUM CHLORIDE 0.9% 1,000 ML IRRIGATION ONE (14:19)
[2023-04-21] MEDS ORDERED: GLYCOPYRROLATE 0.2 MG/ML 2 ML VIAL ONE (14:19)
[2023-04-21] MEDS ORDERED: MIDAZOLAM 2 MG/2 ML VIAL ONE (14:19)
[2023-04-21] MEDS ORDERED: fentaNYL (PF) 50 MCG/ML 2 ML AMP ONE (14:19)
[2023-04-21] MEDS ORDERED: ROCURONIUM 10 MG/ML (5 ML VIAL) IV ONE (14:19)
--- NOTE | 2023-04-21 15:29 | P.OP ---
Date of Procedure: 04/21/23 Preoperative Diagnosis: Severe osteoarthritis left knee Postoperative Diagnosis: Severe osteoarthritis left knee Procedure(s) Performed: Left total knee arthroplasty Implants: [employer] II CR Oxinium cruciate retaining femoral component size 6, left [employer] nonporous tibial baseplate size 5, left [employer] II, XLPE Deep Dished articular insert, size 9 mm, Size 5- 6, left [employer] Mary II resurfacing patellar component, oval, 32 mm All components were cemented using Palacos R bone cement The articulation is Oxinium on polyethylene Anesthesia: ANAI Surgeon: Jefry Norman Corporate Statistical Financial Analyst #1: Stella Oliva Estimated Blood Loss (ml): 100 Pathology: none sent Condition: stable Disposition: PACU Indications for Procedure: The patient's knee is end-stage, and conservative management has failed. The operation of knee replacement has been discussed at length in the office, as well as potential risks and complications. These are inclusive of, but not limited to: Infection, bleeding, scarring, discomfort, stiffness, blood vessel and nerve damage, need for further surgery, failure to relieve symptoms, persistence, recurrence, or worsening of problems, loosening, dislocation, wear, blood clot, pulmonary embolism, , gait dysfunction, stiffness, and other risks as discussed in the office. Patient elects to proceed and the consent form has been signed. Operative Findings: The operative findings are consistent with severe osteoarthritis the left knee Description of Procedure: The patient was seen in the preoperative area, the consent was reviewed and the operative site was marked with a skin marker. The patient verified the procedure and the operative site. An adductor canal pain catheter and an iPACK block were placed by anesthesia in the preoperative area. The patient was then brought to the operating room and positioned on the operating room table in the supine position. Preoperative antibiotics and a gram of tranexamic acid were given intravenously. A general anesthetic was administered by the anesthesia department. Care was taken to make sure that all pressure points were adequately padded. A tourniquet was placed on the upper thigh and the lower extremity was prepped with ChloraPrep and draped in usual sterile fashion. A universal time-out was then performed which confirmed the patient's name, surgical site, ALLERGIES, and consent. The lower extremity was then exsanguinated and tourniquet was inflated to 300 mmHg. A standard anterior midline approach to the knee was performed. The skin and subcutaneous tissue were sharply dissected down to the patellar tendon. A medial parapatellar arthrotomy was then performed. The knee was then extended, the patellar was everted, and the knee was flexed. The infra-patellar fat pad was removed in order to enhance exposure. The anterior horns of both menisci were excised, and a release was performed to the posterior medial aspect of the knee. On gross visual inspection, there was complete loss of articular cartilage in the medial and patellofemoral joint spaces. There was also significant cartilage damage in the lateral compartment. There were multiple periarticular osteophytes globally about the knee which were then removed with a Ronguer. The femoral canal was then opened with the 9.5 mm intramedullary drill. The 8 mm intramedullary danish was then inserted into the femoral canal with the distal femoral cutting guide set for 5 of valgus. The distal femoral cutting block was then pinned in place. The intramedullary danish was then removed, and the distal femur was then cut. The cutting block was then removed and the cut was checked for symmetry. The resected bone was then measured to co nfirm the appropriate distal femoral resection. Next, the sizing guide was then placed and set for 3 external rotation based off of the epicondylar axis and Manchester's line. Pins were then placed and the drill holes, and the femur was sized with the sizing stylus. The pins were then removed, and the sizing guide was then removed. The spikes of the appropriate size femoral block was then placed into the predrilled holes, and malleted into place. Two 45 mm pins were then placed into the fixation holes on the cutting block. An giana wing was then used to ensure there would be no notching with the anterior cut. The anterior condyles were cut without notching. The anterior chord cut was then performed, followed by the posterior cut, posterior chamfer cut, and the anterior chamfer cut. The collateral ligaments were protected during the entire process. The cutting block was then removed. Any remaining bone and osteophytes were removed from the femur with a Ronguer. Attention was then directed to the tibia. The remaining ACL was removed with a Ronguer, and the tibia was then gently subluxed forward with a large bent knee retractor. Any remaining menisci were excised. The posterior lateral corner was cauterized in order to coagulate the lateral geniculate artery. The extra medullary tibial cutting guide was then placed, set for the appropriate rotation, slope, and depth of resection. The proximal tibia cutting guide was then pinned in place. Proximal tibia was then cut and sized. A curved osteotome was then used to remove any posterior osteophytes from the distal femur. The femoral trial was placed. A narrow saw blade was then used to remove the anterior intracondylar femoral bone. The CR notch trial was then placed. The tibial trial was placed with the appropriate-sized insert. The knee was able to fully extend and flex to 130 and was stable throughout all range of motion. The knee was then extended and the patella was everted. Patella was then measured, and then using an osteotomy guide, the patella was cut at the appropriate level. The patellar component was sized. The patellar drill guide was placed and the patella was drilled. The patella trial was then placed. The knee was then taken through range of motion with the patella trial and the patella tracked normally using the no thumbs technique. The patella trial was then removed. The knee was then flexed and lug holes were drilled through the femoral trial and the femoral trial was then removed. The tibial was then re- exposed, and the tibial broach guide was then pinned in place after it was set for the appropriate rotation to allow for the most coverage without overhang. The tibia was then reamed and broached. The femoral canal was plugged with autologous bone. The cut surfaces of bone were then irrigated with pulsatile lavage. The knee was also irrigated with Irrisept solution. The components were then opened, the cement was mixed. Cement was placed on the backside of the femoral, tibial, and patellar components. Cement was then applied to the tibial surface and pressurized into the surface using finger pressurization technique. The tibial component was then applied and excess cement was removed after it was impacted securely noted to be flush with the cut surface. In similar fashion, the cement was applied to the cut femoral surface, pressurized and using finger pressurization the component was impacted in place. Excess cement was removed. The polyethylene spacer was then implanted and locked into position. Patellar component was then applied in a similar technique and the patellar clamp was used to hold patella in place while the cement hardened. The knee was held in full extension while the cement hardened. Once the cement had fully hardened, the knee was reinspected. Any other cement extrusion was removed the final range of motion testing showed range of motion from 0-130 with excellent stability, both medial and laterally and appropriate alignment of the leg. Patella tracked normally. After the cemented hardened, the tourniquet was released and hemostasis was obtained. A second gram of transexamic acid was given intravenously. The knee was again irrigated. The knee was again taken through range of motion and found to be stable throughout all range of motion of 0-130, and the patella tracked normally. The fascia was then closed with 0 Vicryl followed by #2 strata fix suture. The subcutaneous tissue was closed with 3-0 Vicryl and 3-0 strata fix. Exofin glue was used for the skin and placed with the knee in flexion. After the glue had dried, and Optafoam silver impregnated dressing was applied. A lightly compressive dressing was applied using web roll and Jorge wrap. Patient was then transferred to the stretcher and taken to recovery room in stable condition. Sponge and needle counts were correct. The broker assistant LOREE June was required due the complexity surgery and the need for a skilled surgical lead. She assisted in positioning, draping, retraction, and closure of the wound.
[2023-04-21] MEDS ORDERED: HYDROmorphone 0.5 MG/0.5 ML SYRINGE IVP ONE ×2 (16:16→17:24)
[2023-04-21] MEDS ORDERED: ROPIVACAINE 1,100 MG, SODIUM CHLORIDE 0.9% 500 ML 330 ML, EMPTY PAIN BALL 1 EACH MISCELLANE PRN ×2 (16:34)
--- NOTE | 2023-04-21 16:45 | XR ---
EXAMINATION TYPE: XR knee limited LT DATE OF EXAM: 04/21/2023 CLINICAL HISTORY: Right knee pain and arthritis status post total knee replacement. TECHNIQUE: Portable AP and crosstable lateral views of the right knee are obtained immediately posto peratively. COMPARISON: None FINDINGS: Metallic hardware from total right knee arthroplasty is seen and appears satisfactory in a lignment and position. There is evidence of recent surgery with diffuse subcutaneous and soft tissue swelling noted. IMPRESSION: METALLIC HARDWARE FROM TOTAL RIGHT KNEE ARTHROPLASTY IS SATISFACTORY IN ALIGNMENT.
[2023-04-21] MEDS: SODIUM CHLORIDE 0.9% 1,000 ML IV SCH (17:40)
[2023-04-21 17:47] LABS: Glucose,Whole Blood 233 mg/dL (70-110)
[2023-04-21] MEDS ORDERED: INSULIN ASPART (NovoLOG) 100 UNIT/ML VIAL SQ ONE (18:01)
[2023-04-21] MEDS: HYDROcodone/APAP 7.5-325MG 1 EACH TAB PO PRN (18:57)
[2023-04-21] MEDS ORDERED: INSULIN DETEMIR (LEVEMIR) 100 UNIT/ML SYR SQ SCH (21:00)
[2023-04-21] MEDS ORDERED: TAMSULOSIN 0.4 MG CAP.ER.24H PO SCH (21:00)
[2023-04-21] MEDS ORDERED: SENNOSIDES-DOCUSATE SODIUM 1 EACH TAB PO SCH (21:00)
[2023-04-21 21:04] LABS: Glucose,Whole Blood 229 mg/dL (70-110)
[2023-04-21] MEDS: LOSARTAN 25 MG TAB PO SCH (21:47)
[2023-04-21] MEDS: ASPIRIN 325 MG TAB PO SCH (21:47)
[2023-04-21] MEDS: ceFAZolin 3 GM in SODIUM CHLORIDE 0.9% 100 ML IVPB SCH (21:47)
[2023-04-22] MEDS: HYDROcodone/APAP 7.5-325MG 1 EACH TAB PO PRN ×3 (01:58→08:37)
[2023-04-22] MEDS: SODIUM CHLORIDE 0.9% 1,000 ML IV SCH (05:51)
[2023-04-22 06:20] LABS: Glucose,Whole Blood 186 mg/dL (70-110)
--- NOTE | 2023-04-22 06:28 | P.PN ---
Progress Note - Text Progress Note Date: 04/22/23 patient was seen and evaluated at bedside. Status post postoperative day 1 for left-sided total knee arthroplasty patient had adductor canal catheter for postop pain control. Patient rated pain at rest 5 out of 10 in severity. Patient describes pain is aching, throbbing type on the sides of the knee and back of the knee. Patient started walking with support. With activity patient pain levels are 6 out of 10 in severity. With the help of oral pain medications pain levels are tolerable. Patient denied any weakness/ numbness in lower extremities. patient denied any fever, pain over the catheter site. Physical exam: Patient vital signs stable Patient is alert awake oriented 3 responding to all questions appropriately Examination of the catheter site showed dressing intact, no leaking fluid around the catheter, no redness, no tenderness over the catheter insertion area. plan: status post postoperative day 1 for Left total knee arthroplasty with adductor canal catheter for pain control. Patient was discussed to continue the medication until the pump is completely empty and instructed the patient how to discontinue the catheter.
[2023-04-22] MEDS ORDERED: LEVOTHYROXINE 100 MCG TAB PO SCH (06:30)
[2023-04-22] MEDS: INSULIN ASPART (NovoLOG) 100 UNIT/ML VIAL SQ SCH ×2 (06:43→12:14)
[2023-04-22] MEDS: ceFAZolin 3 GM in SODIUM CHLORIDE 0.9% 100 ML IVPB SCH (06:43)
[2023-04-22 08:24] VITALS: BP 151/62; PULSE 66; RESP 18; TEMP 97.8
[2023-04-22] MEDS: ASPIRIN 325 MG TAB PO SCH (08:37)
[2023-04-22] MEDS: LOSARTAN 25 MG TAB PO SCH (08:37)
[2023-04-22] MEDS ORDERED: allopurinoL 100 MG TAB PO SCH (09:00)
[2023-04-22] MEDS ORDERED: ATORVASTATIN 40 MG TAB PO SCH (09:00)
[2023-04-22] MEDS ORDERED: atenoloL 25 MG TAB PO SCH (09:00)
--- NOTE | 2023-04-22 10:10 | P.DS ---
Providers Expected date of discharge: 04/22/23 Attending physician: Jefry Norman Consults: 04/21/23 14:07 Consult Physician Routine Consulting Provider: Dane Mejia Consult Reason/Comments: medical management Do you want consulting provider notified?: Yes Primary care physician: Dane Mejia - Discharge Diagnosis(es) (1) Osteoarthritis of left knee Current Visit: Yes Status: Acute (2) S/P total knee arthroplasty Current Visit: Yes Status: Acute Hospital Course: This is a 73-year-old male with known history of degenerative arthritis of the left knee. The patient presented for evaluation as an outpatient. After discussion and consideration patient elects to proceed with total knee arthroplasty. The patient is seen preoperatively by Dr. Norman and medically cleared for surgery by their primary care physician. Patient is admitted to [facility] on 04/21/2023 for total knee arthroplasty. The procedure is performed without complication or sequelae. The patient is doing well postoperatively. Labs and vital signs are stable on day of discharge. On day of discharge patient's knee incision is healing well. There is minimal erythema. There is no drainage noted at this time. There is minimal soft tissue swelling to the knee. Patient has full foot and ankle motion without difficulty or pain. Calf is soft and nontender to palpation. Neurovascular status to the left lower extremity is intact. Patient is discharged home in good condition. Please see med rec for accurate list of home medications. Plan - Discharge Summary Discharge Rx Participant: No New Discharge Prescriptions: New HYDROcodone/APAP 7.5-325MG [[place] 7.5-325] 1 - 2 tab PO Q6H PRN #32 tab PRN Reason: Pain Aspirin 325 mg PO BID #60 tab Sennosides [Senokot] 2 tab PO DAILY PRN #60 tablet PRN Reason: Constipation No Action Insulin Glargine,Hum.rec.anlog [Lantus Solostar Pen] 26 unit SQ HS Cholecalciferol [Vitamin D3 (25 Mcg = 1000 Iu)] 50 mcg PO DAILY Insulin Aspart [NovoLOG Flexpen] 13 units SQ TID-W/MEALS Losartan [Cozaar] 25 mg PO BID Tamsulosin [Flomax] 0.4 mg PO HS allopurinoL [Zyloprim] 200 mg PO DAILY Multivitamins, Thera [Multivitamin (formulary)] 1 tab PO DAILY Levothyroxine Sodium [Synthroid] 100 mcg PO DAILY Aspirin [Adult Low Dose Aspirin EC] 81 mg PO DAILY Rosuvastatin [Crestor] 20 mg PO DAILY atenoloL [Tenormin] 25 mg PO DAILY #30 tab Discharge Medication List Aspirin [Adult Low Dose Aspirin EC] 81 mg PO DAILY 12/19/21 [History] Cholecalciferol [Vitamin D3 (25 Mcg = 1000 Iu)] 50 mcg PO DAILY 12/19/21 [History] Insulin Aspart [NovoLOG Flexpen] 13 units SQ TID-W/MEALS 12/19/21 [History] Insulin Glargine,Hum.rec.anlog [Lantus Solostar Pen] 26 unit SQ HS 12/19/21 [History] Levothyroxine Sodium [Synthroid] 100 mcg PO DAILY 12/19/21 [History] Multivitamins, Thera [Multivitamin (formulary)] 1 tab PO DAILY 12/19/21 [History] Tamsulosin [Flomax] 0.4 mg PO HS 12/19/21 [History] allopurinoL [Zyloprim] 200 mg PO DAILY 12/19/21 [History] Rosuvastatin [Crestor] 20 mg PO DAILY 12/02/22 [History] atenoloL [Tenormin] 25 mg PO DAILY #30 tab 02/04/23 [Rx] Losartan [Cozaar] 25 mg PO BID 04/16/23 [History] Aspirin 325 mg PO BID #60 tab 04/21/23 [Rx] HYDROcodone/APAP 7.5-325MG [[place] 7.5-325] 1 - 2 tab PO Q6H PRN #32 tab 04/21/23 [Rx] Sennosides [Senokot] 2 tab PO DAILY PRN #60 tablet 04/21/23 [Rx] Follow up Appointment(s)/Referral(s): [facility] [NON-STAFF] - As Needed Jefry Norman DO [Doctor of Osteopathic Medicine] - 2 Weeks Activity/Diet/Wound Care/Special Instructions: Weightbearing as tolerated with a walker. CPM 5-6h daily as tolerated. Leave dressing intact. Dressing may be removed by home care nurse or by patient in 7 days. Then change dressing twice daily until follow up. May shower with initial dressing intact and after removal. If dressing become saturated, please remove. Recommend use of compression stockings daily until follow up to help prevent swelling and blood clots. May remove at night before sleeping. Please take aspirin 325mg twice daily for 30 days to prevent blood clots. Please follow up with [facility] and call with any questions or concerns, . Discharge Disposition: HOME WITH HOME HEALTH SERVICES
[2023-04-22] MEDS ORDERED: PANTOPRAZOLE 40 MG/10 ML VIAL IVP SCH (10:15)
--- NOTE | 2023-04-22 10:27 | P.CONS ---
History of Present Illness - Reason for Consult Consult date: 04/22/23 Medical management diabetes mellitus, hypertension Requesting physician: Jefry Norman - Chief Complaint Left knee osteoarthritis status post left total knee arthroplasty - History of Present Illness This is a pleasant 73-year-old gentleman with past medical history significant for osteoarthritis ,obesity, severe aortic stenosis, recent TAVR 02/08, second degree type II heart block- status post recent permanent dual-chamber pacemaker placement 02/08, [id number] type II, diabetes mellitus type 2, hypertension,BPH and multiple other medical issues, status post left total knee arthroplasty. Tolerated procedure well. Pain control. Passing flatus. Good diet intake with no nausea vomiting or diarrhea. Denies chest pain, palpitations or shortness of breath. PT pending. Review of Systems Constitutional: Denied any fatigue denied any fever. Cardio vascular: denied any chest pain, palpitations Gastrointestinal denied any nausea vomiting Pulmonary: Denied any shortness of breath cough Neurologic denied any new focal deficits ROS Statement: Those systems with pertinent positive or pertinent negative responses have been documented in the HPI. ROS Other: All systems not noted in ROS Statement are negative. Past Medical History Past Medical History: Diabetes Mellitus, Hearing Disorder / Deafness, Hypertension, Osteoarthritis (OA), Renal Disease, Thyroid Disorder Additional Past Medical History / Comment(s): CHRONIC KIDNEY DISEASE, MACULAR DEGENERATION, NEUROPATHY - BOTH FEET History of Any Multi-Drug Resistant Organisms: None Reported Past Surgical History: Appendectomy, Heart Catheterization, Joint Replacement, Pacemaker Additional Past Surgical History / Comment(s): BILAT CATARACTS REMOVED WITH LENS IMPLANTS. COLONOSCOPY, TOTAL RIGHT HIP. VALVE REPLACEMENT 01/28/2023 Past Anesthesia/Blood Transfusion Reactions: No Reported Reaction Type of Cardiac Device: Permanent Pacemaker Device Placement Date:: 02/03/2023 Past Psychological History: No Psychological Hx Reported Smoking Status: Never smoker Past Alcohol Use History: Occasional Additional Past Alcohol Use History / Comment(s): couple drinks per week Past Drug Use History: None Reported - Past Family History Mother Family Medical History: Cancer Medications and Allergies Home Medications Medication Instructions Recorded Confirmed Type Aspirin [Adult Low Dose Aspirin EC] 81 mg PO DAILY 12/19/21 04/16/23 History Cholecalciferol [Vitamin D3 (25 50 mcg PO DAILY 12/19/21 04/21/23 History Mcg = 1000 Iu)] Insulin Aspart [NovoLOG Flexpen] 13 units SQ TID-W/MEALS 12/19/21 04/21/23 History Insulin Glargine,Hum.rec.anlog 26 unit SQ HS 12/19/21 04/21/23 History [Lantus Solostar Pen] Levothyroxine Sodium [Synthroid] 100 mcg PO DAILY 12/19/21 04/21/23 History Multivitamins, Thera [Multivitamin 1 tab PO DAILY 12/19/21 04/21/23 History (formulary)] Tamsulosin [Flomax] 0.4 mg PO HS 12/19/21 04/21/23 History allopurinoL [Zyloprim] 200 mg PO DAILY 12/19/21 04/21/23 History Rosuvastatin [Crestor] 20 mg PO DAILY 12/02/22 04/21/23 History atenoloL [Tenormin] 25 mg PO DAILY #30 tab 02/04/23 04/21/23 Rx Losartan [Cozaar] 25 mg PO BID 04/16/23 04/21/23 History Aspirin 325 mg PO BID #60 tab 04/21/23 Rx HYDROcodone/APAP 7.5-325MG [Salol 1 - 2 tab PO Q6H PRN #32 tab 04/21/23 Rx 7.5-325] Sennosides [Senokot] 2 tab PO DAILY PRN #60 tablet 04/21/23 Rx Allergies Allergy/AdvReac Type Severity Reaction Status Date / Time albuterol Allergy Rash/Hives Verified 04/21/23 12:19 Physical Exam Vitals: Vital Signs Temp Pulse Resp BP Pulse Ox 04/22/23 07:22 97.8 F 66 18 151/62 96 04/22/23 01:20 97.5 F L 65 19 130/73 95 04/21/23 20:20 58 L 129/64 04/21/23 20:05 53 L 144/75 95 04/21/23 19:50 59 L 123/67 94 L 04/21/23 19:35 55 L 136/79 96 04/21/23 19:20 58 L 148/66 94 L 04/21/23 19:05 61 152/62 95 04/21/23 18:50 60 127/75 95 04/21/23 18:35 58 L 117/69 96 04/21/23 18:20 64 127/76 95 04/21/23 17:55 54 L 18 137/72 99 04/21/23 17:40 55 L 18 138/61 98 04/21/23 17:25 58 L 16 132/60 99 04/21/23 17:05 56 L 16 133/73 98 04/21/23 16:50 55 L 18 138/65 99 04/21/23 16:35 55 L 16 138/65 98 04/21/23 16:20 55 L 16 137/61 99 04/21/23 16:05 97.6 F 58 L 16 101/50 97 04/21/23 13:29 54 L 18 194/79 98 04/21/23 12:34 97.8 F 72 20 190/81 98 Intake and Output 04/21/23 04/22/23 04/22/23 22:59 06:59 14:59 Intake Total 850 Output Total 100 Balance 750 Intake: IV 650 Oral 200 Output: Estimated Blood Loss 100 Other: # Voids 1 Weight 140.1 kg VITAL SIGNS: As above CONSTITUTIONAL: Pleasant, well-nourished ,Alert and oriented 3, sitting up in bed, no acute distress HEENT: Normocephalic. Pupils are equal, round. Sclerae anicteric. MMM. Neck supple,no JVD. CHEST EXAMINATION: Unlabored, equal air entry, clear to auscultation. HEART EXAMINATION: Regular rate and rhythm. S1, S2 heard. No murmurs, gallops or rub. ABDOMEN: Soft, nontender. Positive bowel sounds. EXTREMITIES: 2+ peripheral pulses, no lower extremity edema and no calf tenderness. NEUROLOGIC EXAMINATION: Cranial first 2 through 12 grossly intact. No focal deficits. Results Labs: Abnormal Lab Results - Last 24 Hours (Table) 04/21/23 04/21/23 04/21/23 Range/Units 12:49 17:44 21:03 POC Glucose (mg/dL) 169 H 233 H 229 H (70-110) mg/dL 04/22/23 Range/Units 06:19 POC Glucose (mg/dL) 186 H (70-110) mg/dL Assessment and Plan Assessment: Left knee OA, status post left total knee arthroplasty. History of Severe aortic stenosis ,Recent TAVER 02/08, History of second-degree heart block type II , status post PPM, post TAVR 02/08 CAD, history NSTEMI, Type II Hypertension Diabetes mellitus type 2, hemoglobin A1c 6.5-7, repeat level pending. Chronic kidney disease stage IV with baseline creatinine 1.9 BPH Morbid obesity, BMI 46 Plan: Continue on current medication regime ,monitoring and symptomatic treatment. Aggressive pulmonary toileting with incentive spirometer reinforced. Telemetry monitoring. PPI ordered for GI prophylaxis. Pain management and DVT prophylaxis as per primary. PT. Hemoglobin A1c pending. Follow-up with PCP in one week. Thank you for the consult. The impression and plan of care has been dictated as directed. : I performed a history and examination of this patient, discussed the same with the dictator. I agree with the dictator's note ,documented as a scribe. Any additional findings or plans will be noted.
[2023-04-22 11:28] LABS: Glucose,Whole Blood 253 mg/dL (70-110)
[2023-04-22 13:49] LABS: Basophils # (A) 0.01 X 10*3/uL (0.00-0.10); Basophils % (A) 0.1 %; Eosinophils # (A) 0 X 10*3/uL (0.04-0.35); Eosinophils % (A) 0 %; HCT 35.2 % (39.6-50.0); Lymphocytes # (A) 0.99 X 10*3/uL (0.90-5.00); Lymphocytes % (A) 6.2 %; MCH 31.4 pg (27.0-32.0); MCHC 31.3 d/dL (32.0-37.0); MCV 100.6 FL (80.0-97.0); Mean Platelet Volume 11.2 FL (9.5-12.2); Monocytes # (A) 1.16 X 10*3/uL (0.20-1.00); Monocytes % (A) 7.2 %; NRBC Per 100 WBC 0 X 10*3/uL (0.00-0.01); Neutrophils # (A) 13.73 X 10*3/uL (1.80-7.70); Neutrophils % (A) 85.8 %; Platelet Count 207 X 10*3/uL (140-440); RDW 14.6 % (11.5-14.5); WBC 16.01 X 10*3/uL (4.50-10.00)
== END 2023-04-22 12:50 | disposition home health service (06) ==
LOC: OR 11:05 → 4SSUR 16:00 → OR 04-22 12:45
PROVIDERS: ATTEND Orthopaedic Surgery
DX: M17.12 Unilateral primary osteoarthritis, left knee (principal); G89.18 Other acute postprocedural pain; I10 Essential (primary) hypertension; E11.9 Type 2 diabetes mellitus without complications; E07.9 Disorder of thyroid, unspecified; I35.0 Nonrheumatic aortic (valve) stenosis; Z90.49 Acquired absence of other specified parts of digestive tract; Z95.1 Presence of aortocoronary bypass graft; Z86.59 Personal history of other mental and behavioral disorders; Z79.899 Other long term (current) drug therapy; Z79.82 Long term (current) use of aspirin
CPT/HCPCS: 97161; 64999; 64448; 85025; 73560; 27447; C1713; C1776; C1751; J2250; J1100; J0690 ×3; J2405; J3010; J2795; C9113; J1170 ×2

== ENCOUNTER → 2024-02-01 | Outpatient (CLI) | payer MEDICARE, OTHER ==
[2024-02-01 11:45] LABS: Basophils % (A) 0 %; Eosinophils # (A) 0.2 k/uL (0-0.7); Eosinophils % (A) 2 %; HCT 37.9 % (39.0-53.0); HGB 11.9 gm/dL (13.0-17.5); Hypochromasia Slight; Lymphocytes # (A) 1.1 k/uL (1.0-4.8); Lymphocytes % (A) 13 %; MCH 31.9 pg (25.0-35.0); MCHC 31.4 g/dL (31.0-37.0); MCV 101.8 fL (80.0-100.0); Macrocytosis Slight; Monocytes # (A) 0.5 k/uL (0-1.0); Monocytes % (A) 6 %; Neutrophils # (A) 6.3 k/uL (1.3-7.7); Neutrophils % (A) 77 %; Platelet Count 191 k/uL (150-450); RBC 3.73 m/uL (4.30-5.90); RDW 14.5 % (11.5-15.5); WBC 8.3 k/uL (3.8-10.6)
[2024-02-01 12:09] LABS: ALT 22 U/L (4-49); AST 28 U/L (17-59); African American GFR (CKD) 33 (>60 ml/min/1.73 sqM); Albumin 3.5 g/dL (3.5-5.0); Albumin/Globulin Ratio 1.1; Alkaline Phosphatase 99 U/L (38-126); Anion Gap 5 mmol/L; Blood Urea Nitrogen 41 mg/dL (9-20); Carbon Dioxide 24 mmol/L (22-30); Chloride 109 mmol/L (98-107); Globulin 3.1 g/dL; Glucose 132 mg/dL (74-99); Non-African American GFR(CKD) 28 (>60 ml/min/1.73 sqM); Potassium 5.8 mmol/L (3.5-5.1); Sodium 138 mmol/L (137-145); Total Bilirubin 0.5 mg/dL (0.2-1.3); Total Protein 6.6 g/dL (6.3-8.2)
== END | disposition home or self-care (01) ==
LOC: LABWHC1 11:18
PROVIDERS: ATTEND Nurse Practitioner Family
DX: I35.0 Nonrheumatic aortic (valve) stenosis (principal); N18.31 Chronic kidney disease, stage 3a; Z95.2 Presence of prosthetic heart valve
CPT/HCPCS: 36415; 80053; 85025